=== PATIENT | female | born 1995 | race Caucasian/White ===

== ENCOUNTER 2022-01-13 12:40 | Outpatient (CLI) | payer MEDICAID, SELFPAY ==
--- NOTE | 2022-01-13 13:09 | MM_ITS ---
WS: [id number] LEFT 3D TOMOSYNTHESIS DIGITAL MAMMOGRAPHY WITH CAD CLINICAL INFORMATION: LT NIPPLE DISCHARGE / LUMP COMPARISON: None. TECHNIQUE: 3 views of the left breast were obtained. FINDINGS: Scattered fibroglandular densities of the left breast. No suspicious focal mass, asymmetry, calcifications, or architectural distortion. Ultrasound of the a reola described below ULTRASOUND BREAST LEFT TECHNIQUE: Ultrasound left breast focused area of concern. CLINICAL INFORMATION: LT NIPPLE DISCHARGE / LUMP FINDINGS: Ultrasound LEFT breast at the areola. No suspicious cystic or solid lesions. Normal parenchymal tissu e at the areola. No suspicious findings to target for biopsy MM/[place] [id number] IMPRESSION: BI-RADS: 2-Benign FOLLOW UP: Age 38 Recommend annual screen mammography age 40..
== END 2022-01-13 12:41 | disposition home or self-care (01) ==
LOC: RAD 12:41
PROVIDERS: PCP Registered Nurse; Visit Provider Registered Nurse
DX: N63.20 Unspecified lump in the left breast, unspecified quadrant (principal); N64.52 Nipple discharge
CPT/HCPCS: 76642; 77061

== ENCOUNTER → 2022-04-14 12:11 | Outpatient (BNVA) | payer MEDICAID, SELFPAY | PROVIDERS: PCP Registered Nurse; Visit Provider Nurse Practitioner | DX: S80.10XA Contusion of unspecified lower leg, initial encounter (principal); T14.8XXA Other injury of unspecified body region, initial encounter; X58.XXXA Exposure to other specified factors, initial encounter | CPT/HCPCS: 80053; 84443; 85025 ==

== ENCOUNTER → 2022-09-28 13:48 | Outpatient (BNVA) | payer MEDICAID, SELFPAY | PROVIDERS: PCP Nurse Practitioner; Visit Provider Nurse Practitioner | DX: E66.9 Obesity, unspecified (principal) | CPT/HCPCS: 80053; 84443 ==

== ENCOUNTER → 2022-12-28 08:14 | Outpatient (BNVA) | payer MEDICAID, SELFPAY | PROVIDERS: PCP Nurse Practitioner; Visit Provider Nurse Practitioner Family | DX: R10.9 Unspecified abdominal pain (principal) | CPT/HCPCS: 81000 ==

== ENCOUNTER → 2023-01-04 09:28 | Outpatient (BNVA) | payer MEDICAID, SELFPAY | PROVIDERS: PCP Nurse Practitioner; Visit Provider Nurse Practitioner Family | DX: R30.0 Dysuria (principal) | CPT/HCPCS: 81000 ==

== ENCOUNTER → 2023-04-27 13:20 | Outpatient (BNVA) | payer MEDICAID, SELFPAY | PROVIDERS: PCP Nurse Practitioner; Visit Provider Nurse Practitioner Family | DX: E66.9 Obesity, unspecified (principal); R42 Dizziness and giddiness; Z79.899 Other long term (current) drug therapy; Z13.6 Encounter for screening for cardiovascular disorders; K21.9 Gastro-esophageal reflux disease without esophagitis; H66.90 Otitis media, unspecified, unspecified ear; R09.81 Nasal congestion | CPT/HCPCS: 80053; 80061; 81003; 83036; 84443; 85025 ==

== ENCOUNTER → 2023-05-17 10:47 | Outpatient (BNVA) | payer MEDICAID, SELFPAY | PROVIDERS: PCP Nurse Practitioner; Visit Provider Nurse Practitioner Family | DX: E66.9 Obesity, unspecified (principal); K21.9 Gastro-esophageal reflux disease without esophagitis; Z79.899 Other long term (current) drug therapy; D64.9 Anemia, unspecified; M54.9 Dorsalgia, unspecified | CPT/HCPCS: 80048; 83036; 83550 ==

== ENCOUNTER → 2023-11-13 14:08 | Outpatient (BNVA) | payer MEDICAID, SELFPAY | PROVIDERS: PCP Nurse Practitioner Family; Visit Provider Nurse Practitioner Family | DX: N39.0 Urinary tract infection, site not specified (principal); R51.9 Headache, unspecified | CPT/HCPCS: 81003; 87086 ==

== ENCOUNTER → 2024-01-26 15:43 | Outpatient (BNVA) | payer MEDICAID, SELFPAY | PROVIDERS: PCP Nurse Practitioner Family; Visit Provider Emergency Medicine | DX: J02.9 Acute pharyngitis, unspecified (principal) | CPT/HCPCS: 87880 ==

== ENCOUNTER → 2024-02-29 11:36 | Outpatient (BNVA) | payer MEDICAID, SELFPAY | PROVIDERS: PCP Nurse Practitioner Family; Visit Provider Nurse Practitioner | DX: S49.92XA Unspecified injury of left shoulder and upper arm, initial encounter (principal); X58.XXXA Exposure to other specified factors, initial encounter | CPT/HCPCS: 73030 ==

== ENCOUNTER 2024-03-24 15:07 | Emergency (ER) | payer BC, MEDICAID, SELFPAY ==
[2024-03-24 15:19] VITALS: BP 126/78; PULSE 80; RESP 18; TEMP 36.7; O2SAT 98; BMI 51.0
--- NOTE | 2024-03-24 16:17 | ECG_ITS ---
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
--- NOTE | 2024-03-24 16:19 | ED_ITS ---
HPI - Anxiety General: Chief Complaint: Anxiety Stated Complaint: high bp Time Seen by Provider: 03/24/24 16:00 Source: patient Mode of arrival: ambulatory Limitations: no limitations History of Present Illness: 28-year-old female with a history anxiet y along with anxiety attack states she had had a panic attack today. States she had had palpitations felt dizzy and was hypotensive which is how she normally feels with her panic attack [facility] here due to her hypertension she states she feels much improved and calm here currently her blood pressure here is normal denies any chest pain currently denies any dizziness currently denies headache. Associated symptoms: Reports palpitations; Deny chest pain, chills, fever(s), headache(s), nausea or vomiting Related Data Previous Rx's Medication Instructions Recorded montelukast 10 mg tablet 10 mg PO DAILY #30 tabs 07/04/22 (Singulair) diclofenac sodium 1 % topical gel 2 g topical QID #100 grams 07/06/22 (Voltaren Arthritis Pain) ferrous sulfate 325 mg (65 mg 325 mg PO DAILY #90 tabs 05/18/23 iron) tablet celecoxib 100 mg capsule (Celebrex) 100 mg PO BID #60 caps 09/05/23 metformin 500 mg tablet 500 mg PO BIDWMEAL #60 tabs 10/02/23 magnesium oxide 400 mg (241.3 mg See Rx Instructions PO DAILY #60 11/13/23 magnesium) tablet tabs omeprazole 40 mg capsule,delayed 40 mg PO DAILY #90 caps 11/27/23 release aripiprazole 5 mg tablet See Rx Instructions .Route 11/28/23 .COMPLEX #30 tabs sertraline 100 mg tablet See Rx Instructions .Route 11/28/23 .COMPLEX #60 tabs fluticasone propionate 50 See Rx Instructions .Route 12/04/23 mcg/actuation nasal .COMPLEX #16 grams spray,suspension ibuprofen 600 mg tablet 600 mg PO Q8H PRN pain #30 tabs 01/26/24 diclofenac sodium 3 % topical gel 1 applic topical BID PRN pain #100 02/29/24 grams Allergies Allergy/AdvReac Type Severity Reaction Status Date / Time duloxetine Allergy sedation Verified 02/29/24 11:14 Review of Systems Const: Denies: fever(s), chills, body aches or change in appetite ENMT: Denies: throat pain or dental pain Card: Reports: palpitations; Denies: chest pain Resp: Denies: dyspnea GI: Denies: abdominal pain, nausea, vomiting or diarrhea Musc: Denies: neck pain or back pain Skin/Breast: Denies: rash Neuro: Denies: headache(s) Psych: Reports: anxiety PFSH ED PFSH: Medical History Headache Urinary tract infection Nasal congestion Otitis media Encounter for screening for cardiovascular disorders Medication management Obesity COVID-19 Pulmonary embolism Migraine Depression Family History Other Psychiatric illness Denies family history of Diabetes CAD (coronary artery disease) Chronic kidney disease (CKD) Lung disease Cancer Hypertension Stroke Social History Smoking and tobacco/nicotine status: never used tobacco/nicotine Alcohol intake: never Substance/Drug Use: never Physical Exam Const: COMMON NORMALS: no acute distress, patient oriented x3 and healthy appearing HENMT: COMMON NORMALS: normocephalic and atraumatic HEAD & SCALP: normocephalic and atraumatic Eye: COMMON NORMALS: Equal, round and reactive pupils present and EOMs intact bilaterally PUPIL: Yes Equal, round and reactive pupils present Neck/C-Spine: COMMON NORMALS: full ROM and supple Chest: COMMONS NORMALS: normal inspection of the chest Resp: COMMON NORMALS: normal respiratory effort, No retractions, No use of accessory muscles and clear to auscultation bilaterally AUSCULTATION: clear to auscultation bilaterally Cardio: COMMON NORMALS: regular rate, regular rhythm and No murmurs present (Cardio) RATE: regular rate RHYTHM: regular rhythm Extremity: COMMON NORMALS: normal to inspection and full ROM Neuro: COMMON NORMALS: patient oriented x3, moves all extremities and no focal motor deficits SPEECH: speech normal GAIT: Yes Normal gait present MOTOR EXAM: 5/5 motor strength present throughout Psych: COMMON NORMALS: mental status grossly normal, Normal thought process present and cooperative THOUGHT PROCESS: Normal thought process present Skin: COMMON NORMALS: no rashes or lesions noted and no wounds GENERAL SKIN EXAM: no rashes or lesions noted Course Vital Signs: Vital signs: Vital Signs Temperature 98.1 F 03/24/24 15:19 Pulse Rate 80 03/24/24 15:19 Respiratory Rate 18 03/24/24 15:19 Blood Pressure 126/78 03/24/24 15:19 Pulse Oximetry 98 03/24/24 15:19 Oxygen Delivery Me thod Room Air 03/24/24 15:19 MDM - Anxiety Medical Decision Making Patient presents here with anxiety attack she is well-appearing here asymptomatic here able to ambulate without any difficulty she stable for discharge follow-up with PCP return if worsening. Medical Records I reviewed the patient's medical records. No radiology studies performed this visit EKG Data EKG 1: I personally reviewed and interpreted this EKG as follows: EKG interpretation date: 03/24/24 EKG interpretation time: 16:22 Interpretation: nsr hr [address] elevation qrs 80 qtc 407 Discharge Plan Discharge Patient Disposition: Home Clinical Impression: Acute anxiety Condition: Stable Prescriptions: No Action montelukast [Singulair] 10 mg tablet 10 mg PO DAILY Qty: 30 3RF diclofenac sodium [Voltaren Arthritis Pain] 1 % gel 2 g topical QID Qty: 100 0RF Rx Instructions: apply to area of pain magnesium oxide 400 mg (241.3 mg magnesium) tablet See Rx Instructions PO DAILY Qty: 60 0RF Rx Instructions: take 1 tab daily and can take 1 every 4 hours with headache orally daily; ibuprofen 600 mg tablet 600 mg PO Q8H PRN (Reason: pain) Qty: 30 0RF diclofenac sodium 3 % gel 1 applic topical BID PRN (Reason: pain) Qty: 100 0RF ferrous sulfate 325 mg (65 mg iron) tablet 325 mg PO DAILY Qty: 90 3RF celecoxib [Celebrex] 100 mg capsule 100 mg PO BID Qty: 60 3RF metformin 500 mg tablet 500 mg PO BIDWMEAL Qty: 60 4RF omeprazole 40 mg capsule,delayed release(DR/EC) 40 mg PO DAILY Qty: 90 3RF sertraline 100 mg tablet See Rx Instructions .ROUTE .COMPLEX Qty: 60 0RF Dose Instruction: TAKE 2 TABLETS BY MOUTH EVERY DAY Rx Instructions: TAKE 2 TABLETS BY MOUTH EVERY DAY aripiprazole 5 mg tablet See Rx Instructions .ROUTE .COMPLEX Qty: 30 0RF Dose Instruction: TAKE 1 TABLET BY MOUTH EVERY DAY Rx Instructions: TAKE 1 TABLET BY MOUTH EVERY DAY fluticasone propionate 50 mcg/actuation spray,suspension See Rx Instructions .ROUTE .COMPLEX Qty: 16 1RF Dose Instruction: ADMINISTER 1 SPRAY INTO EACH NOSTRIL TWICE DAILY NEEDED FOR NASAL CONGESTION Rx Instructions: ADMINISTER 1 SPRAY INTO EACH NOSTRIL TWICE DAILY NEEDED FOR NASAL CONGESTION Discharge Orders: Discharge ED (Routine); Ordered 03/24/24 Ordered By: Attila Molina Referrals: Haresh Cummins FNP [Primary Care Provider] - 4-7 days Discharge Diet: Advance as tolerated Discharge Activity: Resume usual activity Patient Instructions: Anxiety (ED) Coding Level of Care Code ED Baby Registry Sales Consultant for Ankit Powers
[2024-03-24 16:43] VITALS: BP 136/72; PULSE 91; O2SAT 98
[2024-03-24] MEDS: meclizine 25 mg tablet 50 MG PO (16:43)
== END 2024-03-24 16:44 | disposition home or self-care (01) ==
PROVIDERS: Emergency Provider Emergency Medicine; PCP Nurse Practitioner Family
DX: F41.8 Other specified anxiety disorders (principal); Z86.711 Personal history of pulmonary embolism
CPT/HCPCS: 93005; 99283; J8597

== ENCOUNTER → 2024-04-28 10:27 | Outpatient (BNVA) | payer BC, MEDICAID, SELFPAY | PROVIDERS: PCP Nurse Practitioner Family; Visit Provider Nurse Practitioner | DX: R50.9 Fever, unspecified (principal) | CPT/HCPCS: 87400 ==

== ENCOUNTER → 2024-05-07 15:26 | Outpatient (BNVA) | payer BC, MEDICAID, SELFPAY | PROVIDERS: PCP Nurse Practitioner Family | DX: R39.9 Unspecified symptoms and signs involving the genitourinary system (principal) | CPT/HCPCS: 81000 ==

== ENCOUNTER → 2024-07-03 16:34 | Outpatient (BNVA) | payer BC, MEDICAID, SELFPAY | PROVIDERS: PCP Nurse Practitioner Family; Visit Provider Emergency Medicine | DX: M25.561 Pain in right knee (principal) | CPT/HCPCS: 73562 ==

== ENCOUNTER → 2024-08-08 10:17 | Outpatient (BNVA) | payer BC, MEDICAID, SELFPAY | PROVIDERS: PCP Nurse Practitioner Family; Visit Provider Emergency Medicine | DX: N39.0 Urinary tract infection, site not specified (principal); M54.9 Dorsalgia, unspecified | CPT/HCPCS: 81000; 87086 ==

== ENCOUNTER → 2024-08-13 12:35 | Outpatient (BNVA) | payer BC, MEDICAID, SELFPAY | PROVIDERS: PCP Nurse Practitioner Family; Visit Provider Emergency Medicine | DX: R81 Glycosuria (principal); N10 Acute pyelonephritis | CPT/HCPCS: 82962; 87086 ==

== ENCOUNTER → 2024-08-15 14:51 | Outpatient (BNVA) | payer BC, MEDICAID, SELFPAY | PROVIDERS: PCP Family Medicine; Visit Provider Emergency Medicine | DX: R52 Pain, unspecified (principal); R53.83 Other fatigue; W57.XXXA Bitten or stung by nonvenomous insect and other nonvenomous arthropods, initial encounter | CPT/HCPCS: 80053; 84443; 85025; 86308; 86618; 86666; 86757 ==

== ENCOUNTER 2024-09-04 21:06 | Emergency (ER) | payer BC, MEDICAID, SELFPAY ==
[2024-09-04 21:10] VITALS: BP 153/91; PULSE 84; RESP 16; TEMP 36.7; O2SAT 98
[2024-09-04 22:56] LABS: Influenza A NEGATIVE (Negative); Influenza B NEGATIVE (Negative); Respiratory Syncytial Virus Ce NEGATIVE (Negative); SARS-CoV-2 PCR NEGATIVE (Negative)
--- NOTE | 2024-09-04 23:56 | W.ED.URI ---
HPI - URI/Sore Throat General: Chief Complaint: Upper Respiratory Infection Stated Complaint: Cant breathe throat swelling Time Seen by Provider: 09/04/24 22:34 Source: patient Mode of arrival: ambulatory Limitations: no limitations History of Present Illness: 28yo female presents with hoarse voice. Patient states that it started this morning. She states her left ear has been hurting her a little as well. Patient denies sore throat, congestion, difficulty breathing, vomiting, diarrhea. Associated symptoms: Deny abdominal pain, chills, chest pain or fever(s) Related Data Previous Rx's ?Medication ?Instructions ?Recorded ferrous sulfate 325 mg (65 mg 325 mg PO DAILY #90 tabs 05/18/23 iron) tablet metformin 500 mg tablet 500 mg PO BIDWMEAL #60 tabs 10/02/23 magnesium oxide 400 mg (241.3 mg See Rx Instructions PO DAILY #60 11/13/23 magnesium) tablet tabs omeprazole 40 mg capsule,delayed 40 mg PO DAILY #90 caps 11/27/23 release aripiprazole 5 mg tablet See Rx Instructions .Route 11/28/23 .COMPLEX #30 tabs sertraline 100 mg tablet See Rx Instructions .Route 11/28/23 .COMPLEX #60 tabs fluticasone propionate 50 See Rx Instructions .Route 12/04/23 mcg/actuation nasal .COMPLEX #16 grams spray,suspension ibuprofen 600 mg tablet 600 mg PO Q8H PRN pain #30 tabs 01/26/24 meclizine 50 mg tablet 50 mg PO BID #20 tabs 04/28/24 albuterol sulfate 90 mcg/actuation 2 puff inhalation Q6H PRN 08/08/24 aerosol inhaler shortness of breath or wheezing #8.5 grams ondansetron 4 mg disintegrating 4 mg PO Q6H PRN nausea and 08/08/24 tablet vomiting #12 tabs fluconazole 150 mg tablet 150 mg PO Q3D 2 doses #2 tabs 08/13/24 promethazine 25 mg tablet 25 mg PO Q4H PRN nausea and 08/13/24 vomiting #20 tabs amoxicillin 875 mg-potassium 1 tab PO BID #7 tabs 09/04/24 clavulanate 125 mg tablet Allergies Allergy/AdvReac Type Severity Reaction Status Date / Time duloxetine Allergy sedation Verified 09/04/24 21:13 Review of Systems Const: Denies: fever(s), chills or body aches ENMT: Reports: other (Hoarse voice) Card: Denies: chest pain Resp: Denies: dyspnea GI: Denies: abdominal pain PFSH ED PFSH: Medical History Headache Urinary tract infection Nasal congestion Otitis media Encounter for screening for cardiovascular disorders Medication management Obesity COVID-19 Pulmonary embolism Migraine Depression Surgical History History of hysterectomy only 1 ovary History of Family History Other Psychiatric illness Denies family history of Diabetes CAD (coronary artery disease) Chronic kidney disease (CKD) Lung disease Cancer Hypertension Stroke Social History Smoking and tobacco/nicotine status: never used tobacco/nicotine Alcohol intake: never Substance/Drug Use: never Household members: spouse and children Marital status: Number of children: 3 Current gender identity: Female Physical Exam Const: COMMON NORMALS: no acute distress, patient oriented x3 and alert GENERAL APPEARANCE: cooperative ORIENTATION/CONSCIOUSNESS: Yes awake OTHER: Patient is sitting upright on the stretcher no acute distress. She is able to give history with no difficulty. She is interactive with exam appropriately. No family is at bedside HENMT: COMMON NORMALS: normocephalic, atraumatic and Normal external nose present HEAD & SCALP: normocephalic and atraumatic NOSE: Normal external nose present and No nasal discharge present TYMPANIC MEMBRANE: TM abnormal TM laterality: left Details: bulging, effusion, fluid behind TM and loss of landmarks MOUTH: other (Hoarse voice) THROAT: postnasal drainage Neck/C-Spine: COMMON NORMALS: full ROM Chest: CHEST: Yes Symmetrical chest wall rise Resp: COMMON NORMALS: normal respiratory effort and clear to auscultation bilaterally AUSCULTATION: clear to auscultation bilaterally Neuro: COMMON NORMALS: patient oriented x3 SENSORIUM/ORIENTATION: Yes alert Psych: COMMON NORMALS: cooperative Course Vital Signs: Vital signs: Vital Signs Temperature 98.1 F 09/04/24 21:10 Pulse Rate 93 09/05/24 00:07 Respiratory Rate 16 09/05/24 00:07 Blood Pressure 108/85 09/05/24 00:07 Pulse Oximetry 96 09/05/24 00:07 Oxygen Delivery Me thod Room Air 09/04/24 21:10 MDM - URI/Sore Throat Medical Decision Making 28yo female presents with hoarse voice. Patient states that it started this morning. She states her left ear has been hurting her a little as well. Patient denies sore throat, congestion, difficulty breathing, vomiting, diarrhea. Patient is nontoxic in appearance. Vital signs are stable. Influenza A/B, COVID-19, and RSV not detected. Discussed findings with patient. Advised this likely a upper respiratory infection. Left otitis media noted on exam. Augmentin prescribed, first dose provided while in the emergency department. Advised patient to increase her fluid intake and continue to monitor symptoms. Recommend she follow-up with primary care, call in about a week with an update of symptoms and to discuss a recheck. Return precautions provided. Patient states understanding and has no further questions or concerns at this time. Differential Diagnosis Likely upper respiratory infection, otitis media, sinusitis and pharyngitis Lab Data I reviewed the patient's lab results. Laboratory Results Influenza A (PCR) Negative (Negative) 09/04/24 22:16 Influenza Type B (PCR) Negative (Negative) 09/04/24 22:16 RSV (PCR) Negative (Negative) 09/04/24 22:16 SARS-CoV-2 (PCR) Negative (Negative) 09/04/24 22:16 No radiology studies performed this visit Discharge Plan Discharge Patient Disposition: Home Clinical Impression: Acute left otitis media URI (upper respiratory infection) Qualifiers: URI type: unspecified viral URI Qualified Code(s): J06.9 - Acute upper respiratory infection, unspecified Condition: Stable Prescriptions: New amoxicillin-pot clavulanate 875-125 mg tablet 1 tab PO BID Qty: 7 0RF Discontinued levofloxacin 750 mg tablet 750 mg PO DAILY 7 Days Qty: 7 0RF No Action albuterol sulfate 90 mcg/actuation HFA aerosol inhaler 2 puff inhalation Q6H PRN (Reason: shortness of breath or wheezing) Qty: 8.5 0RF ondansetron 4 mg tablet,disintegrating 4 mg PO Q6H PRN (Reason: nausea and vomiting) Qty: 12 0RF Rx Instructions: 340b please fluconazole 150 mg tablet 150 mg PO Q3D 0 Days Qty: 2 1RF Rx Instructions: may repeat second dose 72 hrs after first dose if symptoms persist promethazine 25 mg tablet 25 mg PO Q4H PRN (Reason: nausea and vomiting) Qty: 20 1RF magnesium oxide 400 mg (241.3 mg magnesium) tablet See Rx Instructions PO DAILY Qty: 60 0RF Rx Instructions: take 1 tab daily and can take 1 every 4 hours with headache orally daily; ibuprofen 600 mg tablet 600 mg PO Q8H PRN (Reason: pain) Qty: 30 0RF meclizine 50 mg tablet 50 mg PO BID Qty: 20 0RF ferrous sulfate 325 mg (65 mg iron) tablet 325 mg PO DAILY Qty: 90 3RF metformin 500 mg tablet 500 mg PO BIDWMEAL Qty: 60 4RF omeprazole 40 mg capsule,delayed release(DR/EC) 40 mg PO DAILY Qty: 90 3RF sertraline 100 mg tablet See Rx Instructions .ROUTE .COMPLEX Qty: 60 0RF Dose Instruction: TAKE 2 TABLETS BY MOUTH EVERY DAY Rx Instructions: TAKE 2 TABLETS BY MOUTH EVERY DAY aripiprazole 5 mg tablet See Rx Instructions .ROUTE .COMPLEX Qty: 30 0RF Dose Instruction: TAKE 1 TABLET BY MOUTH EVERY DAY Rx Instructions: TAKE 1 TABLET BY MOUTH EVERY DAY fluticasone propionate 50 mcg/actuation spray,suspension See Rx Instructions .ROUTE .COMPLEX Qty: 16 1RF Dose Instruction: ADMINISTER 1 SPRAY INTO EACH NOSTRIL TWICE DAILY NEEDED FOR NASAL CONGESTION Rx Instructions: ADMINISTER 1 SPRAY INTO EACH NOSTRIL TWICE DAILY NEEDED FOR NASAL CONGESTION Discharge Orders: Discharge ED (Routine); Ordered 09/05/24 Ordered By: Romeo Caro Referrals: Kayden Kitchen MD [Primary Care Provider, Family Practice] Discharge Diet: Usual diet Discharge Activity: Resume usual activity Patient Instructions: Otitis Media - Adult, Upper Respiratory Infection (ED) Activity Restrictions/Additional Instructions: Augmentin has been sent to the pharmacy for the ear infection The sore throat and postnasal drip is likely related to a viral infection. If there is any bacterial component, Augmentin would cover it Increase your fluid intake and continue to monitor symptoms Follow-up with primary care, call Monday with an update of symptoms and to discuss a recheck Return to the emergency department if any rapid worsening symptoms and as needed Print Language: Swedish Coding Level of Care Code ED Appliquer Zigzag for Ankit Powers
[2024-09-05] MEDS: amoxicillin-clav 875-125 mg Tablet 1 TAB PO (00:05)
[2024-09-05 00:07] VITALS: BP 108/85; PULSE 93; RESP 16; O2SAT 96
== END 2024-09-05 00:08 | disposition home or self-care (01) ==
PROVIDERS: General Practice; Emergency Provider Nurse Practitioner; PCP Family Medicine
DX: J06.9 Acute upper respiratory infection, unspecified (principal); H66.92 Otitis media, unspecified, left ear; Z79.84 Long term (current) use of oral hypoglycemic drugs; Z79.899 Other long term (current) drug therapy; Z88.8 Allergy status to other drugs, medicaments and biological substances; Z11.52 Encounter for screening for COVID-19
CPT/HCPCS: 87637; 99283; J9999

== ENCOUNTER → 2024-11-22 10:54 | Outpatient (BNVA) | payer BC, MEDICAID, SELFPAY | PROVIDERS: PCP Family Medicine; Visit Provider Emergency Medicine | DX: R10.9 Unspecified abdominal pain (principal) | CPT/HCPCS: 81000 ==

== ENCOUNTER 2024-11-25 17:51 | Emergency (ER) | payer BC, MEDICAID, SELFPAY ==
[2024-11-25 18:07] VITALS: BP 134/84; PULSE 87; RESP 16; TEMP 37; O2SAT 97; BMI 52.1
[2024-11-25 18:17] VITALS: BP 134/85; O2SAT 96
--- NOTE | 2024-11-25 19:32 | W.ED.FEMALGU ---
HPI - Female Genitourinary General: Chief complaint: Vaginal Bleeding Stated complaint: vaginal bleeding, abd and vaginal pain Time Seen by Provider: 11/25/24 18:16 History of Present Illness: Patient is a 29-year-old female with history of coagulopathy, no longer on AC, previous DVT, hysterectomy, reports to ED after utilizing sexual toy yesterday with , and had some bleeding. She has also had low back pain that she has seen her primary care physician for. This is on the lower left side. The bleeding per vagina was directly after penetration by mechanical toy. This has been on and off and has streaks noted per vagina. No correlation to urination. No urinary symptoms. Same sexual partners for the last 12 years. Recent STI testing per patient. Associated symptoms: Deny abdominal pain or nausea Related Data Previous Rx's ?Medication ?Instructions ?Recorded omeprazole 40 mg capsule,delayed 40 mg PO DAILY #90 caps 11/27/23 release fluticasone propionate 50 See Rx Instructions .Route 12/04/23 mcg/actuation nasal .COMPLEX #16 grams spray,suspension albuterol sulfate 90 mcg/actuation 2 puff inhalation Q6H PRN 10/28/24 aerosol inhaler shortness of breath or wheezing #8.5 grams aripiprazole 5 mg tablet 5 mg PO DAILY #30 tabs 10/30/24 bupropion HCl 300 mg 24 hr tablet, 300 mg PO QAM #30 tabs 10/30/24 extended release (Wellbutrin XL) sertraline 100 mg tablet 200 mg (2 x 100 mg) PO DAILY #60 10/30/24 tabs trazodone 50 mg tablet 100 mg (2 x 50 mg) PO .HS PRN 10/30/24 insomnia #60 tabs ibuprofen 800 mg tablet 800 mg PO Q8H PRN pain #30 tabs 11/22/24 methocarbamol 750 mg tablet 750 mg PO TID #30 tabs 11/22/24 prednisone 20 mg tablet 60 mg (3 x 20 mg) PO DAILY 5 days 11/22/24 #15 tabs methocarbamol 500 mg tablet 500 mg PO Q8H PRN muscle spasm #30 11/25/24 tabs methylprednisolone 4 mg tablets in See Rx Instructions PO .COMPLEX 11/25/24 a dose pack (Medrol (Lavon)) #21 ea Allergies Allergy/AdvReac Type Severity Reaction Status Date / Time duloxetine Allergy sedation Verified 11/25/24 18:10 Review of Systems General: Reports: 10 or more systems reviewed and unremarkable except in HPI and below Const: Denies: fever(s) or chills Eyes: Denies: change in vision or blurry vision ENMT: Denies: throat pain or mouth pain Card: Denies: chest pain or palpitations Resp: Denies: dyspnea or non-productive cough GI: Denies: abdominal pain, nausea or vomiting : Denies: flank pain or difficulty voiding Musc: Reports: back pain; Denies: neck pain, extremity pain or joint pain PFS ED PFSH: Medical History (Updated 11/25/24 @ 19:35 by JUAN PABLO Lewis) Psychiatric care Adult BMI 50.0-59.9 kg/sq m Headache Urinary tract infection Nasal congestion Otitis media Encounter for screening for cardiovascular disorders Medication management Obesity COVID-19 Pulmonary embolism Migraine Depression Surgical History History of hysterectomy only 1 ovary History of Family History Other Psychiatric illness Denies family history of Diabetes CAD (coronary artery disease) Chronic kidney disease (CKD) Lung disease Cancer Hypertension Stroke Social History Smoking and tobacco/nicotine status: never used tobacco/nicotine Alcohol intake: never Substance/Drug Use: never Household members: spouse and children Marital status: Number of children: 3 Current gender identity: Female Physical Exam Const: COMMON NORMALS: no acute distress, average body habitus and patient oriented x3 GENERAL APPEARANCE: cooperative HENMT: COMMON NORMALS: normocephalic and atraumatic HEAD & SCALP: normocephalic and atraumatic Neck/C-Spine: COMMON NORMALS: full ROM, no lymphadenopathy, supple and no meningeal signs Lymph: LYMPHATIC: no lymphadenopathy noted Cardio: COMMON NORMALS: regular rate and regular rhythm RATE: regular rate RHYTHM: regular rhythm : COMMON NORMALS: Yes no CVA tenderness BLADDER/KIDNEY EXAM: Yes no CVA tenderness EXTERNAL FEMALE EXAM: Yes normal appearance of the urethra and No erythema SPECULUM EXAM - VAGINA: No erythematous, No laceration and No tissue present in vagina SPECULUM EXAM - CERVIX: Yes Cervix absent and Yes Other cervical findings present (Cuff of hysterectomy is intact without erythema or bleeding. No need silve) OB/EXTERNAL & SPECULUM: no tissue noted in vagina Back/Pelvis: COMMON NORMALS: no CVA tenderness Extremity: COMMON NORMALS: normal to inspection, full ROM and capillary refill normal Neuro: COMMON NORMALS: patient oriented x3 MENINGEAL SIGNS: Yes no meningeal signs Psych: COMMON NORMALS: mental status grossly normal, Normal thought process present, cooperative, normal affect and speech normal SPEECH: Yes normal speech THOUGHT PROCESS: Normal thought process present Skin: COMMON NORMALS: no rashes or lesions noted and no wounds GENERAL SKIN EXAM: no rashes or lesions noted Course Vital Signs: Vital signs: Vital Signs Temperature 98.6 F 11/25/24 18:07 Pulse Rate 87 11/25/24 18:07 Respiratory Rate 16 11/25/24 18:07 Blood Pressure 134/85 11/25/24 18:17 Pulse Oximetry 96 11/25/24 18:17 Oxygen Delivery Me thod Room Air 11/25/24 18:07 MDM - Female Medical Decision Making Patient is a 29-year-old female, presents to the emergency room with transient vaginal bleeding post hysterectomy after sexual encounter with mechanical toys and last p.m. Patient also had left low back pain consistent with sciatica, and therefore she was concerned this was associated with her back. They appear to be 2 separate issues. I have checked her entire vaginal vault, and cuff, and there is no area amicable to silver nitrate cauterization. I cannot find an area that was bleeding. I suspect this was transient due to rough intercourse. There is no need for antibiotics or additional intervention at this time. Patient has been reassured, and sciatica has been treated. She will follow-up with her primary care physician. Medical Records I reviewed the patient's medical records. No radiology studies performed this visit Discharge Plan Discharge Patient Disposition: Home Clinical Impression: Abnormal vaginal bleeding Sciatica Qualifiers: Laterality: left Qualified Code(s): M54.32 - Sciatica, left side Condition: Stable Prescriptions: New methocarbamol 500 mg tablet 500 mg PO Q8H PRN (Reason: muscle spasm) Qty: 30 0RF methylprednisolone [Medrol (Lavon)] 4 mg tablets,dose pack See Rx Instructions .ROUTE .COMPLEX Qty: 21 0RF Rx Instructions: for 6 days No Action bupropion HCl [Wellbutrin XL] 300 mg tablet extended release 24 hr 300 mg PO QAM Qty: 30 2RF trazodone 50 mg tablet 100 mg PO .HS PRN (Reason: insomnia) Qty: 60 2RF sertraline 100 mg tablet 200 mg PO DAILY Qty: 60 2RF aripiprazole 5 mg tablet 5 mg PO DAILY Qty: 30 2RF ibuprofen 800 mg tablet 800 mg PO Q8H PRN (Reason: pain) Qty: 30 0RF prednisone 20 mg tablet 60 mg PO DAILY 5 Days Qty: 15 0RF methocarbamol 750 mg tablet 750 mg PO TID Qty: 30 0RF omeprazole 40 mg capsule,delayed release(DR/EC) 40 mg PO DAILY Qty: 90 3RF fluticasone propionate 50 mcg/actuation spray,suspension See Rx Instructions .ROUTE .COMPLEX Qty: 16 1RF Dose Instruction: ADMINISTER 1 SPRAY INTO EACH NOSTRIL TWICE DAILY NEEDED FOR NASAL CONGESTION Rx Instructions: ADMINISTER 1 SPRAY INTO EACH NOSTRIL TWICE DAILY NEEDED FOR NASAL CONGESTION albuterol sulfate 90 mcg/actuation HFA aerosol inhaler 2 puff inhalation Q6H PRN (Reason: shortness of breath or wheezing) Qty: 8.5 0RF Discharge Orders: Discharge ED (Routine); Ordered 11/25/24 Ordered By: Roseann Pabon Referrals: Kayden Kitchen MD [Primary Care Provider, [facility]] Discharge Diet: Usual diet Discharge Activity: Resume usual activity Patient Instructions: Abnormal (Dysfunctional) Uterine Bleeding (ED), Sciatica (ED), Lower Back Exercises (ED), Patient Portal & Mary Instructions Activity Restrictions/Additional Instructions: Return to ED for reoccurrence of vaginal bleeding, temperature greater than 100.4 ?F Return to your primary care physician for follow-up. Call tomorrow for an appointment follow-up next week Print Language: Polish Coding Level of Care Code ED Student Development Specialist for Ankit Powers
[2024-11-25] MEDS: orphenadrine 30 mg/mL Inj 2 mL 60 MG IM (19:51)
--- OUTSIDE RECORDS SUMMARY | 2024-11-27 12:17 | XMS_ITS | Clinical Summary ---
Author Organization [facility] Address [address] Attn: Epic Prelude ADT DONG JAIME [phone] Care Team Providers Care Special Officer Name Role Phone Belem Harper Primary Care Provider Allergies Active Allergy Reactions Criticality Noted Date Comments Duloxetine Rash Low 04/08/2024 Medications metFORMIN (GLUCOPHAGE XR) 500 mg Extended Release 24 hour tablet Take 500 mg by mouth daily. Active sertraline (ZOLOFT) 25 mg tablet Take 25 mg by mouth daily. Active ferrous gluconate 240 mg (27 mg iron) Tablet Take 240 mg by mouth. Active Active Problems Problem Noted Date Diagnosed Date Elevated d-dimer 04/08/2024 Pain and swelling of right lower leg 04/08/2024 Hyposomnia, insomnia, or sle eplessness associated with anxiety 07/21/2010 GERD (gastroesophageal reflux disease) 1 Anxiety as acute reaction to exceptional stress 07/21/2010 Encounters Date Type Department Care Team Description 11/05/2024 External Device Data [facility] ABSTRACTION Provider, Abstract 11/05/2024 External Device Data [facility] ABSTRACTION Provider, Abstract 11/05/2024 External Device Data [facility]STRACTION Provider, Abstract 10/30/2024 External Device Data [facility]STRACTION Provider, Abstract 10/29/2024 External Device Data [facility]STRACTION Provider, Abstract 10/08/2024 External Device Data [facility] ABSTRACTION Provider, Abstract 10/03/2024 Telephone [facility] [address] [place] [id number] Ramakrishna Orta MD Bariatrics 10/01/2024 External Device Data [facility] ABSTRACTION Provider, Abstract 09/24/2024 External Device Data [facility]STRACTION Provider, Abstract 09/17/2024 External Device Data [facility]STRACTION Provider, Abstract 09/05/2024 External Device Data [facility]STRACTION Provider, Abstract 09/05/2024 External Device Data [facility]STRACTION Provider, Abstract 09/04/2024 External Device Data [facility]STRACTION Provider, Abstract 09/03/2024 External Device Data [facility] ABSTRACTION Provider, Abstract from Last 3 Months Immunizations Immunization Administration Dates Next Due HPV Vaccine 3 Dose IM VFC 06/25/2010 Family History Medical History Relation Name Comments Healthy Father Healthy Mother Relation Name Status Comments Father Alive Mother Alive Social History Tobacco Use Types Packs/Day Years Used Date Smoking Tobacco: Never Smokeless Tobacco: Never Alcohol Use Standard Drinks/Week Comments Never 0 (1 standard drink = 0.6 oz pur e alcohol) Comments No Sex and Gender Information Value Date Recorded Sex Assigned at Not on file Legal Sex Female 11:43 AM CARRIAGE DOGGER Gender Identity Not on file Sexual Orientation Not on file Last Filed Vital Signs Vital Sign Reading Time Taken Comments Blood Pressure 117/72 04/08/2024 12:00 PM CARRIAGE DOGGER Pulse 70 04/08/2024 12:00 PM CARRIAGE DOGGER Temperature 36.7 C (98 F) 04/08/2024 10:22 AM CARRIAGE DOGGER Respiratory Rate 16 04/08/2024 12:00 PM CARRIAGE DOGGER Oxygen Saturation 97% 04/08/2024 12:00 PM CARRIAGE DOGGER Inhaled Oxygen Concentration - - Weight 122 kg (269 lb) 04/08/2024 10:22 AM CARRIAGE DOGGER Height 154.9 cm (5' 1 ) 04/08/2024 10:22 AM CARRIAGE DOGGER Body Mass Index 50.83 04/08/2024 10:22 AM CARRIAGE DOGGER Plan of Treatment Health Maintenance Due Date Last Done Comments HPV VACCINES (2 - 3-dose series) 07/23/2010 06/26/19 11 DTAP/TDAP/TD VACCINES (1 - Tdap) 2012 HEPATITIS B VACCINES (1 of 3 - 19+ 3-dose series) 04/2012 INFLUENZA VACCINE (#1) 2024 Insurance [employer] Care Teams Special Officer Relationship Specialty Start Date End Date Belem Harper DO [address] [place] [address] PCP - General Family Practice 06/07/10
== END 2024-11-25 19:55 | disposition home or self-care (01) ==
PROVIDERS: Emergency Provider Physician Assistant; PCP Family Medicine
DX: N93.9 Abnormal uterine and vaginal bleeding, unspecified (principal); M54.32 Sciatica, left side
CPT/HCPCS: 96372; 99284; J1885; J2360

== ENCOUNTER 2024-11-29 20:54 | Emergency (ER) | payer BC, MEDICAID, SELFPAY ==
[2024-11-29 20:58] VITALS: BP 148/98; PULSE 98; RESP 17; TEMP 36.6; O2SAT 98; BMI 52.3
--- OUTSIDE RECORDS SUMMARY | 2024-11-29 21:02 | XMS_ITS | Clinical Summary ---
Author Organization [facility] Address [address] Attn: Epic Prelude ADT DONG JAIME [phone] Care Team Providers Care Center Mgr Name Role Phone Belem Harper Primary Care [...] [facility] ABSTRACTION Provider, Abstract 10/03/2024 Telephone [facility] [address] [place] [phone] Ramakrishna Orta MD Bariatrics 10/01/2024 External Device [...] on file Legal Sex Female 11:43 AM DIRECTOR OF LEADERSHIP DEVELOPMENT Gender Identity Not on file Sexual Orientation Not on file Last Filed Vital Signs Vital Sign Reading Time Taken Comments Blood Pressure 117/72 04/08/2024 12:00 PM DIRECTOR OF LEADERSHIP DEVELOPMENT Pulse 70 04/08/2024 12:00 PM DIRECTOR OF LEADERSHIP DEVELOPMENT Temperature 36.7 C (98 F) 04/08/2024 10:22 AM DIRECTOR OF LEADERSHIP DEVELOPMENT Respiratory Rate 16 04/08/2024 12:00 PM DIRECTOR OF LEADERSHIP DEVELOPMENT Oxygen Saturation 97% 04/08/2024 12:00 PM DIRECTOR OF LEADERSHIP DEVELOPMENT Inhaled Oxygen Concentration - - Weight 122 kg (269 lb) 04/08/2024 10:22 AM DIRECTOR OF LEADERSHIP DEVELOPMENT Height 154.9 cm (5' 1 ) 04/08/2024 10:22 AM DIRECTOR OF LEADERSHIP DEVELOPMENT Body Mass Index 50.83 04/08/2024 10:22 AM DIRECTOR OF LEADERSHIP DEVELOPMENT Plan of Treatment Health Maintenance Due Date Last Done Comments HPV VACCINES (2 - 3-dose series) 07/23/2010 06/26/19 11 DTAP/TDAP/TD VACCINES (1 - Tdap) 2012 HEPATITIS B VACCINES (1 of 3 - 19+ 3-dose series) 04/2012 INFLUENZA VACCINE (#1) 2024 Insurance [employer] Care Teams Center Mgr Relationship Specialty Start Date End Date Belem Harper DO [address] [place] [address] PCP - General Family Practice 06/07/10
--- NOTE | 2024-11-29 21:41 | W.ED.BACK ---
HPI - Back Pain/Injury General: Chief Complaint: Back Pain/Injury Stated Complaint: SOB worse, shot spot has a large lump Time Seen by Provider: 11/29/24 21:16 History of Present Illness: 29yp female patient reports pain localized to the left lower flank area that has been present for days but has significantly worsened recently. She describes the pain as throbbing and persistent, stating it 'won't go away.' The patient visited another provider on Monday who diagnosed her with sciatic nerve pain and administered an injection described as a muscle relaxer. However, the patient reports that the injection may have made her symptoms worse rather than providing relief. The pain is primarily located in the lower rib area, distinct from where the injection was given. She denies fever and reports no urinary symptoms. The patient experiences some difficulty breathing, which she attributes to the pain rather than respiratory pathology. She has been taking [id number] pain medications at home without significant relief. The patient describes the pain intensity as comparable to labor pain, indicating severe discomfort. She denies having experienced similar pain episodes in the past. Related Data Previous Rx's ?Medication ?Instructions ?Recorded omeprazole 40 mg capsule,delayed 40 mg PO DAILY #90 caps 11/27/23 release fluticasone propionate 50 See Rx Instructions .Route 12/04/23 mcg/actuation nasal .COMPLEX #16 grams spray,suspension albuterol sulfate 90 mcg/actuation 2 puff inhalation Q6H PRN 10/28/24 aerosol inhaler shortness of breath or wheezing #8.5 grams ibuprofen 800 mg tablet 800 mg PO Q8H PRN pain #30 tabs 11/22/24 methocarbamol 750 mg tablet 750 mg PO TID #30 tabs 11/22/24 prednisone 20 mg tablet 60 mg (3 x 20 mg) PO DAILY 5 days 11/22/24 #15 tabs methocarbamol 500 mg tablet 500 mg PO Q8H PRN muscle spasm #30 11/25/24 tabs methylprednisolone 4 mg tablets in See Rx Instructions PO .COMPLEX 11/25/24 a dose pack (Medrol (Lavon)) #21 ea aripiprazole 5 mg tablet 5 mg PO DAILY #30 tabs 11/29/24 bupropion HCl 300 mg 24 hr tablet, 300 mg PO QAM #30 tabs 11/29/24 extended release (Wellbutrin XL) sertraline 100 mg tablet 200 mg (2 x 100 mg) PO DAILY #60 11/29/24 tabs trazodone 50 mg tablet 100 mg (2 x 50 mg) PO .HS PRN 11/29/24 insomnia #60 tabs Allergies Allergy/AdvReac Type Severity Reaction Status Date / Time duloxetine Allergy sedation Verified 11/29/24 15:02 [facility] ED PFSH: Medical History Psychiatric care Adult BMI 50.0-59.9 kg/sq m Headache Urinary tract infection Nasal congestion Otitis media Encounter for screening for cardiovascular disorders Medication management Obesity COVID-19 Pulmonary embolism Migraine Depression Surgical History History of hysterectomy only 1 ovary History of Family History Other Psychiatric illness Denies family history of Diabetes CAD (coronary artery disease) Chronic kidney disease (CKD) Lung disease Cancer Hypertension Stroke Social History Smoking and tobacco/nicotine status: never used tobacco/nicotine Alcohol intake: never Substance/Drug Use: never Household members: spouse and children Marital status: Number of children: 3 Current gender identity: Female Physical Exam Const: GENERAL APPEARANCE: cooperative and anxious; not ill appearing HENMT: COMMON NORMALS: normocephalic, atraumatic and Normal external nose present HEAD & SCALP: normocephalic and atraumatic FACE & SINUS: normal facial exam and face symmetric NOSE: Normal external nose present Eye: COMMON NORMALS: Equal, round and reactive pupils present and EOMs intact bilaterally PUPIL: Yes Equal, round and reactive pupils present Neck/C-Spine: GENERAL: Yes trachea midline Chest: CHEST: Yes Symmetrical chest wall rise Resp: COMMON NORMALS: normal respiratory effort, No retractions, No use of accessory muscles and clear to auscultation bilaterally AUSCULTATION: clear to auscultation bilaterally Cardio: COMMON NORMALS: regular rate and regular rhythm RATE: regular rate RHYTHM: regular rhythm GI: COMMON NORMALS: Normal to inspection, nondistended, normoactive bowel sounds present Extremity: COMMON NORMALS: no pedal edema Neuro: [place] COMA SCALE: document GCS findings [place] coma scale eye opening: Spontaneous [place] coma scale verbal response: Orientated [place] coma scale motor response: Obey commands [place] coma scale total score: 15 SENSORY EXAM: Yes extremities (intact) Psych: COMMON NORMALS: speech normal SPEECH: Yes normal speech Skin: COMMON NORMALS: no rashes or lesions noted GENERAL SKIN EXAM: no rashes or lesions noted Course Vital Signs: Vital signs: Vital Signs Temperature 101.8 F H 11/30/24 02:35 Pulse Rate 112 H 11/30/24 02:30 Respiratory Rate 18 11/30/24 02:30 Blood Pressure 133/78 11/30/24 02:30 Pulse Oximetry 95 11/30/24 02:30 Oxygen Delivery Me thod Room Air 11/30/24 02:30 MDM - Back Pain/Injury Medical Decision Making Patient is hypertensive. She is afebrile. She is vomiting. She has had 8 of morphine, 4 Zofran. White blood cell count is 16.4. BMP normal. Urinalysis shows a nitrate +2+ leukocyte esterase greater than [address] scan she has a 5 mm stone in the left distal ureter with hydroureter and hydronephrosis. This is an infected stone in a patient who is vomiting and still in pain despite 8 mg of morphine. She will need urological consultation. Spoke with our counterparts at [facility] in [place]. They are willing to take in transfer. Labs 11/29/24 22:00 11/29/24 22:00 Radiology Impressions Chest/Abdomen/Pelvis CT 11/29/24 22:20 IMPRESSION: 1. No pulmonary emboli. 2. Prominent bilateral hilar lymph nodes. These may be reactive in nature. 3. Multiple pulmonary nodules in the inferior anterior aspect of the right upper lobe and superior anterior aspect of the right middle lobe measuring up to 7 mm. Juxtapleural 7 mm pulmonary nodule in the lingula (series 8, image 262). For patients at low risk (minimal or absent history of smoking and of other known risk factors), recommend CT Chest at 3-6 months, then consider CT Chest at 18-24 months. For patients at high risk (history of smoking or of other known risk factors), recommend CT Chest at 3-6 months, IMPRESSION: There is a 5 mm pulmonary nodule in the distal left ureter with upstream hydroureter and mild hydronephrosis. COMMENTS: Consistent with the [employer]'s Incidental Findings Committee white paper (J Am Anne Radiol 2018): Any incidental renal lesion less than 1 cm or classified as too small to characterize, or any incidental cystic renal lesion characterized as simple-appearing, is likely benign. No follow-up imaging is recommended for these lesions per consensus recommendations based on imaging criteria. Laboratory Results WBC 16.37 10^3/uL (3.29-11.43) H 11/29/24 22:00 RBC 4.99 10^6/uL (3.85-5.65) 11/29/24 22:00 Hgb 13.20 g/dL (11.27-16.99) 11/29/24 22:00 Hct 41.2 % (36-47) 11/29/24 22:00 MCV 82.6 fl (85-98) L 11/29/24 22:00 MCH 26.5 pg (27-33) L 11/29/24 22:00 MCHC 32.0 g/dL (30-55) 11/29/24 22:00 RDW 15.5 % (12.1-15.1) H 11/29/24 22:00 Plt Count 423 10^3/cmm (157-399) H 11/29/24 22:00 MPV 9.1 fL (7.4-10.4) 11/29/24 22:00 Neut % (Auto) 78.9 % 11/29/24 22:00 Lymph % (Auto) 13.7 % 11/29/24 22:00 [place] % (Auto) 4.3 % 11/29/24 22:00 Eos % (Auto) 2.1 % 11/29/24 22:00 Baso % (Auto) 0.5 % 11/29/24 22:00 Neut # (Auto) 12.88 10^3/uL (1.8-7.7) H 11/29/24 22:00 Lymph # (Auto) 2.3 10^3/uL (0.8-4.8) 11/29/24 22:00 [place] # (Auto) 0.7 10^3/uL (0.2-0.9) 11/29/24 22:00 Eos # (Auto) 0.4 10^3/uL (0.0-0.8) 11/29/24 22:00 Baso # (Auto) 0.1 10^3/uL (0.0-0.1) 11/29/24 22:00 Nucleated RBC % (auto) 0 % 11/29/24 22:00 Nucleated RBCs # 0.0 /100WBC 11/29/24 22:00 D-Dimer 0.33 ug/mLFEU (0-0.59) 11/29/24 22:00 Sodium 140 mmol/L (136-145) 11/29/24 22:00 Potassium 3.6 mmol/L (3.5-5.1) 11/29/24 22:00 Chloride 101 mmol/L (98-107) 11/29/24 22:00 Carbon Dioxide 25 mmol/L (22-29) 11/29/24 22:00 Anion Gap 17.6 (5-19) 11/29/24 22:00 BUN 16 mg/dL (6-20) 11/29/24 22:00 Creatinine 0.9 mg/dL (0.5-0.9) 11/29/24 22:00 GFR Calculation 73.0 mL/min (90-130) L 11/29/24 22:00 Glucose 115 mg/dL (65-115) 11/29/24 22:00 Calculated Osmolality 292 mOsm/kg (285-295) 11/29/24 22:00 Calcium 9.0 mg/dL (8.5-10.5) 11/29/24 22:00 Total Bilirubin 0.2 mg/dL (0.15-1.2) 11/29/24 22:00 AST 9 U/L (0-32) 11/29/24 22:00 ALT 18 U/L (0-33) 11/29/24 22:00 Alkaline Phosphatase 87 U/L (35-105) 11/29/24 22:00 C-Reactive Protein 40.1 mg/L (0.0-4.9) H 11/29/24 22:00 Total Protein 7.4 g/dL (6.6-8.7) 11/29/24 22:00 Albumin 3.8 g/dL (3.5-5.2) 11/29/24 22:00 Globulin 3.6 g/dL (1.3-4.6) 11/29/24 22:00 Lipase 34 U/L (13-60) 11/29/24 22:00 HCG, Qual Negative (Negative) 11/29/24 22:00 Urine Color Yellow (Yellow) 11/30/24 01:18 Urine Appearance Cloudy (CLEAR) A 11/30/24 01:18 Urine pH 5.0 (5-7) 11/30/24 01:18 Ur Specific Orange 1.064 (1.005-1.030) H 11/30/24 01:18 Urine Protein 1+ (Negative) A 11/30/24 01:18 Urine Glucose (UA) Negative (Normal) 11/30/24 01:18 Urine Ketones Negative (Negative) 11/30/24 01:18 Urine Blood 2+ (Negative) A 11/30/24 01:18 Urine Nitrate Positive (Negative) A 11/30/24 01:18 Urine Bilirubin Negative (Negative) 11/30/24 01:18 Urine Urobilinogen 1.0 mg/dL (Negative) 11/30/24 01:18 Ur Leukocyte Esterase 2+ (Negative) A 11/30/24 01:18 Urine RBC 5-10 /hpf (0-2) H 11/30/24 01:18 Urine WBC >100 /hpf (0-5) H 11/30/24 01:18 Ur Squamous Epith Cells 11-20 /hpf (0-5) H 11/30/24 01:18 Calcium Oxalate Crystal 5-10 /hpf H 11/30/24 01:18 Amorphous Sediment Not Reportable 11/30/24 01:18 Urine Bacteria Many /hpf (NONE) 11/30/24 01:18 All radiology interpretation(s) finalized by discharge Discharge Plan Discharge Patient Disposition: Xfer Short-Term Hosp Clinical Impression: Pyelonephritis, Ureterolithiasis Condition: Stable Referrals: Kayden Kitchen MD [Primary Care Provider, [facility]] Print Language: Czech Coding Level of Care Code ED Funeral Arranger for Ankit Powers
--- NOTE | 2024-11-29 22:20 | CTR_ITS ---
PROCEDURE INFORMATION: Exam: CTA Chest With Contrast Exam date and time: 11/29/2024 10:52 PM Age: 29 years old Clinical indication: Other: N/a; Abdominal pain; Shortness of breath; Prior surgery; Surgery date: 6+ months; Surgery type: Hysterctomy. Csection; SOB with left flank pain and leukocytosis. ; Additional info: Left flank pain shortness of breath TECHNIQUE: Imaging protocol: Computed tomographic angiography of the chest with contrast. Exam focused on the arteries. 3D rendering (Not supervised by radiologist): MIP and/or 3D reconstructed images were created by the technologist. Radiation optimization: All CT scans at this facility use at least one of these dose optimization techniques: automated exposure control; mA and/or kV adjustment per patient size (includes targeted exams where dose is matched to clinical indication); or iterative reconstruction. Contrast material: OMNI 350; Contrast volume: 100 ml; Contrast route: INTRAVENOUS (IV); COMPARISON: CR XR shoulder LT min 2V* [id number] 02/29/2024 11:47 AM RADIATION DOSE METRICS: Total DLP (mGy-cm): 1670.38 FINDINGS: Pulmonary arteries: No pulmonary emboli. Aorta: Unremarkable. No aortic aneurysm. No aortic dissection. Lungs: Multiple pulmonary nodules in the inferior anterior aspect of the right upper lobe and superior anterior aspect of the right middle lobe measuring up to 7 mm. Juxtapleural 7 mm pulmonary nodule in the lingula (series 8, image 262). Pleural spaces: Unremarkable. No pneumothorax. No pleural effusion. Heart: Unremarkable. No cardiomegaly. No pericardial effusion. Lymph nodes: Prominent bilateral hilar lymph nodes. These may be reactive in nature. Bones/joints: Unremarkable. No acute fracture. Soft tissues: Unremarkable. then CT Chest at 18-24 months. (Reference: Elliot) References: Sisihoaaron H, et al. Guidelines for Management of Incidental Pulmonary Nodules Detected on CT Images: From the Fleischner Society 2017. Radiology. 2017;284(1):228-243. PROCEDURE INFORMATION: Exam: CT Abdomen And Pelvis With Contrast Exam date and time: 11/29/2024 10:52 PM Age: 29 years old Clinical indication: Other: N/a; Abdominal pain; Shortness of breath; Prior surgery; Surgery date: 6+ months; Surgery type: Hysterctomy. Csection; SOB with left flank pain and leukocytosis. ; Additional info: Left flank pain shortness of breath TECHNIQUE: Imaging protocol: Computed tomography of the abdomen and pelvis with contrast. Radiation optimization: All CT scans at this facility use at least one of these dose optimization techniques: automated exposure control; mA and/or kV adjustment per patient size (includes targeted exams where dose is matched to clinical indication); or iterative reconstruction. Contrast material: OMNI 350; Contrast volume: 100 ml; Contrast route: INTRAVENOUS (IV); COMPARISON: No relevant prior studies available. RADIATION DOSE METRICS: Total DLP (mGy-cm): 1670.38 FINDINGS: Lungs: There is a 5 mm pulmonary nodule in the distal left ureter with upstream hydroureter and mild hydronephrosis. Liver: Normal. No mass. Gallbladder and biliary ducts: Normal. No calcified stones. No ductal dilation. Pancreas: Normal. No ductal dilation. Spleen: Normal. No splenomegaly. Adrenal glands: Normal. No mass. Kidneys and ureters: Normal. No hydronephrosis. Stomach and bowel: Unremarkable. No obstruction. No mucosal thickening. Appendix: No evidence of appendicitis. Intraperitoneal space: Unremarkable. No free air. No significant fluid collection. Vasculature: Unremarkable. No abdominal aortic aneurysm. Lymph nodes: Unremarkable. No enlarged lymph nodes. Urinary bladder: Unremarkable as visualized. Reproductive: Unremarkable as visualized. Bones/joints: Unremarkable. No acute fracture. Soft tissues: Unremarkable. CT/CT angio chest w abd pel w con IMPRESSION: 1. No pulmonary emboli. 2. Prominent bilateral hilar lymph nodes. These may be reactive in nature. 3. Multiple pulmonary nodules in the inferior anterior aspect of the right upper lobe and superior anterior aspect of the right middle lobe measuring up to 7 mm. Juxtapleural 7 mm pulmonary nodule in the lingula (series 8, image 262). For patients at low risk (minimal or absent history of smoking and of other known risk factors), recommend CT Chest at 3-6 months, then consider CT Chest at 18-24 months. For patients at high risk (history of smoking or of other known risk factors), recommend CT Chest at 3-6 months, IMPRESSION: There is a 5 mm pulmonary nodule in the distal left ureter with upstream hydroureter and mild hydronephrosis. COMMENTS: Consistent with the [place] [employer]'s Incidental Findings Committee white paper (J Am Anne Radiol 2018): Any incidental renal lesion less than 1 cm or classified as too small to characterize, or any incidental cystic renal lesion characterized as simple-appearing, is likely benign. No follow-up imaging is recommended for these lesions per consensus recommendations based on imaging criteria.
[2024-11-29 22:21] LABS: Hematocrit 41.2 % (36-47); Hemoglobin 13.20 g/dL (11.27-16.99); Mean Corpuscular HGB Conc 32.0 g/dL (30-55); Mean Corpuscular Hemoglobin 26.5 pg (27-33); Mean Corpuscular Volume 82.6 fl (85-98); Nucleated Red Blood Cells % 0 %; Platelet Count 423 10^3/cmm (157-399); Red Blood Count 4.99 10^6/uL (3.85-5.65); White Blood Count 16.37 10^3/uL (3.29-11.43)
[2024-11-29] MEDS: ondansetron 2 mg/ML SDV 2 mL 4 MG IVP (22:25)
[2024-11-29] MEDS: morphine 4 mg/mL SDV 1 mL IVP (22:25)
[2024-11-29 22:33] VITALS: BP 154/81; PULSE 96; RESP 20; O2SAT 98
[2024-11-29] MEDS: iohexol 350 mg/mL 500 mL Btl (per mL) IV (22:54)
[2024-11-29 22:58] LABS: Alanine Aminotransferase 18 U/L (0-33); Albumin Level 3.8 g/dL (3.5-5.2); Alkaline Phosphatase 87 U/L (35-105); Anion Gap 17.6 (5-19); Aspartate Amino Transferase 9 U/L (0-32); Blood Urea Nitrogen 16 mg/dL (6-20); Calcium 9.0 mg/dL (8.5-10.5); Carbon Dioxide 25 mmol/L (22-29); Chloride 101 mmol/L (98-107); Creatinine Clr Calc Pharmacy 112.9163; Globulin 3.6 g/dL (1.3-4.6); Glucose 115 mg/dL (65-115); Lipase 34 U/L (13-60); Osmolality Calculated 292 mOsm/kg (285-295); Potassium 3.6 mmol/L (3.5-5.1); Sodium 140 mmol/L (136-145); Total Protein 7.4 g/dL (6.6-8.7)
[2024-11-29 22:59] LABS: HCG, Serum Qual Negative (Negative)
[2024-11-29 23:53] VITALS: BP 117/84; PULSE 89; RESP 16; O2SAT 94
[2024-11-30] VITALS: BP 130/100; PULSE 86; RESP 16; O2SAT 100
[2024-11-30 00:48] VITALS: PULSE 89; RESP 14; O2SAT 97
[2024-11-30 01:24] LABS: Glucose Urine UA Negative (Normal); Nitrate Urine Positive (Negative)
[2024-11-30 01:35] LABS: Specific Gravity, Urine 1.064 (1.005-1.030)
[2024-11-30 01:37] LABS: UA Manual Slide Review YES; UA Slide Review UA Slide Review Perf
[2024-11-30 01:38] LABS: Add Urine Microscopic? YES; Universal Test for UA Present (0)
[2024-11-30 02:29] VITALS: RESP 18; O2SAT 94
[2024-11-30] MEDS: morphine 4 mg/mL SDV 1 mL IVP (02:29)
[2024-11-30 02:30] VITALS: BP 133/78; PULSE 112; RESP 18; O2SAT 95
[2024-11-30] MEDS: ondansetron 2 mg/ML SDV 2 mL 4 MG IVP (02:30)
[2024-11-30 02:35] VITALS: TEMP 38.8
[2024-11-30] MEDS: cefTRIAXone 1,000 mg SDV 1000 MG IVP (02:36)
--- NOTE | 2024-11-30 03:03 | PC.NURSE ---
report called to Ariadna Benedict Rn @ [facility] [place] . pt awaiting transfer.
[2024-11-30 04:00] VITALS: BP 112/78; PULSE 105; RESP 18; TEMP 37.8; O2SAT 95
--- NOTE | 2024-11-30 15:17 | PC.NURSE ---
LAB NOTIFIED ED STAFF OF CRITICAL BLOOD CULTURE RESULT. THIS NURSE NOTIFIED [facility] [place] OF LAB VALUE SINCE PT HAD BEEN TRANSFERRED.
== END 2024-11-30 04:15 | disposition short-term general hospital (02) ==
PROVIDERS: Emergency Provider Emergency Medicine; PCP Family Medicine
DX: R10.32 Left lower quadrant pain (principal); N20.1 Calculus of ureter
CPT/HCPCS: 36415; 71275; 74177; 80053; 81001; 83690; 84703; 85025; 85378; 86140; 87040; 87077; 87086; 87150; 87186; 87205; 96374; 96375; 96376; 99285; J0696; J1885; J2270; J2405; J7030; J9999

== ENCOUNTER → 2024-12-25 11:08 | Outpatient (BNVA) | payer MEDICAID, SELFPAY | PROVIDERS: PCP Family Medicine | DX: R39.9 Unspecified symptoms and signs involving the genitourinary system (principal) | CPT/HCPCS: 81000 ==

== ENCOUNTER 2024-12-30 08:24 | Emergency (ER) | payer SELFPAY ==
--- OUTSIDE RECORDS SUMMARY | 2024-12-30 08:38 | XMS_ITS | Patient Health Record ---
Author Organization [facility] Address [address] [place] [address] Care Team Providers Care Fish Inspector Name Role Phone Fidelina NICOLE, Kayden Primary Care Provider Unavailab Vee Ortega Unavailable Nj Pereyra Unavailable [phone] Allergies Allergen (clinical drug ingredient) Drug/Non Drug Allergy documented on EMR Reaction Allergy Type Onset Date Status duloxetine DULoxetine Unknown Drug Allergy Activ e Results Component Value Reference Range Notes UA Without [place], [place] - [id number] Reviewed date:12/10/2024 01:17:41 PM Interpretation: Performing Lab: Notes/Report: Glucose 0 Bili 1+ Ketones 0 Sp [place] 1.025 Blood 3+ pH 6.0 Protein 1+ Urobili 0 Nitrites 0 Leukocytes 1+ Culture Urine [id number] Reviewed date:12/12/2024 07:51:41 AM Interpretation: Performing Lab: Notes/Report: Culture Urine SHERYL Waite Culture Urine t: Culture Urine Culture Urine [facility] [id number] Culture Urine n: Culture Urine Microbiology Culture Urine PROCEDURE: Culture U rine [O1] Culture Urine SOURCE: Urine BODY SITE: Culture Urine COLLECTED DATE/TIME: 12/10/2024 13:38 CDT RECEIVED DATE/TIME: 12/10/2024 18:05 CDT Culture Urine START DATE/TIME: 11/16 18:06 CDT FREE TEXT SOURCE: Culture Urine FINAL REPORT Culture Urine Final Report [] Culture Urine Verified Date/Time: 12/12/2024 06:51 CDT Culture Urine <10,000 cfu/ml Mixed Superficial Maribel Culture Urine Order Comments Culture Urine O1: Culture Urine (Mary delgado Urine [id number]) Culture Urine Diagnosis Descriptio n: Unspecified abnormal findings in urine Reason For Referral No Information Medications Medication SIG (Take, Route, Frequency, Duration) Notes Start Date End Date Status Ondansetron 4 MG Tablet Disintegrating 1 tablet on the tongue and allow to dissolve Orally EVERY 6 HOURS; Duration: 30 days As needed 12/10/2024 Active ARIPiprazole 5 MG Tablet TAKE 1 TABLET B Y MOUTH ONCE DAILY Oral; Duration: 30 Days Active Sertraline HCl 100 MG Tablet TAKE 2 TABL ETS BY MOUTH ONCE DAILY Oral; Duration: 30 Days Active buPROPion HCl ER (XL) 300 MG Tablet Extended Release 24 Hour TAKE 1 TABLET BY MOUTH IN THE MORNING Oral; Duration: 30 Days Active Omeprazole 10 MG Capsule Delayed Release 1 capsule 1/2 to 1 hour before morning meal Orally Once a day; Duration: 30 day(s) 12/10/2024 Active Social History Tobacco Use: Social History Observation Description Date Details (start date - stop date) Never Smoker NA - NA Social History Tobacco Use: Social Info Question Answer Notes Tobacco Control (Standard) Tobacco use: Nonsmoker Section Notes: caffeine- pos alcohol- on occassion Problems Problem Type SNOMED Code ICD Code Onset Dates Problem Status W/U Status Risk Notes Problem Ureteral stent present (Z96.0) Active confirmed Vital Signs Heart Rate 84 /min 12/10/2024 Temperature 97.8 degrees Fahrenheit 12/10/2024 Blood pressure diastolic 73 mm Hg 12/10/2024 Weight-kg 124.47 kg 12/10/2024 Blood pressure systolic 117 mm Hg 12/10/2024 Weight 274.4 lbs 12/10/2024 Encounters Encounter Location Date Provider Diagnosis [facility] [address] [place] [address] Dr Tyler [address] [place] [address], [place] [address] 12/10/2024 Vee Shankar Calculus of ureter N20.1 ; Ureteral stent present Z96.0 ; Pyonephrosis N13.6 ; Nausea R11.0 and Unspecified abnormal findings in urine R82.90 [facility] [address] [place] [address] Dr Tyler [address] [place] [address], [place] [address] 12/09/2024 Nj Pereyra [facility] [address] [place] [address] Dr Tyler [address] [place] [address], [place] [address] 12/10/2024 Vee BernalXie [facility] [address] [place] [address] 12/10/2024 Nj Pereyra [facility] [address] [place] [address] 12/10/2024 Vee BernalXie [facility] [address] [place] [address] 12/18/2024 Nj Pereyra [facility] [address] [place] [address] 12/23/2024 Nj Pereyra Assessments Encounter Date Diagnosis (ICD Code) Assessment Notes Treatment Notes Treatment Clinical Notes Section Notes 12/10/2024 Calculus of ureter (ICD-10 - N20.1) 12/10/2024 Ureteral stent present (ICD-10 - Z96.0) 12/10/2024 Pyonephrosis (ICD-10 - N13.6) 12/10/2024 Nausea (ICD-10 - R11.0) 12/10/2024 Unspecified abnormal findings in urine (ICD-10 - R82.90) 12/10/2024 Other CULTURE URINE NAUSEA MEDICATION SENT TO PHARMACY - ONDANSETRON 4 MG TO TAKE EVERY 6 HOURS PATIENT TO FINISH HER BACTRIM PRESCRIPTION PATIENT TO BE SCHEDULED FOR LEFT STONE MANIPULATION AND LEFT STENT REMOVAL VS. EXCHANGE FOLLOW UP AFTER PROCEDURE Plan Of Treatment Next Appt Details Provider Name:Nj sims, 01/22/2025 10:40:00 AM, [address] , [place] [address], [place], [address], Insurance Providers Payer Name Payer Address Payer Phone Subscriber Number Group Number Insured Name Patient Relationship to Insured Coverage Start Date Coverage End Date [facility] Medicaid Replacement [address] [address] [place] [phone] [id number] Sheryl Arevalo Self - patient is the insured Medical (General) History Surgical History Surgery Date(Month/Year) c section pulmonary embolism partial hysterectomy
--- OUTSIDE RECORDS SUMMARY | 2024-12-30 08:38 | XMS_ITS | Clinical Summary ---
Author Organization [facility] Address [address] [facility] Attn: Epic Prelude ADT DONG JAIME [address] Care Team Providers Care Fisher Seal Name Role Phone Belem Harper Primary Care [...] Encounters Date Type Department Care Team Description 12/17/2024 External Device Data [facility] ABSTRACTION Provider, Abstract 11/05/2024 External Device Data [facility] ABSTRACTION Provider, Abstract 11/05/2024 External Device Data [facility] ABSTRACTION Provider, Abstract 11/05/2024 External Device Data [facility] ABSTRACTION Provider, Abstract 10/30/2024 External Device Data [facility] ABSTRACTION Provider, Abstract 10/29/2024 External Device Data [facility] ABSTRACTION Provider, Abstract 10/08/2024 External Device Data [facility] ABSTRACTION Provider, Abstract 10/03/2024 Telephone [place] [address] [place] [id number] Ramakrishna Orta MD Bariatrics 10/01/2024 External Device [...] drink = 0.6 oz pur e alcohol) Feeling Safe Answer Date Recorded Are you in a relationship wi th someone who hurts you emotionally and/or physically? No 04/08/2024 Comments No Sex and Gender Information Value Date Recorded Sex Assigned at Not on file Legal Sex Female 11:43 AM DELINEATOR Gender Identity Not on file Sexual Orientation Not on file Last Filed Vital Signs Vital Sign Reading Time Taken Comments Blood Pressure 117/72 04/08/2024 12:00 PM DELINEATOR Pulse 70 04/08/2024 12:00 PM DELINEATOR Temperature 36.7 C (98 F) 04/08/2024 10:22 AM DELINEATOR Respiratory Rate 16 04/08/2024 12:00 PM DELINEATOR Oxygen Saturation 97% 04/08/2024 12:00 PM DELINEATOR Inhaled Oxygen Concentration - - Weight 122 kg (269 lb) 04/08/2024 10:22 AM DELINEATOR Height 154.9 cm (5' 1 ) 04/08/2024 10:22 AM DELINEATOR Body Mass Index 50.83 04/08/2024 10:22 AM DELINEATOR Plan of Treatment Health Maintenance Due Date Last Done Comments HPV VACCINES (2 - 3-dose series) 07/23/2010 06/26/19 11 DTAP/TDAP/TD VACCINES (1 - Tdap) 2012 HEPATITIS B VACCINES (1 of 3 - 19+ 3-dose series) 04/2012 INFLUENZA VACCINE (#1) 2024 Insurance [employer] Care Teams Fisher Seal Relationship Specialty Start Date End Date Belem Harper DO [address] [place] [address] PCP - General Family Practice 06/07/10
[2024-12-30 08:39] VITALS: BP 124/84; PULSE 88; RESP 16; TEMP 36.8; O2SAT 98; BMI 52.0
[2024-12-30 09:12] LABS: Hematocrit 40.3 % (36-47); Hemoglobin 12.70 g/dL (11.27-16.99); Mean Corpuscular HGB Conc 31.5 g/dL (30-55); Mean Corpuscular Hemoglobin 25.8 pg (27-33); Mean Corpuscular Volume 81.9 fl (85-98); Nucleated Red Blood Cells % 0 %; Platelet Count 338 10^3/cmm (157-399); Red Blood Count 4.92 10^6/uL (3.85-5.65); White Blood Count 10.64 10^3/uL (3.29-11.43)
--- NOTE | 2024-12-30 09:16 | CT_ITS ---
WS: [id number] CT ABDOMEN AND PELVIS NONCONTRAST HISTORY: left back/flank pain TECHNIQUE: Imaging performed through the abdomen and pelvis. Coronal and sagittal reformats are submitted. All CT scans at [facility] use at least one of these dose optimization techniques: automated exposure control; mA and/or kV adjustment per patient size (includes targeted exams where dose is matched to clinical indication); or iterative reconstruction. DLP: 1201.20 mGy.cm COMPARISON: 11/29/2024 Lower thorax: 3 mm nodule at the RIGHT lung base. 4 mm nodule in the lingula. These nodules are better visualized on today's examination than on the prior examination. Heart size normal. No hiatal hernia. Liver: Mildly enlarged liver with hepatic steatosis. Gallbladder: Normal gallbladder. No pericholecystic fluid or cholelithiasis. No gallbladder wall thickening. Pancreas: Normal size and attenuation. Normal pancreatic duct. No pancreatitis or mass. Spleen: Normal. Adrenal glands: Normal. No mass. Right kidney: Normal size kidney with no mass or hydronephrosis. Left kidney: Since the prior examination double-pigtail LEFT ureteral stent has been placed. Previously described hydronephrosis and hydroureter have improved. There is very slight persistent dilatation of the renal pelvis. There is mild thickening of the LEFT ureter uroepithelium. Distal ureteral stone is not definitely identified. The proximal pigtail is coiled in the upper pole. Distal pigtail is coiled appropriately in the urinary bladder. Aorta: Mild atherosclerosis abdominal aorta with no aneurysm. No free fluid, intraperitoneal air or significant lymphadenopathy. GI tract: No GI tract obstruction. No colitis. No pericolonic wall thickening. Normal appendix. Abdominal wall: Small umbilical hernia contains fat only. Pelvis: Minimally distended urinary bladder. Osseous structures: Unremarkable. CT/CT kidney stone [id number] IMPRESSION: 1. Double-pigtail LEFT ureteral stent has been placed since 11/29/2024. Proxima l pigtail is coiled in the superior renal pelvis. 2. Nearly completely resolved LEFT hydroureteronephrosis. Very slight dilatati on persisting of the renal pelvis. 3. Previously described distal LEFT ureteral calcification is not identified. 4. No free fluid or free air. 5. No colitis. 6. No significant perinephric stranding surrounding either kidney. There is st ill very slight wall thickening of the LEFT ureter.
--- NOTE | 2024-12-30 09:22 | ED_ITS ---
Documented by User: JUAN PABLO Ballard 12/30/24 10:26 HPI - Abdominal Pain 2 General: Chief Complaint: Abdominal Pain Stated Complaint: Vaisler sent, blood in urine, abd pain Time Seen by Provider: 12/30/24 09:11 Source: patient Mode of arrival: ambulatory Limitations: no limitations History of Present Illness: Patient is a 29-year-old female with past medical history of morbid obesity, frequent urinary tract infection, and recent ureterolithiasis who presents to the emergency department referred by primary care's office due to her recent history. Patient states a few weeks ago, in [facility] with Dr. Pereyra, says that she had a kidney stone that was obstructing the ureter, and had a stent placed above this ureter and says that they did not remove the stone due to her coinciding urinary tract infection. Overall she is poor historian and providing this history, we will attempt to retrieve records from [facility]. She is sent over for blood in her urine, lower abdominal pain, left flank and left lower back pain, and abdominal distention. States that she has been on multiple rounds of antibiotics and is currently on Levaquin. She reports chills at home, no documented fever. She does feel nauseous but no vomiting. She is not on any blood thinner. The pain is noted to be spasmic and while currently controlled states it will intermittently become much more severe. Her vitals are stable at this time. Overall nontoxic-appearing. MD elicited complaint: abdominal pain and flank pain Pertinent past history: kidney stones Onset (ago): week(s) Pain Consistency: constant Location: L flank Severity: similar to previous episodes Quality: other (Spasm) Radiation: LLQ Exacerbating factors: nothing Relieving factors: nothing Context: recent antibiotic use, recent surgery/procedure (Ureteral stent) and history of similar episodes Associated Symptoms: Reports bloating, chills and nausea; Denies change in stool character, constipation, diarrhea, dysuria, fever(s), hematochezia and vomiting Related Data Previous Rx's ?Medication ?Instructions ?Recorded omeprazole 40 mg capsule,delayed 40 mg PO DAILY #90 ca ps 11/27/23 release fluticasone propionate 50 See Rx Instructions .Route 0 12/04/23 mcg/actuation nasal .COMPLEX #16 grams spray,suspension albuterol sulfate 90 mcg/actuation 2 puff inhalation Q 6H PRN 07/14/25 aerosol inhaler shortness of breath or wheez ing #8.5 grams ibuprofen 800 mg tablet 800 mg PO Q8H PRN pain #30 t abs 11/22/24 methocarbamol 750 mg tablet 750 mg PO TID #30 tabs 12/09 prednisone 20 mg tablet 60 mg (3 x 20 mg) PO DAILY 5 days 11/22/24 #15 tabs methocarbamol 500 mg tablet 500 mg PO Q8H PRN muscle s pasm #30 11/25/24 tabs methylprednisolone 4 mg tablets in See Rx Instructions PO .COMPLEX 11/25/24 a dose pack (Medrol (Lavon)) #21 ea aripiprazole 5 mg tablet 5 mg PO DAILY #30 tabs 11/29 bupropion HCl 300 mg 24 hr tablet, 300 mg PO QAM #30 t abs 11/29/24 extended release (Wellbutrin XL) sertraline 100 mg tablet 200 mg (2 x 100 mg) PO DAILY #60 11/29/24 tabs trazodone 50 mg tablet 100 mg (2 x 50 mg) PO .HS TN N 11/29/24 insomnia #60 tabs levofloxacin 750 mg tablet 750 mg PO DAILY 5 days #5 t abs 12/25/24 hydrocodone 7.5 mg-acetaminophen 1 tab PO Q8H PRN pain #14 tabs 12/30/24 325 mg tablet ondansetron 4 mg disintegrating 4 mg PO TID PRN nausea and 12/30/24 tablet vomiting #30 tabs Allergies Allergy/AdvReac Type Severity Reaction Status Date / Time duloxetine Allergy sedation Verified 12/25/24 11:00 Review of Systems 2 General: Reports: 10 or more systems reviewed and unremarkable except in HPI and below Const: Reports: chills; Denies: fever(s), change in appetite, change in weight or diaphoresis ENMT: Denies: throat pain or hoarseness Card: Denies: chest pain, palpitations or lightheadedness Resp: Denies: dyspnea, productive cough or wheezing GI: Reports: abdominal pain, nausea and bloating; Denies: vomiting, diarrhea, constipation, change in stool character or hematochezia : Reports: flank pain; Denies: difficulty voiding, dysuria, urinary frequency or urinary urgency Musc: Reports: back pain; Denies: neck pain Skin/Breast: Denies: rash or new lesions Neuro: Denies: headache(s) or dizziness PFSH ED 2 PFSH: Medical History Psychiatric care Adult BMI 50.0-59.9 kg/sq m Headache Urinary tract infection Nasal congestion Otitis media Encounter for screening for cardiovascular disorders Medication management Obesity COVID-19 Pulmonary embolism Migraine Depression Surgical History History of hysterectomy only 1 ovary History of Family History Other Psychiatric illness Denies family history of Diabetes CAD (coronary artery disease) Chronic kidney disease (CKD) Lung disease Cancer Hypertension Stroke Social History Smoking and tobacco/nicotine status: never used tobacco/nicotine Alcohol intake: never Substance/Drug Use: never Household members: spouse and children Marital status: Number of children: 3 Current gender identity: Female Physical Exam 2 Const: COMMON NORMALS: no acute distress, patient oriented x3, alert and well nourished GENERAL APPEARANCE: cooperative NUTRITIONAL APPEARANCE: obese morbidly obese ORIENTATION/CONSCIOUSNESS: Yes awake OTHER: nontoxic Neck/C-Spine: COMMON NORMALS: full ROM, supple, no meningeal signs and no JVD Resp: COMMON NORMALS: normal respiratory effort, No retractions, No use of accessory muscles and clear to auscultation bilaterally AUSCULTATION: clear to auscultation bilaterally, no crackles, no rales, no rhonchi and no wheezes Cardio: COMMON NORMALS: no JVD, regular rate, regular rhythm, No gallops present (Cardio), No clicks present (Cardio), No murmurs present (Cardio) and No rub (Cardio) RATE: regular rate RHYTHM: regular rhythm GI: COMMON NORMALS: Soft to palpation, No hepatosplenomegaly present and no masses INSPECTION: Yes central obesity AUSCULTATION: Yes normoactive bowel sounds PALPATION: Yes Soft to palpation, Yes Tenderness to palpation present (GI) Details: LLQ and LUQ, No Guarding due to palpation present (GI), No Rigid due to palpation and Yes No hepatosplenomegaly present RECTAL EXAM: deferred : BLADDER/KIDNEY EXAM: Yes CVA tenderness on the left Back/Pelvis: GENERAL BACK: Yes CVA tenderness Extremity: COMMON NORMALS: normal to inspection and full ROM Neuro: COMMON NORMALS: patient oriented x3, moves all extremities, no focal motor deficits and no sensory deficits noted SENSORIUM/ORIENTATION: Yes alert MENINGEAL SIGNS: Yes no meningeal signs Psych: COMMON NORMALS: mental status grossly normal, cooperative and speech normal SPEECH: Yes normal speech Skin: COMMON NORMALS: no rashes or lesions noted GENERAL SKIN EXAM: no rashes or lesions noted Course 2 Vital Signs: Vital signs: Vital Signs Temperature 98.2 F 12/30/24 08:39 Pulse Rate 88 12/30/24 08:39 Respiratory Rate 17 12/30/24 10:10 Blood Pressure 124/84 12/30/24 08:39 Pulse Oximetry 98 12/30/24 10:10 Oxygen Delivery Me thod Room Air 12/30/24 08:39 MDM - Abdominal Pain Medical Decision Making Patient presented with left flank pain with urinary symptoms, history concerning for recent stent placement in the left ureter for obstructed and infected stone. She sees Dr. Pereyra in [place] for urology. Nontoxic-appearing on exam, but tender to palpation to the left lower abdomen as well as to the left flank/CVA. Vitals have been stable. No leukocytosis on CBC, and kidney function is normal with her metabolic panel. Urinalysis is not grossly infected, and CT renal shows quite a bit of improvement or resolution of her hydroureteralnephrosis and apparent resolution of ureteral stone. For this there is no acute/emergent reason to transfer her or admit her to higher level of care, pain thought likely to be benign such as ureteral stent associated pain such as ureteral colic, or general musculoskeletal pain. Her symptoms have been controlled here in the emergency department, and while she is stable for discharge home she is given strict return precautions to the ED and informed to call urology and schedule an appointment with them later this week for reevaluation. Lab Data 12/30/24 09:06 12/30/24 09:06 Labs/Radiology: Radiology Impressions Abdomen/Pelvis CT 12/30/24 09:16 IMPRESSION: 1. Double-pigtail LEFT ureteral stent has been placed since 11/29/2024. Proximal pigtail is coiled in the superior renal pelvis. 2. Nearly completely resolved LEFT hydroureteronephrosis. Very slight dilatation persisting of the renal pelvis. 3. Previously described distal LEFT ureteral calcification is not identified. 4. No free fluid or free air. 5. No colitis. 6. No significant perinephric stranding surrounding either kidney. There is still very slight wall thickening of the LEFT ureter. Laboratory Results WBC 10.64 10^3/uL (3.29-11.43) 12/30/24 09:06 RBC 4.92 10^6/uL (3.85-5.65) 12/30/24 09:06 Hgb 12.70 g/dL (11.27-16.99) 12/30/24 09:06 Hct 40.3 % (36-47) 12/30/24 09:06 MCV 81.9 fl (85-98) L 12/30/24 09:06 MCH 25.8 pg (27-33) L 12/30/24 09:06 MCHC 31.5 g/dL (30-55) 12/30/24 09:06 RDW 16.2 % (12.1-15.1) H 12/30/24 09:06 Plt Count 338 10^3/cmm (157-399) 12/30/24 09:06 MPV 8.7 fL (7.4-10.4) 12/30/24 09:06 Neut % (Auto) 72.3 % 12/30/24 09:06 Lymph % (Auto) 18.0 % 12/30/24 09:06 White % (Auto) 5.2 % 12/30/24 09:06 Eos % (Auto) 3.4 % 12/30/24 09:06 Baso % (Auto) 0.7 % 12/30/24 09:06 Neut # (Auto) 7.71 10^3/uL (1.8-7.7) H 12/30/24 09:06 Lymph # (Auto) 1.9 10^3/uL (0.8-4.8) 12/30/24 09:06 White # (Auto) 0.6 10^3/uL (0.2-0.9) 12/30/24 09:06 Eos # (Auto) 0.4 10^3/uL (0.0-0.8) 12/30/24 09:06 Baso # (Auto) 0.1 10^3/uL (0.0-0.1) 12/30/24 09:06 Nucleated RBC % (auto) 0 % 12/30/24 09:06 Nucleated RBCs # 0.0 /100WBC 12/30/24 09:06 Sodium 141 mmol/L (136-145) 12/30/24 09:06 Potassium 4.0 mmol/L (3.5-5.1) 12/30/24 09:06 Chloride 103 mmol/L (98-107) 12/30/24 09:06 Carbon Dioxide 25 mmol/L (22-29) 12/30/24 09:06 Anion Gap 17.0 (5-19) 12/30/24 09:06 BUN 15 mg/dL (6-20) 12/30/24 09:06 Creatinine 0.7 mg/dL (0.5-0.9) 12/30/24 09:06 GFR Calculation 97.6 mL/min (90-130) 12/30/24 09:06 Glucose 92 mg/dL (65-115) 12/30/24 09:06 Calculated Osmolality 292 mOsm/kg (285-295) 12/30/24 09:06 Calcium 9.0 mg/dL (8.5-10.5) 12/30/24 09:06 Total Bilirubin 0.2 mg/dL (0.15-1.2) 12/30/24 09:06 AST 11 U/L (0-32) 12/30/24 09:06 ALT 16 U/L (0-33) 12/30/24 09:06 Alkaline Phosphatase 79 U/L (35-105) 12/30/24 09:06 Total Protein 7.5 g/dL (6.6-8.7) 12/30/24 09:06 Albumin 3.7 g/dL (3.5-5.2) 12/30/24 09:06 Globulin 3.8 g/dL (1.3-4.6) 12/30/24 09:06 HCG, Qual Negative (Negative) 12/30/24 09:06 Urine Color Yellow (Yellow) 12/30/24 09:16 Urine Appearance Clear (CLEAR) 12/30/24 09:16 Urine pH 7.0 (5-7) 12/30/24 09:16 Ur Specific [place] 1.011 (1.005-1.030) 12/30/24 09:16 Urine Protein Trace (Negative) A 12/30/24 09:16 Urine Glucose (UA) Negative (Normal) 12/30/24 09:16 Urine Ketones Negative (Negative) 12/30/24 09:16 Urine Blood 1+ (Negative) A 12/30/24 09:16 Urine Nitrate Negative (Negative) 12/30/24 09:16 Urine Bilirubin Negative (Negative) 12/30/24 09:16 Urine Urobilinogen 0.2 mg/dL (Negative) 12/30/24 09:16 Ur Leukocyte Esterase 1+ (Negative) A 12/30/24 09:16 Urine RBC 6-10 /hpf (0-2) 12/30/24 09:16 Urine WBC 6-10 /hpf (0-5) 12/30/24 09:16 Ur Squamous Epith Cells 0-5 /hpf (0-5) 12/30/24 09:16 Amorphous Sediment Not Reportable 12/30/24 09:16 Urine Bacteria None seen /hpf (NONE) 12/30/24 09:16 Hyaline Casts 0.40 /lpf 12/30/24 09:16 All radiology interpretation(s) finalized by discharge Discharge Plan Discharge Patient Disposition: Home Clinical Impression: Colic, ureteral Condition: Stable Prescriptions: New hydrocodone-acetaminophen 7.5-325 mg tablet 1 tab PO Q8H PRN (Reason: pain) Qty: 14 0RF ondansetron 4 mg tablet,disintegrating 4 mg PO TID PRN (Reason: nausea and vomiting) Qty: 30 0RF No Action aripiprazole 5 mg tablet 5 mg PO DAILY Qty: 30 2RF sertraline 100 mg tablet 200 mg PO DAILY Qty: 60 2RF trazodone 50 mg tablet 100 mg PO .HS PRN (Reason: insomnia) Qty: 60 2RF bupropion HCl [Wellbutrin XL] 300 mg tablet extended release 24 hr 300 mg PO QAM Qty: 30 2RF levofloxacin 750 mg tablet 750 mg PO DAILY 5 Days Qty: 5 0RF ibuprofen 800 mg tablet 800 mg PO Q8H PRN (Reason: pain) Qty: 30 0RF prednisone 20 mg tablet 60 mg PO DAILY 5 Days Qty: 15 0RF methocarbamol 750 mg tablet 750 mg PO TID Qty: 30 0RF omeprazole 40 mg capsule,delayed release(DR/EC) 40 mg PO DAILY Qty: 90 3RF fluticasone propionate 50 mcg/actuation spray,suspension See Rx Instructions .ROUTE .COMPLEX Qty: 16 1RF Dose Instruction: ADMINISTER 1 SPRAY INTO EACH NOSTRIL TWICE DAILY NEEDED FOR NASAL CONGESTION Rx Instructions: ADMINISTER 1 SPRAY INTO EACH NOSTRIL TWICE DAILY NEEDED FOR NASAL CONGESTION albuterol sulfate 90 mcg/actuation HFA aerosol inhaler 2 puff inhalation Q6H PRN (Reason: shortness of breath or wheezing) Qty: 8.5 0RF methocarbamol 500 mg tablet 500 mg PO Q8H PRN (Reason: muscle spasm) Qty: 30 0RF methylprednisolone [Medrol (Lavon)] 4 mg tablets,dose pack See Rx Instructions .ROUTE .COMPLEX Qty: 21 0RF Rx Instructions: for 6 days Discharge Orders: Discharge ED (Routine); Ordered 12/30/24 Ordered By: Tre Barney Referrals: Kayden Kitchen MD [Primary Care Provider, Family Practice] Patient Instructions: Patient Portal & Mary Instructions Activity Restrictions/Additional Instructions: Ureteral Stent Discharge Instructions Discharge Instructions: 29-year-old Female with Ureteral Stent Diagnosis/Context: - Left flank pain and urinary symptoms following recent ureteral stent placement for obstructing stone and infected stone. - Imaging shows improvement of prior urinary tract infection; urinalysis is negative for acute infection. - Stent remains in place. Benign Causes of Pain: - Ureteral stent-associated pain is common and typically benign, resulting from mucosal irritation, bladder wall contact, and mechanical friction of the stent within the urinary tract.[1] https://pubmed.ncbi.nlm.nih.gov/48575153 [2] https://pubmed.ncbi.nlm.nih.gov/31225288 - Flank pain, suprapubic discomfort, urinary urgency, and frequency are frequently reported and are not necessarily indicative of infection or obstruction.[1] https://pubmed.ncbi.nlm.nih.gov/43778361 [2] https://pubmed.ncbi.nlm.nih.gov/27632707 [3] https:/ /pubmed.ncbi.nlm.nih.gov/30990893 - Pain intensity is often highest in the first few days post-procedure and may persist, but typically improves after stent removal.[2] https://pubmed.ncbi.nlm.nih.gov/78148397 [3] https://pubmed.ncbi.nlm.nih.gov/46158483 [4] https:/ /pubmed.ncbi.nlm.nih.gov/28988576 - Patient factors such as younger age and female sex are associated with increased pain and urinary symptoms.[2] https://pubmed.ncbi.nlm.nih.gov/04578955 [5] https://pubmed.ncbi.nlm.nih.gov/38222481 Pain Management: - Non-opioid analgesics (e.g., NSAIDs) are first-line for stent-related pain when not contraindicated. [6] https://pubmed.ncbi.nlm.nih.gov/85651407 - Hydrocodone is prescribed for breakthrough pain, recognizing that opioid use for stent pain is less common than for stone pain, but may be necessary in younger patients or those with significant discomfort.[7] https://pubmed.ncbi.nlm.nih.gov/33141530 [6] https://pubmed.ncbi.nlm.nih.gov/90461677 - Consideration of adjunctive therapies (e.g., alpha-blockers, anticholinergics) may be appropriate for persistent stent-related symptoms, but are not routinely initiated at discharge unless symptoms are severe.[1] https://pubmed.ncbi.nlm.nih.gov/01406441 [8] https://pubmed.ncbi.nlm.nih.gov/38159749 [9] https:/ /pubmed.ncbi.nlm.nih.gov/74055163 [10] https://pubmed.ncbi.nlm.nih.gov/50938040 [11] https://pubmed.ncbi.nlm.nih.gov/62970109 Nausea Management: - Ondansetron (Zofran) is prescribed for nausea. Standard adult dosing is 8 mg orally every 8 hours as needed, with dose adjustment in severe hepatic impairment.[12] https://dailymed.nlm.nih.gov/dailymed/drugInfo.cfm?tkwkv=[email or web address]-s99c -[email or web address] Signs/Symptoms Requiring Immediate Attention: - Fever, chills, worsening flank pain, gross hematuria, inability to urinate, or signs of urinary tract infection (dysuria, urgency, frequency with fever) should prompt immediate evaluation.[13] https://pubmed.ncbi.nlm.nih.gov/73717899 [14] https://pubmed.ncbi.nlm.nih.gov/43321814 [15] http s://pubmed.ncbi.nlm.nih.gov/19841029 Follow-Up: - Close follow-up with urology is essential to monitor for stent-related complications, assess for stone clearance, and determine timing of stent removal.[16] https://pubmed.ncbi.nlm.nih.gov/74952511 [15] https://pubmed.ncbi.nlm.nih.gov/75962788 [4] https ://pubmed.ncbi.nlm.nih.gov/36519881 - Stent removal is typically planned after infection resolution and definitive stone management, as prolonged indwelling time does not confer additional benefit in infection control.[16] https://pubmed.ncbi.nlm.nih.gov/47489229 [4] https://pubmed.ncbi.nlm.nih.gov/35387564 Patient Education: - Stent-related symptoms are common and usually benign. - Pain and urinary symptoms often improve after stent removal. - Adherence to prescribed medications and follow-up is important for optimal recovery.[9] https://pubmed.ncbi.nlm.nih.gov/32893616 Medications Prescribed: - Hydrocodone: For breakthrough pain, use as directed. - Ondansetron (Zofran): 8 mg orally every 8 hours as needed for nausea.[12] https://dailymed.nlm.nih.gov/dailymed/drugInfo.cfm?bqgqj=[email or web address]-q95t -[email or web address] Contact Information: - For urgent symptoms, contact the urology clinic or present to the emergency department. Summary: This patient is being discharged with a ureteral stent in place, improved infection, and no evidence of acute urinary tract infection. Pain and urinary symptoms are most likely benign and stent-related. Hydrocodone and ondansetron are prescribed for symptom control. Urology follow-up is required for ongoing management and stent removal planning.[1] https://pubmed.ncbi.nlm.nih.gov/13815738 [2] https://pubmed.ncbi.nlm.nih.gov/60775754 [7] https:/ /pubmed.ncbi.nlm.nih.gov/46087480 [6] https://pubmed.ncbi.nlm.nih.gov/11219932 [16] https://pubmed.ncbi.nlm.nih.gov/30777497 [12] https://dailymed.nlm.nih.gov/dailymed/drugInfo.cfm?wdzos=44amk502-nzd7 -41y7-y23d-750n16j4140u [15] https://pubmed.ncbi.nlm.nih.gov/92913448 [4] https://pubmed.ncbi.nlm.nih.gov/33856005 References * Ureteral Stent-Associated Pain: A Review https://pubmed.ncbi.nlm.nih.gov/21803826 . Gene C, Shana C, Chetna PK, Allison SE. Journal of Endourology. 2016;30(7):744-53. doi:10.1089/end.2016.0129. * Risk Factors for Increased Stent-Associated Symptoms Following Ureteroscopy for Urinary Stones: Results From STENTS https://pubmed.ncbi.nlm.nih.gov/18408530 . Luzma Al JD, Terrence BURKS, et al. The Journal of Urology. 2022;209(5):971-980. doi:10.1097/JU.7828160649224393. * Postoperative Symptom Severity and Time Course After Bilateral Ureteroscopy With Stents: Results From the Study to Enhance Understanding of Stent- Associated Symptoms (STENTS) https://pubmed.ncbi.nlm.nih.gov/15800321 . Mikaela Alonso JD, Maalouf NM, et al. Urology. 2024;:E5224-6188(25)29772-5. doi:10.1016/j.urology.202.08.057. * Timing of Ureteral Stent Removal After Ureteroscopy on Stent-Related Symptoms: A Validated Questionnaire Comparison of 3 and 7 Days Stent Duration https://pubmed.ncbi.nlm.nih.gov/60422220 . Olga DJ, Karol J, Gianfranco C, et al. Journal of Endourology. 2022;. doi:10.1089/end.2022.0189. * Development of Prediction Models for Severe Pain and Urinary Symptoms After Ureteroscopy With Ureteral Stent Placement: Results From the STENTS Study and Initial Validation of Pain Interference https://pubmed.ncbi.nlm.nih.gov/93886761 . Emerson GE, Mikaela EspinalD, Al-Rachell HR, et al. The Journal of Urology. 2024;213(4):475-484. doi:10.1097/JU.2781499028551486. * Nonopioid Pain Management Pathways for Stone Disease https://pubmed.ncbi.nlm.nih.gov/01564124 . Hema HARDEN, Gurwinder NL. Journal of Endourology. 2023;38(2):108-120. doi:10.1089/end.0266. * The Use of Outpatient Opioid Medication for Acute Renal Colic and Ureteral Stents: Insights From a Multi-Institutional Patient Survey? https://pubmed.ncbi.nlm.nih.gov/04004860 . Becky A, Tylor ME, Tavon M, et al. Clinical Nephrology. 2020;93(6):269-274. doi:10.5414/GJ441453. * Pharmacological Management of Ureteral Stent-Related Symptoms: A Systematic Review, Bayesian Network [place]-Analysis, and [place]-Regression https://pubmed.ncbi.nlm.nih.gov/53703174 . Nelly DE, Luigi MR, Miley BH. The Journal of Urology. 2022;210(5):739-749. doi:10.1097/JU.9468346758335496. * Prevention and Treatment of Symptoms Associated With Indwelling Ureteral Stents: A Systematic Review https://pubmed.ncbi.nlm.nih.gov/84663654 . Kody P, Zramya V, Hansaer A, Peri HP, Serenity D. International Journal of Urology : Official Journal of the [place] [employer]. 2017;24(4):250-259. doi:10.1111/iju.14721. * Ureteral Stent-Related Symptoms and Pharmacotherapy: A Brief Narrative Review https://pubmed.ncbi.nlm.nih.gov/44193598 . Andrew TC, Denice SN, Benji SG, et al. Journal of Clinical Pharmacology. 202;63(10):1091- 1100. doi:10.1002/jcph.2314. * Relief of Stent Related Symptoms: Review of Engineering and Pharmacological Solutions https://pubmed.ncbi.nlm.nih.gov/24568646 . Florin A, Ariel HB, Zayra AG, Marina FX. The Journal of Urology. 2010;184(4):1267-72. doi:10.1016/j.juro.2010.06.043. * Ondansetron Hydrochloride https://dailymed.nlm.nih.gov/dailymed/drugInfo.cfm?rkyyu=09pfw028-bcl0-91x7-q4 [email or web address] . Food and Drug Administration. Updated date: 2017-06-01. * Urinary Tract Infection and Antibiotic Use Around Ureteral Stent Insertion for Urolithiasis https://pubmed.ncbi.nlm.nih.gov/19839534 . Brendan B, Yaw P, Violeta G, et al. Journal of Clinical Microbiology & Infectious Diseases : Official Publication of the Society of Clinical Microbiology. 2020;39(11):5375-4702. doi:10.1007/j59959-884-29969-8. * Bridging the Knowledge Gap: Past, Present and Future of Antibiotic Use for Ureteral Stents https://pubmed.ncbi.nlm.nih.gov/17224401 . Colton J, Diana D, Keegan BH, Lorena T. BJU International. 2023;134(6):858-868. doi:10.1111/bju.53940. * Late Complications of Ureteral Stents https://pubmed.ncbi.nlm.nih.gov/28582957 . Tiffanie A, Gladis S, Ne M, Tiara I. Urology. 2000;38(1):41-4. doi:10.1159/839378907. * The Impact of Ureteral Stent Indwelling Time on the Treatment of Acute Infection Caused by Ureteral Calculi https://pubmed.ncbi.nlm.nih.gov/98580129 . Andria YF, Kandi WL, Wright YP, Chika SJ, Sun XW. Urolithiasis. 2017;45(6):579-583. doi:10.1007/j44245-288-7420-0. Print Language: Lao Coding Level of Care Code ED [employer] Fwd Documented by User: Carlo Harrell DO 12/30/24 14:01 HPI - Abdominal Pain 2 General: Chief Complaint: Abdominal Pain Stated Complaint: Vaisler sent, blood in urine, abd pain Time Seen by Provider: 12/30/24 09:11 Related Data Previous Rx's ?Medication ?Instructions ?Recorded omeprazole 40 mg capsule,delayed 40 mg PO DAILY #90 ca ps 11/27/23 release fluticasone propionate 50 See Rx Instructions .Route 0 12/04/23 mcg/actuation nasal .COMPLEX #16 grams spray,suspension albuterol sulfate 90 mcg/actuation 2 puff inhalation Q 6H PRN 10/28/24 aerosol inhaler shortness of breath or wheez ing #8.5 grams ibuprofen 800 mg tablet 800 mg PO Q8H PRN pain #30 t abs 11/22/24 methocarbamol 750 mg tablet 750 mg PO TID #30 tabs 12/09 prednisone 20 mg tablet 60 mg (3 x 20 mg) PO DAILY 5 days 11/22/24 #15 tabs methocarbamol 500 mg tablet 500 mg PO Q8H PRN muscle s pasm #30 11/25/24 tabs methylprednisolone 4 mg tablets in See Rx Instructions PO .COMPLEX 11/25/24 a dose pack (Medrol (Lavon)) #21 ea aripiprazole 5 mg tablet 5 mg PO DAILY #30 tabs 11/29 bupropion HCl 300 mg 24 hr tablet, 300 mg PO QAM #30 t abs 11/29/24 extended release (Wellbutrin XL) sertraline 100 mg tablet 200 mg (2 x 100 mg) PO DAILY #60 11/29/24 tabs trazodone 50 mg tablet 100 mg (2 x 50 mg) PO .HS TN N 11/29/24 insomnia #60 tabs levofloxacin 750 mg tablet 750 mg PO DAILY 5 days #5 t abs 12/25/24 hydrocodone 7.5 mg-acetaminophen 1 tab PO Q8H PRN pain #14 tabs 12/30/24 325 mg tablet ondansetron 4 mg disintegrating 4 mg PO TID PRN nausea and 12/30/24 tablet vomiting #30 tabs Allergies Allergy/AdvReac Type Severity Reaction Status Date / Time duloxetine Allergy sedation Verified 12/25/24 11:00 PFS ED 2 PFSH: Medical History Psychiatric care Adult BMI 50.0-59.9 kg/sq m Headache Urinary tract infection Nasal congestion Otitis media Encounter for screening for cardiovascular disorders Medication management Obesity COVID-19 Pulmonary embolism Migraine Depression Surgical History History of hysterectomy only 1 ovary History of Family History Other Psychiatric illness Denies family history of Diabetes CAD (coronary artery disease) Chronic kidney disease (CKD) Lung disease Cancer Hypertension Stroke Social History Smoking and tobacco/nicotine status: never used tobacco/nicotine Alcohol intake: never Substance/Drug Use: never Household members: spouse and children Marital status: Number of children: 3 Current gender identity: Female Course 2 Vital Signs: Vital signs: Vital Signs Temperature 98.2 F 12/30/24 08:39 Pulse Rate 88 12/30/24 08:39 Respiratory Rate 17 12/30/24 10:10 Blood Pressure 124/84 12/30/24 08:39 Pulse Oximetry 98 12/30/24 10:10 Oxygen Delivery Me thod Room Air 12/30/24 08:39 MDM - Abdominal Pain Medical Decision Making Patient presented with left flank pain with urinary symptoms, history concerning for recent stent placement in the left ureter for obstructed and infected stone. She sees Dr. Pereyra in [place] for urology. Nontoxic-appearing on exam, but tender to palpation to the left lower abdomen as well as to the left flank/CVA. Vitals have been stable. No leukocytosis on CBC, and kidney function is normal with her metabolic panel. Urinalysis is not grossly infected, and CT renal shows quite a bit of improvement or resolution of her hydroureteralnephrosis and apparent resolution of ureteral stone. For this there is no acute/emergent reason to transfer her or admit her to higher level of care, pain thought likely to be benign such as ureteral stent associated pain such as ureteral colic, or general musculoskeletal pain. Her symptoms have been controlled here in the emergency department, and while she is stable for discharge home she is given strict return precautions to the ED and informed to call urology and schedule an appointment with them later this week for reevaluation. Chart reviewed and patient discussed with midlevel. Agree with assessment and plan. Lab Data 12/30/24 09:06 12/30/24 09:06 Labs/Radiology: Radiology Impressions Abdomen/Pelvis CT 12/30/24 09:16 IMPRESSION: 1. Double-pigtail LEFT ureteral stent has been placed since 11/29/2024. Proximal pigtail is coiled in the superior renal pelvis. 2. Nearly completely resolved LEFT hydroureteronephrosis. Very slight dilatation persisting of the renal pelvis. 3. Previously described distal LEFT ureteral calcification is not identified. 4. No free fluid or free air. 5. No colitis. 6. No significant perinephric stranding surrounding either kidney. There is still very slight wall thickening of the LEFT ureter. Laboratory Results WBC 10.64 10^3/uL (3.29-11.43) 12/30/24 09:06 RBC 4.92 10^6/uL (3.85-5.65) 12/30/24 09:06 Hgb 12.70 g/dL (11.27-16.99) 12/30/24 09:06 Hct 40.3 % (36-47) 12/30/24 09:06 MCV 81.9 fl (85-98) L 12/30/24 09:06 MCH 25.8 pg (27-33) L 12/30/24 09:06 MCHC 31.5 g/dL (30-55) 12/30/24 09:06 RDW 16.2 % (12.1-15.1) H 12/30/24 09:06 Plt Count 338 10^3/cmm (157-399) 12/30/24 09:06 MPV 8.7 fL (7.4-10.4) 12/30/24 09:06 Neut % (Auto) 72.3 % 12/30/24 09:06 Lymph % (Auto) 18.0 % 12/30/24 09:06 White % (Auto) 5.2 % 12/30/24 09:06 Eos % (Auto) 3.4 % 12/30/24 09:06 Baso % (Auto) 0.7 % 12/30/24 09:06 Neut # (Auto) 7.71 10^3/uL (1.8-7.7) H 12/30/24 09:06 Lymph # (Auto) 1.9 10^3/uL (0.8-4.8) 12/30/24 09:06 White # (Auto) 0.6 10^3/uL (0.2-0.9) 12/30/24 09:06 Eos # (Auto) 0.4 10^3/uL (0.0-0.8) 12/30/24 09:06 Baso # (Auto) 0.1 10^3/uL (0.0-0.1) 12/30/24 09:06 Nucleated RBC % (auto) 0 % 12/30/24 09:06 Nucleated RBCs # 0.0 /100WBC 12/30/24 09:06 Sodium 141 mmol/L (136-145) 12/30/24 09:06 Potassium 4.0 mmol/L (3.5-5.1) 12/30/24 09:06 Chloride 103 mmol/L (98-107) 12/30/24 09:06 Carbon Dioxide 25 mmol/L (22-29) 12/30/24 09:06 Anion Gap 17.0 (5-19) 12/30/24 09:06 BUN 15 mg/dL (6-20) 12/30/24 09:06 Creatinine 0.7 mg/dL (0.5-0.9) 12/30/24 09:06 GFR Calculation 97.6 mL/min (90-130) 12/30/24 09:06 Glucose 92 mg/dL (65-115) 12/30/24 09:06 Calculated Osmolality 292 mOsm/kg (285-295) 12/30/24 09:06 Calcium 9.0 mg/dL (8.5-10.5) 12/30/24 09:06 Total Bilirubin 0.2 mg/dL (0.15-1.2) 12/30/24 09:06 AST 11 U/L (0-32) 12/30/24 09:06 ALT 16 U/L (0-33) 12/30/24 09:06 Alkaline Phosphatase 79 U/L (35-105) 12/30/24 09:06 Total Protein 7.5 g/dL (6.6-8.7) 12/30/24 09:06 Albumin 3.7 g/dL (3.5-5.2) 12/30/24 09:06 Globulin 3.8 g/dL (1.3-4.6) 12/30/24 09:06 HCG, Qual Negative (Negative) 12/30/24 09:06 Urine Color Yellow (Yellow) 12/30/24 09:16 Urine Appearance Clear (CLEAR) 12/30/24 09:16 Urine pH 7.0 (5-7) 12/30/24 09:16 Ur Specific [place] 1.011 (1.005-1.030) 12/30/24 09:16 Urine Protein Trace (Negative) A 12/30/24 09:16 Urine Glucose (UA) Negative (Normal) 12/30/24 09:16 Urine Ketones Negative (Negative) 12/30/24 09:16 Urine Blood 1+ (Negative) A 12/30/24 09:16 Urine Nitrate Negative (Negative) 12/30/24 09:16 Urine Bilirubin Negative (Negative) 12/30/24 09:16 Urine Urobilinogen 0.2 mg/dL (Negative) 12/30/24 09:16 Ur Leukocyte Esterase 1+ (Negative) A 12/30/24 09:16 Urine RBC 6-10 /hpf (0-2) 12/30/24 09:16 Urine WBC 6-10 /hpf (0-5) 12/30/24 09:16 Ur Squamous Epith Cells 0-5 /hpf (0-5) 12/30/24 09:16 Amorphous Sediment Not Reportable 12/30/24 09:16 Urine Bacteria None seen /hpf (NONE) 12/30/24 09:16 Hyaline Casts 0.40 /lpf 12/30/24 09:16 Discharge Plan Discharge Patient Disposition: Home Clinical Impression: Colic, ureteral Condition: Stable Prescriptions: New hydrocodone-acetaminophen 7.5-325 mg tablet 1 tab PO Q8H PRN (Reason: pain) Qty: 14 0RF ondansetron 4 mg tablet,disintegrating 4 mg PO TID PRN (Reason: nausea and vomiting) Qty: 30 0RF No Action aripiprazole 5 mg tablet 5 mg PO DAILY Qty: 30 2RF sertraline 100 mg tablet 200 mg PO DAILY Qty: 60 2RF trazodone 50 mg tablet 100 mg PO .HS PRN (Reason: insomnia) Qty: 60 2RF bupropion HCl [Wellbutrin XL] 300 mg tablet extended release 24 hr 300 mg PO QAM Qty: 30 2RF levofloxacin 750 mg tablet 750 mg PO DAILY 5 Days Qty: 5 0RF ibuprofen 800 mg tablet 800 mg PO Q8H PRN (Reason: pain) Qty: 30 0RF prednisone 20 mg tablet 60 mg PO DAILY 5 Days Qty: 15 0RF methocarbamol 750 mg tablet 750 mg PO TID Qty: 30 0RF omeprazole 40 mg capsule,delayed release(DR/EC) 40 mg PO DAILY Qty: 90 3RF fluticasone propionate 50 mcg/actuation spray,suspension See Rx Instructions .ROUTE .COMPLEX Qty: 16 1RF Dose Instruction: ADMINISTER 1 SPRAY INTO EACH NOSTRIL TWICE DAILY NEEDED FOR NASAL CONGESTION Rx Instructions: ADMINISTER 1 SPRAY INTO EACH NOSTRIL TWICE DAILY NEEDED FOR NASAL CONGESTION albuterol sulfate 90 mcg/actuation HFA aerosol inhaler 2 puff inhalation Q6H PRN (Reason: shortness of breath or wheezing) Qty: 8.5 0RF methocarbamol 500 mg tablet 500 mg PO Q8H PRN (Reason: muscle spasm) Qty: 30 0RF methylprednisolone [Medrol (Lavon)] 4 mg tablets,dose pack See Rx Instructions .ROUTE .COMPLEX Qty: 21 0RF Rx Instructions: for 6 days Discharge Orders: Discharge ED (Routine); Ordered 12/30/24 Ordered By: Tre Barney Referrals: Kayden Kitchen MD [Primary Care Provider, Family Practice] Patient Instructions: Patient Portal & Mary Instructions Activity Restrictions/Additional Instructions: Ureteral Stent Discharge Instructions Discharge Instructions: 29-year-old Female with Ureteral Stent Diagnosis/Context: - Left flank pain and urinary symptoms following recent ureteral stent placement for obstructing stone and infected stone. - Imaging shows improvement of prior urinary tract infection; urinalysis is negative for acute infection. - Stent remains in place. Benign Causes of Pain: - Ureteral stent-associated pain is common and typically benign, resulting from mucosal irritation, bladder wall contact, and mechanical friction of the stent within the urinary tract.[1] https://pubmed.ncbi.nlm.nih.gov/39213694 [2] https://pubmed.ncbi.nlm.nih.gov/67696363 - Flank pain, suprapubic discomfort, urinary urgency, and frequency are frequently reported and are not necessarily indicative of infection or obstruction.[1] https://pubmed.ncbi.nlm.nih.gov/89678529 [2] https://pubmed.ncbi.nlm.nih.gov/66299203 [3] https:/ /pubmed.ncbi.nlm.nih.gov/30404498 - Pain intensity is often highest in the first few days post-procedure and may persist, but typically improves after stent removal.[2] https://pubmed.ncbi.nlm.nih.gov/20908941 [3] https://pubmed.ncbi.nlm.nih.gov/38264336 [4] https:/ /pubmed.ncbi.nlm.nih.gov/79703716 - Patient factors such as younger age and female sex are associated with increased pain and urinary symptoms.[2] https://pubmed.ncbi.nlm.nih.gov/78106355 [5] https://pubmed.ncbi.nlm.nih.gov/69088571 Pain Management: - Non-opioid analgesics (e.g., NSAIDs) are first-line for stent-related pain when not contraindicated. [6] https://pubmed.ncbi.nlm.nih.gov/20951025 - Hydrocodone is prescribed for breakthrough pain, recognizing that opioid use for stent pain is less common than for stone pain, but may be necessary in younger patients or those with significant discomfort.[7] https://pubmed.ncbi.nlm.nih.gov/20125127 [6] https://pubmed.ncbi.nlm.nih.gov/94147043 - Consideration of adjunctive therapies (e.g., alpha-blockers, anticholinergics) may be appropriate for persistent stent-related symptoms, but are not routinely initiated at discharge unless symptoms are severe.[1] https://pubmed.ncbi.nlm.nih.gov/21486255 [8] https://pubmed.ncbi.nlm.nih.gov/81286864 [9] https:/ /pubmed.ncbi.nlm.nih.gov/13526128 [10] https://pubmed.ncbi.nlm.nih.gov/36037026 [11] https://pubmed.ncbi.nlm.nih.gov/64051663 Nausea Management: - Ondansetron (Zofran) is prescribed for nausea. Standard adult dosing is 8 mg orally every 8 hours as needed, with dose adjustment in severe hepatic impairment.[12] https://dailymed.nlm.nih.gov/dailymed/drugInfo.cfm?jdoul=[email or web address]-z53p -[id number] Signs/Symptoms Requiring Immediate Attention: - Fever, chills, worsening flank pain, gross hematuria, inability to urinate, or signs of urinary tract infection (dysuria, urgency, frequency with fever) should prompt immediate evaluation.[13] https://pubmed.ncbi.nlm.nih.gov/25737201 [14] https://pubmed.ncbi.nlm.nih.gov/65407352 [15] http s://pubmed.ncbi.nlm.nih.gov/83582688 Follow-Up: - Close follow-up with urology is essential to monitor for stent-related complications, assess for stone clearance, and determine timing of stent removal.[16] https://pubmed.ncbi.nlm.nih.gov/96006064 [15] https://pubmed.ncbi.nlm.nih.gov/83131932 [4] https ://pubmed.ncbi.nlm.nih.gov/97799120 - Stent removal is typically planned after infection resolution and definitive stone management, as prolonged indwelling time does not confer additional benefit in infection control.[16] https://pubmed.ncbi.nlm.nih.gov/60104802 [4] https://pubmed.ncbi.nlm.nih.gov/22749212 Patient Education: - Stent-related symptoms are common and usually benign. - Pain and urinary symptoms often improve after stent removal. - Adherence to prescribed medications and follow-up is important for optimal recovery.[9] https://pubmed.ncbi.nlm.nih.gov/30529653 Medications Prescribed: - Hydrocodone: For breakthrough pain, use as directed. - Ondansetron (Zofran): 8 mg orally every 8 hours as needed for nausea.[12] https://dailymed.nlm.nih.gov/dailymed/drugInfo.cfm?anmug=[email or web address]-f48g -[id number] Contact Information: - For urgent symptoms, contact the urology clinic or present to the emergency department. Summary: This patient is being discharged with a ureteral stent in place, improved infection, and no evidence of acute urinary tract infection. Pain and urinary symptoms are most likely benign and stent-related. Hydrocodone and ondansetron are prescribed for symptom control. Urology follow-up is required for ongoing management and stent removal planning.[1] https://pubmed.ncbi.nlm.nih.gov/28599394 [2] https://pubmed.ncbi.nlm.nih.gov/41838190 [7] https:/ /pubmed.ncbi.nlm.nih.gov/77703863 [6] https://pubmed.ncbi.nlm.nih.gov/54755954 [16] https://pubmed.ncbi.nlm.nih.gov/54514805 [12] https://dailymed.nlm.nih.gov/dailymed/drugInfo.cfm?wbtuw=49uom947-cad7 -10v3-[email or web address] [15] https://pubmed.ncbi.nlm.nih.gov/32421093 [4] https://pubmed.ncbi.nlm.nih.gov/56376525 References * Ureteral Stent-Associated Pain: A Review https://pubmed.ncbi.nlm.nih.gov/65685782 . Gene C, Shana C, Chetna PK, Allison SE. Journal of Endourology. 2016;30(7):744-53. doi:10.1089/end.2016.0129. * Risk Factors for Increased Stent-Associated Symptoms Following Ureteroscopy for Urinary Stones: Results From STENTS https://pubmed.ncbi.nlm.nih.gov/78754496 . Mikaela DIAZ, Luzma BULLARD, Terrence BURKS, et al. The Journal of Urology. 2022;209(5):971-980. doi:10.1097/JU.9024513260289767. * Postoperative Symptom Severity and Time Course After Bilateral Ureteroscopy With Stents: Results From the Study to Enhance Understanding of Stent- Associated Symptoms (STENTS) https://pubmed.ncbi.nlm.nih.gov/27218796 . Luzma BULLARD, Mikaela DIAZ, Terrence BURKS, et al. Urology. 2024;:W[address](25)34276-4. doi:10.1016/j.urology.202.08.057. * Timing of Ureteral Stent Removal After Ureteroscopy on Stent-Related Symptoms: A Validated Questionnaire Comparison of 3 and 7 Days Stent Duration https://pubmed.ncbi.nlm.nih.gov/39432710 . Olga GIRALDO, Karol J, Gianfranco C, et al. Journal of Endourology. 2022;. doi:10.1089/end.0189. * Development of Prediction Models for Severe Pain and Urinary Symptoms After Ureteroscopy With Ureteral Stent Placement: Results From the STENTS Study and Initial Validation of Pain Interference https://pubmed.ncbi.nlm.nih.gov/32106471 . Emerson GE, Mikaela DIAZ, Al-Rachell HR, et al. The Journal of Urology. 2024;213(4):475-484. doi:10.1097/JU.2234007234305664. * Nonopioid Pain Management Pathways for Stone Disease https://pubmed.ncbi.nlm.nih.gov/26288002 . Hema HARDEN, Purdy NL. Journal of Endourology. 2023;38(2):108-120. doi:10.1089/end.2022.0266. * The Use of Outpatient Opioid Medication for Acute Renal Colic and Ureteral Stents: Insights From a Multi-Institutional Patient Survey? https://pubmed.ncbi.nlm.nih.gov/17155992 . Becky A, Tylor ME, Tavon M, et al. Clinical Nephrology. 2020;93(6):269-274. doi:10.5414/YS070149. * Pharmacological Management of Ureteral Stent-Related Symptoms: A Systematic Review, Bayesian Network [place]-Analysis, and [place]-Regression https://pubmed.ncbi.nlm.nih.gov/40668518 . Nelly DE, Luigi MR, Miley BH. The Journal of Urology. 2022;210(5):739-749. doi:10.1097/JU.8884100301715658. * Prevention and Treatment of Symptoms Associated With Indwelling Ureteral Stents: A Systematic Review https://pubmed.ncbi.nlm.nih.gov/85484641 . Betyady P, Zsagetein V, Piller A, Peri HP, Abt D. International Journal of Urology : Official Journal of the [place] [employer]. 2017;24(4):250-259. doi:10.1111/iju.90470. * Ureteral Stent-Related Symptoms and Pharmacotherapy: A Brief Narrative Review https://pubmed.ncbi.nlm.nih.gov/37350726 . Genevieveos TC, Denice SN, Michaelos-Miller SG, et al. Journal of Clinical Pharmacology. 2022;63(10):1091- 1100. doi:10.1002/jcph.2314. * Relief of Stent Related Symptoms: Review of Engineering and Pharmacological Solutions https://pubmed.ncbi.nlm.nih.gov/63679148 . Florin A, Ariel HB, Zayra AG, Marina FX. The Journal of Urology. 2010;184(4):1267-72. doi:10.1016/j.juro.2010.06.043. * Ondansetron Hydrochloride https://dailymed.nlm.nih.gov/dailymed/drugInfo.cfm?zlmlw=94gqk283-crb3-42b4-t2 [email or web address] . Food and Drug Administration. Updated date: 2017-06-01. * Urinary Tract Infection and Antibiotic Use Around Ureteral Stent Insertion for Urolithiasis https://pubmed.ncbi.nlm.nih.gov/49811601 . Brendan B, Yaw P, Violeta G, et al. Journal of Clinical Microbiology & Infectious Diseases : Official Publication of the Society of Clinical Microbiology. 2020;39(11):6189-7772. doi:10.1007/j74243-028-30286-7. * Bridging the Knowledge Gap: Past, Present and Future of Antibiotic Use for Ureteral Stents https://pubmed.ncbi.nlm.nih.gov/59054180 . Colton J, Diana D, Keegan BH, Lorena T. [employer] International. 2023;134(6):858-868. doi:10.1111/bju.60280. * Late Complications of Ureteral Stents https://pubmed.ncbi.nlm.nih.gov/21544580 . Tiffanie A, Griffith S, Shakerryv M, Nissenkorn I. Urology. 2000;38(1):41-4. doi:10.1159/095876227. * The Impact of Ureteral Stent Indwelling Time on the Treatment of Acute Infection Caused by Ureteral Calculi https://pubmed.ncbi.nlm.nih.gov/31323774 . Andria YF, Ju WL, Wright YP, Chika SJ, Sun XW. Urolithiasis. 2017;45(6):579-583. doi:10.1007/g84237-978-5211-0. Print Language: Lao Coding Level of Care Code ED [employer] for [employer]
[2024-12-30 09:31] LABS: HCG, Serum Qual Negative (Negative)
[2024-12-30 09:32] LABS: Glucose Urine UA Negative (Normal); Nitrate Urine Negative (Negative); Specific Gravity, Urine 1.011 (1.005-1.030)
[2024-12-30 09:34] LABS: Alanine Aminotransferase 16 U/L (0-33); Albumin Level 3.7 g/dL (3.5-5.2); Alkaline Phosphatase 79 U/L (35-105); Anion Gap 17.0 (5-19); Aspartate Amino Transferase 11 U/L (0-32); Blood Urea Nitrogen 15 mg/dL (6-20); Calcium 9.0 mg/dL (8.5-10.5); Carbon Dioxide 25 mmol/L (22-29); Chloride 103 mmol/L (98-107); Creatinine Clr Calc Pharmacy 144.4443; Globulin 3.8 g/dL (1.3-4.6); Glucose 92 mg/dL (65-115); Osmolality Calculated 292 mOsm/kg (285-295); Potassium 4.0 mmol/L (3.5-5.1); Sodium 141 mmol/L (136-145); Total Protein 7.5 g/dL (6.6-8.7)
[2024-12-30 09:37] LABS: Add Urine Microscopic? YES
[2024-12-30 10:10] VITALS: RESP 17; O2SAT 98
[2024-12-30] MEDS: morphine 4 mg/mL SDV 1 mL IVP (10:10)
[2024-12-30] MEDS: ondansetron 2 mg/ML SDV 2 mL 4 MG IVP (10:11)
== END 2024-12-30 10:27 | disposition home or self-care (01) ==
PROVIDERS: Family Medicine; Emergency Provider Physician Assistant; PCP Family Medicine
DX: N36.8 Other specified disorders of urethra (principal)
CPT/HCPCS: 36415; 74176; 80053; 81001; 84703; 85025; 96374; 96375; 99285; J2270; J2405

== ENCOUNTER 2025-02-13 11:51 | Emergency (ER) | payer MEDICAID, SELFPAY ==
[2025-02-13 11:55] VITALS: BP 135/83; PULSE 81; TEMP 36.4; O2SAT 97; BMI 52.0
--- OUTSIDE RECORDS SUMMARY | 2025-02-13 12:09 | XMS_ITS | Patient Health Record ---
Author Organization [facility] Address [address] [place] [address] Care Team Providers Care Check Pilot Name Role Phone Fidelina NICOLE, Kayden Primary Care Provider Unavailab Nj Jasso Unavailable [phone] Vee Shankar Unavailable Allergies Allergen (clinical drug ingredient) Drug/Non Drug Allergy documented on EMR Reaction Allergy Type Onset Date Status duloxetine DULoxetine Unknown Drug Allergy Activ e Results Component Value Reference Range Flag Notes Retrograde Urography Reviewed date:01/13/2025 03:13:09 PM Interpretation: Performing Lab: Notes/Report: See Below For Report Retrograde Urography Read See Below For Report Culture Urine [id number] Reviewed date:01/28/2025 01:46:27 PM Interpretation: Performing Lab: Notes/Report: Culture Urine SHERYL Waite Culture Urine t: Culture Urine Culture Urine Access [id number] Culture Urine n: Culture Urine Microbiology Culture Urine PROCEDURE: Culture Urine [O1] Culture Urine SOURCE: Urine BODY SITE: Culture Urine COLLECTED DATE/TIME: 01/22/2025 09:27 CDT RECEIVED DATE/TIME: 01/22/2025 15:41 CDT Culture Urine START DATE/TIME: 01/22/2025 15:41 CDT FREE TEXT SOURCE: Culture Urine FINAL REPORT Culture Urine Final Report [] Culture Urine Verified Date/Time: 01/24/2025 08:48 CDT Culture Urine >10,000 cfu/ml Mixed enteric александр Culture Urine 3 or more isolates o f Gram Negative Rods with no predominant pathogen observed. Culture Urine No further work-up i s indicated Culture Urine Order Comments Culture Urine O1: Culture Urine (Culture Urine [id number]) Culture Urine Diagnosis Descriptio n: Presence of urogenital implants Chest PA/Lat-[id number] Reviewed date:02/07/2025 02:00:51 PM Interpretation: Performing Lab: Notes/Report: [id number] Culture Urine [id number] Reviewed date:02/05/2025 04:48:57 PM Interpretation: Performing Lab: Notes/Report: Culture Urine SHERYL Waite Culture Urine t: Culture Urine Culture Urine Accessio [id number] Culture Urine n: Culture Urine Microbiology Culture Urine PROCEDURE: Culture U rine [] Culture Urine SOURCE: U CC BODY SITE: Culture Urine COLLECTED DATE/TIME: 02/03/2025 11:15 CDT RECEIVED DATE/TIME: 02/03/2025 13:14 CDT Culture Urine START DATE/TIME: 02/03/2025 13:14 CDT FREE TEXT SOURCE: Culture Urine FINAL REPORT Culture Urine Final Report [] Culture Urine Verified Date/Time: 02/05/2025 05:55 CDT Culture Urine >100,000 cfu/ml. Escherichia coli Culture Urine SUSCEPTIBILITY RESULTS Culture Urine Esccol Culture Urine Antibiotic MDIL MINT Culture Urine Ampicillin >=32 Resistant Culture Urine Ampicillin/Sulbactam >=32 Resistant Culture Urine Cefepime <=0.12 Susceptible Culture Urine Ceftazidime >=32 Resistant Culture Urine Ceftriaxone 8 Resistant Culture Urine Ciprofloxacin >=4 Resistant Culture Urine ESBL Negative Negative Culture Urine Gentamicin <=1 Susceptible Culture Urine Levofloxacin >=8 Resistant Culture Urine Meropenem <=0.25 Susceptible Culture Urine Nitrofurantoin <=16 Susceptible Culture Urine Piperacillin/Tazobac condno <=4 Susceptible Culture Urine Trimethoprim/Sulfa > =320 Resistant Retrograde Urography (Not ye t reviewed by provider) Interpretation: Performing Lab: Notes/Report: [id number] Retrograde Urography (Not ye t reviewed by provider) Interpretation: Performing Lab: Notes/Report: See Below For Report Retrograde Urography Read See Below For Report Chest PA/Lat-79981 Reviewed date:02/07/2025 02:01:07 PM Interpretation: Performing Lab: Notes/Report: See Below For Report Chest PA/Lat Read See Below For Report Culture Urine [id number] Reviewed date:01/06/2025 09:00:37 AM Interpretation: Performing Lab: Notes/Report: Culture Urine SHERYL Waite Culture Urine t: Culture Urine Culture Urine Accessio [id number] Culture Urine n: Culture Urine Microbiology Culture Urine PROCEDURE: Culture U rine [O1] Culture Urine SOURCE: Urine BODY SITE: Culture Urine COLLECTED DATE/TIME: 01/03/2025 09:04 CDT RECEIVED DATE/TIME: 01/03/2025 15:56 CDT Culture Urine START DATE/TIME: 01/03/2025 15:56 CDT FREE TEXT SOURCE: Culture Urine FINAL REPORT Culture Urine Final Report [] Culture Urine Verified Date/Time: 01/05/2025 08:36 CDT Culture Urine >100,000 cfu/ml. Staphylococcus epidermidis Culture Urine SUSCEPTIBILITY RESULTS Culture Urine Staepi Culture Urine Antibiotic MDIL MINT Culture Urine Benzylpenicillin >=0 .5 Resistant Culture Urine Ciprofloxacin 4 Resistant Culture Urine Clindamycin >=8 Resistant Culture Urine Erythromycin >=8 Resistant Culture Urine Gentamicin <=0.5 Susceptible Culture Urine Levofloxacin 4 Resistant Culture Urine LINEZOLID 1 Susceptible Culture Urine Nitrofurantoin <=16 Susceptible Culture Urine Oxacillin >=4 Resistant Culture Urine Rifampin <=0.5 Susceptible Culture Urine Tetracycline >=16 Resistant Culture Urine Vancomycin 1 Susceptible Culture Urine Order Comments Culture Urine O1: Culture Urine (Culture Urine [id number]) Culture Urine Diagnosis Descriptio n: Unspecified symptoms and signs involving the genitourinary system Basic Metabolic Panel (BMP) [id number] Reviewed date:02/05/2025 09:04:31 AM Interpretation: Performing Lab: Notes/Report: Sodium 138 136-145 MMOL/L Potassium 4.0 3.5-5.1 MMOL/L Chloride 98 98-107 MMOL/L CO2 25.8 20.0-31.0 MMOL/L Glucose Serum 84 71-110 MG/DL Testing p erformed at [facility], [address] [place] [address] [place] [address]. CLIA ID#: [id number] BUN 13 7-21 MG/DL Creat .82 .51-1.17 MG/DL X-frnuya-u-benzoquin one imine (NAPQI) is a metabolite of acetaminophen, NAPQI concentrations of apparoximately 10 mg/L correlation to toxic levels of acetaminophen demonstrates a greater than or equil to 10% change in results. NAPQI concentrations greater than this may lead to falsely depressed results for patient samples. Use of this assay is not recommended for patients undergoing treatment with phenindione, due to the potential for falsely depressed results. GFR 97.3 NA Calculation pe rformed from GFR calculator provided by the [employer]. Glomerular Filtration rate(GRF) is the best overall index of kidney function. Normal GFR varies according to age,sex, body size, and declines with age. The [employer] recommends using the CKD-EPI Creatinine Equation(2020) to estimate GFR. Anion Gap 18 5-15 HI BUN/Creat Ratio 15.9 12.0-20.0 % Calcium 9.1 8.7-10.4 MG/DL Osmo Serum,Calculated 285 280-300 MOSM/KG CBC w\ Auto Diff [id number] Reviewed date:02/05/2025 09:04:22 AM Interpretation: Performing Lab: Notes/Report: WBC 9.3 4.5-11.0 X10'3 RBC 4.58 4.00-5.20 X10'6 Hgb 11.7 12.0-16.0 G/DL LOW Hct 36.8 36.0-46.0 % MCV 80.3 80.0-100.0 FL MCH 25.5 27.0-31.0 PG LOW MCHC 31.8 31.0-37.0 G/DL Platelet 482 150-400 X10'3 HI RDW-SD 47.5 35.0-49.0 FL RDW-CV 15.9 12.2-15.6 % HI MPV 9.4 9.2-12.0 FL Neutro Auto% 73.5 40.0-70.0 % HI Lymph Auto% 15.0 22.0-44.0 % LOW Oxford Auto% 8.3 3.0-7.0 % HI Eos Auto% 2.6 2.0-4.0 % Baso Auto% 0.4 0.0-1.0 % Imm Gran% .2 .0-.4 % Neutro Abs 6.85 .80-7.70 Absolute Neutrophil Count 6850 NA Lymph Abs 1.40 .10-4.10 Oxford Abs .77 .20-1.00 Eos Abs .24 .00-.40 Baso Abs .04 .00-.20 Imm Gran Abs .02 .00-.10 NRBC# .00 .00-.20 X10'3 NRBC% .00 .00-.20 /100 intact WBC's UA Without Micro-Auto, [facility] [place] - [id number] Reviewed date:01/22/2025 09:23:59 AM Interpretation: Performing Lab: Notes/Report: Glucose 0 Bili 0 Ketones 0 Sp Edison 1.020 Blood 3+ pH 6.0 Protein 2+ Urobili 0 Nitrites + Leukocytes 2+ Retrograde Urography Reviewed date:01/13/2025 03:13:09 PM Interpretation: Performing Lab: Notes/Report: [id number] Culture Urine [id number] Reviewed date:01/02/2025 11:04:01 AM Interpretation: Performing Lab: Notes/Report: Culture Urine Zoesanju MARTIN SHERYLSANJU ANAYA Culture Urine t: Culture Urine Culture Urine Accessio [id number] Culture Urine n: Culture Urine Microbiology Culture Urine PROCEDURE: Culture U rine [O1] Culture Urine SOURCE: Urine BODY SITE: Culture Urine COLLECTED DATE/TIME: 12/10/2024 13:38 CDT RECEIVED DATE/TIME: 12/10/2024 18:05 CDT Culture Urine START DATE/TIME: 12/10/2024 18:06 CDT FREE TEXT SOURCE: Culture Urine FINAL REPORT Culture Urine Final Report [] Culture Urine Verified Date/Time: 12/12/2024 06:51 CDT Culture Urine <10,000 cfu/ml Mixed Superficial Александр Culture Urine Order Comments Culture Urine O1: Culture Urine (Culture Urine [id number]) Culture Urine Diagnosis Descriptio n: Unspecified abnormal findings in urine UA Without Micro-Auto, [facility] [place] - [id number] Reviewed date:12/10/2024 01:17:41 PM Interpretation: Performing Lab: Notes/Report: Glucose 0 Bili 1+ Ketones 0 Sp Edison 1.025 Blood 3+ pH 6.0 Protein 1+ Urobili 0 Nitrites 0 Leukocytes 1+ Reason For Referral No Information Medications Medication SIG (Take, Route, Frequency, Duration) Notes Start Date End Date Status Macrobid 100 MG Capsule 1 capsule with f ood Orally twice a day; Duration: 7 days 02/06/2025 02/13/2025 Active Sertraline HCl 100 MG Tablet TAKE 2 TABLETS BY MOUTH ONCE DAILY Oral; Duration: 30 Days Not-Taking ARIPiprazole 5 MG Tablet TAKE 1 TABLET B Y MOUTH ONCE DAILY Oral; Duration: 30 Days Active Omeprazole 10 MG Capsule Delayed Release 1 capsule 1/2 to 1 hour before morning meal Orally Once a day; Duration: 30 day(s) 12/10/2024 Active buPROPion HCl ER (XL) 300 MG Tablet Extended Release 24 Hour TAKE 1 TABLET BY MOUTH IN THE MORNING Oral; Duration: 30 Days Not-Taking Tamsulosin HCl 0.4 MG Capsule 1 capsule Orally Once a day at bedtime; Duration: 14 days 01/01/2025 Active Ondansetron 4 MG Tablet Disintegrating 1 tablet on the tongue and allow to dissolve Orally EVERY 6 HOURS; Duration: 30 days As needed 12/10/2024 Active Trimethoprim 100 MG Tablet 1 tablet Orally Once a day; Duration: 30 days Start after completing Bactrim 01/22/2025 02/21/2025 Active Ondansetron 8 MG Tablet Disintegrating 1-2 tablets Orally every 6 hours; Duration: 20 days as needed allow to dissolve on the tongue 01/09/2025 Active Solifenacin Succinate 10 MG Tablet 1 tablet Orally Once a day; Duration: 14 days 01/01/2025 Active Social History Tobacco Use: Social History Observation Description Date Details (start date - stop date) Never Smoker NA - NA Social History Tobacco Use: Social Info Question Answer Notes Tobacco Control (Standard) Tobacco use: Nonsmoker Section Notes: caffeine- pos alcohol- on occassion caffeine- pos alcohol- on occassion Problems Problem Type SNOMED Code ICD Code Onset Dates Problem Status W/U Status Risk Notes Problem Chronic cystitis (62848820) Chronic cystitis (N30.20) Active confirmed Problem Ureteral stent present (Z96.0) Active confirmed Vital Signs Heart Rate 94 /min 01/22/2025 Temperature 98.6 degrees Fahrenheit 01/22/2025 Height-cm 154.94 cm 01/22/2025 Blood pressure diastolic 94 mm Hg 01/22/2025 Weight-kg 126.28 kg 01/22/2025 Height 61 in 01/22/2025 Blood pressure systolic 133 mm Hg 01/22/2025 Weight 278.4 lbs 01/22/2025 BMI 52.6 kg/m2 01/22/2025 Encounters Encounter Location Date Provider Diagnosis [facility] [address] [place] [address] 12/10/2024 Vee Shankar Calculus of ureter N20.1 ; Ureteral stent present Z96.0 ; Pyonephrosis N13.6 ; Nausea R11.0 and Unspecified abnormal findings in urine R82.90 [facility] [address] [place] [address] 01/22/2025 Nj Pereyra Ureteral stent prese nt Z96.0 ; Acute cystitis N30.00 and Chronic cystitis N30.20 [facility] [address] [place] [address] [address] [place] [address] 01/03/2025 Nj Pereyra Unspecified symptoms and signs involving the genitourinary system R39.9 [facility] [address] [place] [address] 01/01/2025 Nj Mendessay [facility] [address] [place] [address] 01/01/2025 Nj [facility] [address] [place] [address] 12/30/2024 Nj Mendessay [facility] [address] [place] [address] 12/23/2024 Nj [facility] [address] [place] [address] 12/18/2024 Nj Mendessay [facility] [address] [place] [address] 12/10/2024 Vee Shankar [facility] [address] [place] [address] 12/10/2024 Nj Mendessay [facility] [address] [place] [address] 12/10/2024 Vee BernalXie [facility] [address] [place] [address] 12/09/2024 [facility] [address] [place] [address] 02/06/2025 [facility] [address] [place] [address] 01/29/2025 [facility] [address] [place] [address] 01/22/2025 [facility] [address] [place] [address] 01/21/2025 [facility] [address] [place] [address] 01/20/2025 [facility] [address] [place] [address] 01/09/2025 [facility] [address] [place] [address] 01/09/2025 [facility] [address] [place] [address] 01/09/2025 [facility] [address] [place] [address] 01/06/2025 [facility] [address] [place] [address] 01/03/2025 [facility] Assessments Encounter Date Diagnosis (ICD Code) Assessment Notes Treatment Notes Treatment Clinical Notes Section Notes 01/03/2025 Unspecified symptoms and signs involving the genitourinary system (ICD-10 - R39.9) 01/22/2025 Acute cystitis (ICD-10 - N30.00) 01/22/2025 Ureteral stent present (ICD-10 - Z96.0) 12/10/2024 Calculus of ureter (ICD-10 - N20.1) 12/10/2024 Ureteral stent present (ICD-10 - Z96.0) 12/10/2024 Pyonephrosis (ICD-10 - N13.6) 01/22/2025 Chronic cystitis (ICD-10 - N30.20) 12/10/2024 Nausea (ICD-10 - R11.0) 12/10/2024 Unspecified abnormal findings in urine (ICD-10 - R82.90) 12/10/2024 Other CULTURE URINE NAUSEA MEDICATION SENT TO PHARMACY - ONDANSETRON 4 MG TO TAKE EVERY 6 HOURS PATIENT TO FINISH HER BACTRIM PRESCRIPTION PATIENT TO BE SCHEDULED FOR LEFT STONE MANIPULATION AND LEFT STENT REMOVAL VS. EXCHANGE FOLLOW UP AFTER PROCEDURE 01/22/2025 Other IM Rocephin today Culture urine Begin trimethoprim prophylaxis after completing current antibiotics Begin bactrim for one week. Left Stone manipulation as scheduled. Plan Of Treatment Pending Test Test Name Order Date Retrograde Urography 02/10/2025 Retrograde Urography 02/10/2025 Next Appt Details Provider Name:Nj sims, 02/19/2025 10:20:00 AM, [address] [facility] [address], [place], [address], Insurance Providers Payer Name Payer Address Payer Phone Subscriber Number Group Number Insured Name Patient Relationship to Insured Coverage Start Date Coverage End Date [facility] Medicaid Replacement [address] [address] [place] [address] [id number] Sheryl Arevalo Self - patient is the insured 4 5 [place] Medicaid [address] [place] [address] [id number] Sheryl Arevalo Self - patient is the insured Medications Administered Medication Instructions Date of Administration Dosage Notes cefTRIAXone Sodium 01/22/2025 1 g Lidocaine HCl 01/22/2025 20 mg Used to rec onstitute Rocephin Medical (General) History Surgical History Surgery Date(Month/Year) c section pulmonary embolism partial hysterectomy Ureteral stent exchange
--- OUTSIDE RECORDS SUMMARY | 2025-02-13 12:09 | XMS_ITS | Clinical Summary ---
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 Gender Identity Not on file Sexual Orientation Not on file Last Filed Vital Signs Vital Sign Reading Time Taken Comments Blood Pressure 117/72 04/08/2024 12:00 PM BUSINESS ANALYTICS FACULTY MEMBER Pulse 70 04/08/2024 12:00 PM BUSINESS ANALYTICS FACULTY MEMBER Temperature 36.7 C (98 F) 04/08/2024 10:22 AM BUSINESS ANALYTICS FACULTY MEMBER Respiratory Rate 16 04/08/2024 12:00 PM BUSINESS ANALYTICS FACULTY MEMBER Oxygen Saturation 97% 04/08/2024 12:00 PM BUSINESS ANALYTICS FACULTY MEMBER Inhaled Oxygen Concentration - - Weight 122 kg (269 lb) 04/08/2024 10:22 AM BUSINESS ANALYTICS FACULTY MEMBER Height 154.9 cm (5' 1 ) 04/08/2024 10:22 AM BUSINESS ANALYTICS FACULTY MEMBER Body Mass Index 50.83 04/08/2024 10:22 AM BUSINESS ANALYTICS FACULTY MEMBER Plan of Treatment Health Maintenance Due Date Last Done Comments HPV VACCINES (2 - 3-dose series) 07/23/2010 06/26/19 11 DTAP/TDAP/TD VACCINES (1 - Tdap) 2012 HEPATITIS B VACCINES (1 of 3 - 19+ 3-dose series) 04/2012 INFLUENZA VACCINE (#1) 2024 [facility] Care Teams Supervisor Film Processing Relationship Specialty Start Date End Date Belem Harper DO [address] [place] [address] PCP - General Family Practice 06/07/10
--- OUTSIDE RECORDS SUMMARY | 2025-02-13 12:09 | XMS_ITS | Encounter Summary ---
Author Organization [employer] Address 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
--- OUTSIDE RECORDS SUMMARY | 2025-02-13 12:09 | XMS_ITS | Encounter Summary ---
Author Organization [employer] Address 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
[2025-02-13 12:48] LABS: Hematocrit 36.6 % (36-47); Hemoglobin 11.40 g/dL (11.27-16.99); Mean Corpuscular HGB Conc 31.1 g/dL (30-55); Mean Corpuscular Hemoglobin 25.3 pg (27-33); Mean Corpuscular Volume 81.2 fl (85-98); Nucleated Red Blood Cells % 0 %; Platelet Count 425 10^3/cmm (157-399); Red Blood Count 4.51 10^6/uL (3.85-5.65); White Blood Count 14.90 10^3/uL (3.29-11.43)
[2025-02-13 13:06] LABS: Anion Gap 18.9 (5-19); Blood Urea Nitrogen 15 mg/dL (6-20); Calcium 8.8 mg/dL (8.5-10.5); Carbon Dioxide 25 mmol/L (22-29); Chloride 100 mmol/L (98-107); Creatinine Clr Calc Pharmacy 112.3456; Glucose 104 mg/dL (65-115); Osmolality Calculated 291 mOsm/kg (285-295); Potassium 3.9 mmol/L (3.5-5.1); Sodium 140 mmol/L (136-145)
[2025-02-13] MEDS: ondansetron 2 mg/ML SDV 2 mL 4 MG IVP (13:28)
[2025-02-13] MEDS: morphine 4 mg/mL SDV 1 mL IVP ×2 (13:28→14:38)
[2025-02-13 13:37] LABS: Glucose Urine UA Negative (Normal)
--- NOTE | 2025-02-13 13:37 | ED_ITS ---
HPI - Female Genitourinary 2 General: Chief complaint: Urogenital-Female Stated complaint: Post-Surgery 02/10 L side pain Time Seen by Provider: 02/13/25 13:09 History of Present Illness: 29-year-old female presents emergency ro om with left flank pain. She has seen Artie yesterday had a renal stent placed she has had continued flank pain since then. Evidently the plan was to do a lithotripsy and then place a stent but they were unable to find the stone per report and did not do the lithotripsy portion she is not having severe pain on the left flank. She not had any fever sweats or chills she is occasionally getting scant hematuria but is actually less than she has had before. Associated symptoms: Deny abdominal pain Related Data Previous Rx's ?Medication ?Instructions ?Recorded omeprazole 40 mg capsule,delayed 40 mg PO DAILY #90 ca ps 11/27/23 release fluticasone propionate 50 See Rx Instructions .Route 0 12/04/23 mcg/actuation nasal .COMPLEX #16 grams spray,suspension albuterol sulfate 90 mcg/actuation 2 puff inhalation Q 6H PRN 10/28/24 aerosol inhaler shortness of breath or wheez ing #8.5 grams ibuprofen 800 mg tablet 800 mg PO Q8H PRN pain #30 t abs 11/22/24 methocarbamol 750 mg tablet 750 mg PO TID #30 tabs 12/09 prednisone 20 mg tablet 60 mg (3 x 20 mg) PO DAILY 5 days 11/22/24 #15 tabs methocarbamol 500 mg tablet 500 mg PO Q8H PRN muscle s pasm #30 11/25/24 tabs methylprednisolone 4 mg tablets in See Rx Instructions PO .COMPLEX 11/25/24 a dose pack (Medrol (Lavon)) #21 ea aripiprazole 5 mg tablet 5 mg PO DAILY #30 tabs 11/29 bupropion HCl 300 mg 24 hr tablet, 300 mg PO QAM #30 t abs 11/29/24 extended release (Wellbutrin XL) sertraline 100 mg tablet 200 mg (2 x 100 mg) PO DAILY #60 11/29/24 tabs trazodone 50 mg tablet 100 mg (2 x 50 mg) PO .HS HI N 11/29/24 insomnia #60 tabs levofloxacin 750 mg tablet 750 mg PO DAILY 5 days #5 t abs 09/10/25 hydrocodone 7.5 mg-acetaminophen 1 tab PO Q8H PRN pain #14 tabs 12/30/24 325 mg tablet ondansetron 4 mg disintegrating 4 mg PO TID PRN nausea and 12/30/24 tablet vomiting #30 tabs hydrocodone 5 mg-acetaminophen 325 1 tab PO Q6H PRN pa in #15 tabs 02/13/25 mg tablet promethazine 25 mg tablet 25 mg PO Q6H PRN nausea and 02/13/25 vomiting #20 tabs Allergies Allergy/AdvReac Type Severity Reaction Status Date / Time duloxetine Allergy sedation Verified 02/13/25 12:00 Review of Systems 2 Const: Denies: fever(s) or chills Card: Denies: chest pain Resp: Denies: dyspnea GI: Denies: abdominal pain : Denies: dysuria, urinary frequency or urinary urgency Musc: Denies: neck pain or back pain Skin/Breast: Denies: rash PFSH ED 2 PFSH: Medical History Psychiatric care Adult BMI 50.0-59.9 kg/sq m Headache Urinary tract infection Nasal congestion Otitis media Encounter for screening for cardiovascular disorders Medication management Obesity COVID-19 Pulmonary embolism Migraine Depression Surgical History History of hysterectomy only 1 ovary History of Family History Other Psychiatric illness Denies family history of Diabetes CAD (coronary artery disease) Chronic kidney disease (CKD) Lung disease Cancer Hypertension Stroke Social History Smoking and tobacco/nicotine status: never used tobacco/nicotine Alcohol intake: never Substance/Drug Use: never Household members: spouse and children Marital status: Number of children: 3 Current gender identity: Female Physical Exam 2 Const: GENERAL APPEARANCE: cooperative ORIENTATION/CONSCIOUSNESS: Yes awake, Yes oriented to person, Yes oriented to place and Yes oriented to time HENMT: COMMON NORMALS: normocephalic, atraumatic and hearing grossly normal bilaterally HEAD & SCALP: normocephalic and atraumatic Resp: COMMON NORMALS: normal respiratory effort, No retractions, No use of accessory muscles and clear to auscultation bilaterally AUSCULTATION: clear to auscultation bilaterally Cardio: COMMON NORMALS: regular rate, regular rhythm and No murmurs present (Cardio) RATE: regular rate RHYTHM: regular rhythm GI: COMMON NORMALS: Soft to palpation and No hepatosplenomegaly present A USCULTATION: Yes normoactive bowel sounds PALPATION: Yes Soft to palpation, No Tenderness to palpation present (GI), No Guarding due to palpation present (GI) and Yes No hepatosplenomegaly present Extremity: COMMON NORMALS: normal to inspection, capillary refill normal, no clubbing, cyanosis or edema, no calf tenderness and no pedal edema Neuro: SENSORIUM/ORIENTATION: Yes oriented to person, Yes oriented to place and Yes oriented to time Skin: COMMON NORMALS: no rashes or lesions noted GENERAL SKIN EXAM: no rashes or lesions noted Course 2 Vital Signs: Vital signs: Vital Signs Temperature 97.6 F 02/13/25 11:55 Pulse Rate 77 02/13/25 15:39 Blood Pressure 157/97 02/13/25 15:39 Pulse Oximetry 99 02/13/25 15:39 Oxygen Delivery Me thod Room Air 02/13/25 11:55 MDM - Female Medical Decision Making Patient seen initially concern for pyelonephritis versus ureteral spasm from her stent. White count slightly elevated she is currently on antibiotics taking Bactrim she has not had a fever. Is normal urine shows few red blood cells mostly squamous cells. I believe her flank pain is from ureteral spasm. Will discharge home continue the Bactrim pain medications given follow-up with urology Medical Records I reviewed the patient's medical records. Lab Data I reviewed the patient's lab results. 02/13/25 12:02/13/25 12:29 Laboratory Results WBC 14.90 10^3/uL (3.29-11.43) H 02/13/25 12: RBC 4.51 10^6/uL (3.85-5.65) 02/13/25 12: Hgb 11.40 g/dL (11.27-16.99) 02/13/25 12: Hct 36.6 % (36-47) 02/13/25 12: MCV 81.2 fl (85-98) L 02/13/25 12: MCH 25.3 pg (27-33) L 02/13/25 12: MCHC 31.1 g/dL (30-55) 02/13/25 12: RDW 16.4 % (12.1-15.1) H 02/13/25 12: Plt Count 425 10^3/cmm (157-399) H 02/13/25 12: MPV 8.6 fL (7.4-10.4) 02/13/25 12: Neut % (Auto) 78.3 % 02/13/25 12: Lymph % (Auto) 14.1 % 02/13/25 12: Mccone % (Auto) 4.8 % 02/13/25 12: Eos % (Auto) 1.7 % 02/13/25 12: Baso % (Auto) 0.7 % 02/13/25 12: Neut # (Auto) 11.66 10^3/uL (1.8-7.7) H 02/13/25 12: Lymph # (Auto) 2.1 10^3/uL (0.8-4.8) 02/13/25 12: Mccone # (Auto) 0.7 10^3/uL (0.2-0.9) 02/13/25 12: Eos # (Auto) 0.3 10^3/uL (0.0-0.8) 02/13/25 12: Baso # (Auto) 0.1 10^3/uL (0.0-0.1) 02/13/25 12: Nucleated RBC % (auto) 0 % 02/13/25 12: Nucleated RBCs # 0.0 /100WBC 02/13/25 12: Sodium 140 mmol/L (136-145) 02/13/25 12: Potassium 3.9 mmol/L (3.5-5.1) 02/13/25 12: Chloride 100 mmol/L (98-107) 02/13/25 12: Carbon Dioxide 25 mmol/L (22-29) 02/13/25 12: Anion Gap 18.9 (5-19) 02/13/25 12: BUN 15 mg/dL (6-20) 02/13/25: Creatinine 0.9 mg/dL (0.5-0.9) 02/13/25 12: GFR Calculation 73.0 mL/min (90-130) L 02/13/25 12: Glucose 104 mg/dL (65-115) 02/13/25 12: Calculated Osmolality 291 mOsm/kg (285-295) 02/13/25 12: Calcium 8.8 mg/dL (8.5-10.5) 02/13/25 12:29 Urine Color [employer] (Yellow) A 02/13/25 13:10 Urine Appearance Cloudy (CLEAR) A 02/13/25 13:10 Urine pH 7.0 (5-7) 02/13/25 13:10 Ur Specific [place] 1.031 (1.005-1.030) H 02/13/25 13:10 Urine Protein Trace (Negative) A 02/13/25 13:10 Urine Glucose (UA) Negative (Normal) 02/13/25 13:10 Urine Ketones Negative (Negative) 02/13/25 13:10 Urine Blood 1+ (Negative) A 02/13/25 13:10 Urine Nitrate (Negative) 02/13/25 13:10 Urine Bilirubin 1+ (Negative) H 02/13/25 13:10 Urine Urobilinogen 1.0 mg/dL (Negative) 02/13/25 13:10 Ur Leukocyte Esterase 1+ (Negative) A 02/13/25 13:10 Urine RBC 6-10 /hpf (0-2) 02/13/25 13:10 Urine WBC 0-5 /hpf (0-5) 02/13/25 13:10 Ur Squamous Epith Cells 11-20 /hpf (0-5) H 02/13/25 13:10 Amorphous Sediment Not Reportable 02/13/25 13:10 Urine Bacteria None seen /hpf (NONE) 02/13/25 13:10 Hyaline Casts 1.21 /lpf 02/13/25 13:10 No radiology studies performed this visit Discharge Plan Discharge Patient Disposition: Home Clinical Impression: Acute flank pain Condition: Stable Prescriptions: New hydrocodone-acetaminophen 5-325 mg tablet 1 tab PO Q6H PRN (Reason: pain) Qty: 15 0RF promethazine 25 mg tablet 25 mg PO Q6H PRN (Reason: nausea and vomiting) Qty: 20 0RF No Action aripiprazole 5 mg tablet 5 mg PO DAILY Qty: 30 2RF sertraline 100 mg tablet 200 mg PO DAILY Qty: 60 2RF trazodone 50 mg tablet 100 mg PO .HS PRN (Reason: insomnia) Qty: 60 2RF bupropion HCl [Wellbutrin XL] 300 mg tablet extended release 24 hr 300 mg PO QAM Qty: 30 2RF levofloxacin 750 mg tablet 750 mg PO DAILY 5 Days Qty: 5 0RF ibuprofen 800 mg tablet 800 mg PO Q8H PRN (Reason: pain) Qty: 30 0RF prednisone 20 mg tablet 60 mg PO DAILY 5 Days Qty: 15 0RF methocarbamol 750 mg tablet 750 mg PO TID Qty: 30 0RF omeprazole 40 mg capsule,delayed release(DR/EC) 40 mg PO DAILY Qty: 90 3RF fluticasone propionate 50 mcg/actuation spray,suspension See Rx Instructions .ROUTE .COMPLEX Qty: 16 1RF Dose Instruction: ADMINISTER 1 SPRAY INTO EACH NOSTRIL TWICE DAILY NEEDED FOR NASAL CONGESTION Rx Instructions: ADMINISTER 1 SPRAY INTO EACH NOSTRIL TWICE DAILY NEEDED FOR NASAL CONGESTION albuterol sulfate 90 mcg/actuation HFA aerosol inhaler 2 puff inhalation Q6H PRN (Reason: shortness of breath or wheezing) Qty: 8.5 0RF methocarbamol 500 mg tablet 500 mg PO Q8H PRN (Reason: muscle spasm) Qty: 30 0RF methylprednisolone [Medrol (Lavon)] 4 mg tablets,dose pack See Rx Instructions .ROUTE .COMPLEX Qty: 21 0RF Rx Instructions: for 6 days hydrocodone-acetaminophen 7.5-325 mg tablet 1 tab PO Q8H PRN (Reason: pain) Qty: 14 0RF ondansetron 4 mg tablet,disintegrating 4 mg PO TID PRN (Reason: nausea and vomiting) Qty: 30 0RF Discharge Orders: Discharge ED (Routine); Ordered 02/13/25 Ordered By: Carlo Harrell Referrals: Kayden Kitchen MD [Primary Care Provider, Family Practice] Discharge Diet: Usual diet Discharge Activity: Increase activity as tolerated Patient Instructions: Opioid Safety, Pain Management, Patient Portal & Mary Instructions Activity Restrictions/Additional Instructions: Thank you for choosing [facility] for your healthcare needs today. It is very important that you follow up as instructed or that you return to the Emergency Department should you have concerns or if your condition changes or worsens in any way. Emergency department visits are focused on emergent conditions, in some cases you may require further evaluation on an outpatient basis. You are seen the emergency room with left-sided flank pain after stent placement. Pain improved with medications given suspect your pain is due to ureteral spasm around the stent. Will be discharged home with hydrocodone to use for pain and promethazine to use as needed. (Please note that included in your discharge packet is information concerning opioid safety and pain management. This information is given to all patients were discharged from the ER regardless of their discharge diagnosis or the medicines they usually take or are prescribed.) Print Language: Mosotho Coding Level of Care Code ED Regulatory Compliance Director for Ankit Powers
[2025-02-13 13:42] LABS: Add Urine Microscopic? YES
[2025-02-13 14:19] LABS: Specific Gravity, Urine 1.031 (1.005-1.030)
[2025-02-13 14:20] LABS: UA Slide Review UA Slide Review Perf
[2025-02-13 14:41] VITALS: BP 157/97; PULSE 74; O2SAT 96
[2025-02-13 15:39] VITALS: BP 157/97; PULSE 77; O2SAT 99
== END 2025-02-13 15:41 | disposition home or self-care (01) ==
PROVIDERS: Emergency Provider Family Medicine; PCP Family Medicine
DX: R10.A2 Flank pain, left side (principal)
CPT/HCPCS: 36415; 80048; 81001; 85025; 96361; 96374; 96375; 96376; 99284; J2270; J2405; J7030

== ENCOUNTER 2025-03-20 08:55 | Observation (INO) | payer MEDICAID, SELFPAY ==
--- OUTSIDE RECORDS SUMMARY | 2025-03-17 08:30 | XMS_ITS ---
Author Organization [facility] Address [address] [place] [address], [place] [address] Care Team Providers Care Technology Auditor Name Role Phone Kayden Kitchen MD Primary Care Provider Unavailab Nj Jasso Unavailable [phone] REASON FOR VISIT DONNA for kidney stones Encounters Encounter Location Date Provider Diagnosis [facility] [address] [place] [address] 03/17/2025 Nj Pereyra Plan Of Treatment Next Appt Details Provider Name:Nj sims, 03/31/2025 10:15:00 AM, [address], [address], [place], [address], Provider Name:Vee House, 04/09/2025 10:00:00 AM, [address], [address], [place], [address], Provider Name:Tyrone Amezcua y, 04/14/2025 01:45:00 PM, [address] [facility], [address], [place], [address], Progress Notes * Cherelle AREVALO RDOB: 4 (29 yo F)Acc No.[id number]:03/17/2025 Patient: Patrick Weekspilo Hdez Provider: Teddy Pereyra MD :1995 A ge:29 Y S ex:Female Date:03/17/2025 Address:[address] [place] [address] [place], [id number] Pcp:Kayden Kitchen MD Subjective: * Chief Complaints: * R US for kidney stones Billing Information: * Procedure Codes: * Electronic signature of Reba Pereyra MD on 03/21/2025 at 11:54 AM WARP TRUCKER Sign off status: Pending * Provider: Teddy Pereyra MD Date: 05/18/2024 Generated for Marylou soares/Dax/Melissasmitting on: 05/22/2024 11:54 AM WARP TRUCKER
[2025-03-20] VITALS (20 sets, daily range): BP systolic 102–171; BP diastolic 67–101; PULSE 78–100; RESP 15–18; TEMP 36.3–37.4; O2SAT 90–99; BMI 52.9; BMI 46.3
--- NOTE | 2025-03-20 09:09 | W.ED.ABDPA2 ---
Documented by User: JUAN PABLO Kaur 03/20/25 13:47 HPI - Abdominal Pain General: Chief Complaint: Abdominal Pain Stated Complaint: Low RT abd pain Time Seen by Provider: 03/20/25 09:09 Source: patient Mode of arrival: ambulatory Limitations: no limitations History of Present Illness: Patient is a 29-year-old female presents to ED today after she was advised to come here from an urgent care facility for further evaluation of right lower quadrant pain. Patient states she began having discomfort yesterday. She feels like pain is centered to her right lower quadrant and radiates into her lower back. She is having quite a bit of nausea and vomiting. No documented fevers but she has felt chillish . She feels like her pain is significantly worse with movement. She does have a history of urolithiasis but feels this is different. She was evaluated at urgent care and sent here due to a concern for possible appendicitis. Patient reports previous hysterectomy with unilateral oophorectomy (she is not sure which ovary she still has). MD elicited complaint: abdominal pain Pertinent past history: kidney stones Onset (ago): day(s) (yesterday) Pain Consistency: constant Location: RLQ Severity: severe Quality: sharp Radiation: back Migration to: no migration Exacerbating factors: movement Relieving factors: nothing Associated Symptoms: Reports chills, nausea and vomiting; Denies change in bowel habits, constipation, diarrhea, dysuria, fever(s) and hematuria Related Data Home Medications ?Medication ?Instructions ?Recorded ?Confirmed methocarbamol 750 mg tablet 750 mg PO TID PRN Muscle Spasm 03/20/25 03/20/25 Previous Rx's ?Medication ?Instructions ?Recorded omeprazole 40 mg capsule,delayed 40 mg PO DAILY #90 caps 11/27/23 release fluticasone propionate 50 See Rx Instructions .Route 12/04/23 mcg/actuation nasal .COMPLEX #16 grams spray,suspension albuterol sulfate 90 mcg/actuation 2 puff inhalation Q6H PRN 10/28/24 aerosol inhaler shortness of breath or wheezing #8.5 grams aripiprazole 5 mg tablet 5 mg PO DAILY #30 tabs 11/29/24 bupropion HCl 300 mg 24 hr tablet, 300 mg PO QAM #30 tabs 11/29/24 extended release (Wellbutrin XL) sertraline 100 mg tablet 200 mg (2 x 100 mg) PO DAILY #60 11/29/24 tabs trazodone 50 mg tablet 100 mg (2 x 50 mg) PO .HS PRN 11/29/24 insomnia #60 tabs ondansetron 4 mg disintegrating 4 mg PO TID PRN nausea and 12/30/24 tablet vomiting #30 tabs hydrocodone 5 mg-acetaminophen 325 1 tab PO Q6H PRN pain #15 tabs 25 mg tablet promethazine 25 mg tablet 25 mg PO Q6H PRN nausea and 02/13/25 vomiting #20 tabs ibuprofen 800 mg tablet 800 mg PO Q8H PRN pain #30 tabs 02/21/25 Allergies Allergy/AdvReac Type Severity Reaction Status Date / Time duloxetine Allergy sedation Verified 03/20/25 08:31 Review of Systems Const: Reports: chills; Denies: fever(s), body aches, fatigue or malaise Card: Denies: chest pain Resp: Denies: dyspnea GI: Reports: abdominal pain, nausea and vomiting; Denies: diarrhea, constipation or change in bowel habits : Denies: flank pain, difficulty voiding, dysuria, urinary frequency, urinary urgency, urinary hesitancy or hematuria Musc: Reports: back pain; Denies: neck pain, extremity pain, extremity swelling, joint pain, joint swelling or joint redness Skin/Breast: Denies: rash Neuro: Denies: headache(s), numbness in extremities, weakness in extremities or sensory changes PFSH ED PFSH: Medical History Strain of muscle, fascia and tendon at neck level, initial encounter Psychiatric care Adult BMI 50.0-59.9 kg/sq m Headache Urinary tract infection Nasal congestion Otitis media Encounter for screening for cardiovascular disorders Medication management Obesity COVID-19 Pulmonary embolism Migraine Depression Surgical History History of hysterectomy only 1 ovary History of Family History Other Psychiatric illness Denies family history of Diabetes CAD (coronary artery disease) Chronic kidney disease (CKD) Lung disease Cancer Hypertension Stroke Social History Smoking and tobacco/nicotine status: never used tobacco/nicotine Alcohol intake: never Substance/Drug Use: never Household members: spouse and children Marital status: Number of children: 3 Current gender identity: Female Physical Exam Const: COMMON NORMALS: no acute distress, patient oriented x3, no limitations and alert GENERAL APPEARANCE: cooperative NUTRITIONAL APPEARANCE: obese morbidly obese (BMI 52.8) ORIENTATION/CONSCIOUSNESS: Yes awake, Yes oriented to person, Yes oriented to place and Yes oriented to time Eye: COMMON NORMALS: no scleral icterus Resp: COMMON NORMALS: normal respiratory effort and clear to auscultation bilaterally AUSCULTATION: clear to auscultation bilaterally Cardio: COMMON NORMALS: regular rate and regular rhythm RATE: regular rate RHYTHM: regular rhythm GI: COMMON NORMALS: Normal to inspection, nondistended, normoactive bowel sounds present, Soft to palpation and no masses INSPECTION: Yes normal to inspection AUSCULTATION: Yes normoactive bowel sounds PALPATION: Yes Soft to palpation, Yes Tenderness to palpation present (GI) Details: RLQ, No Guarding due to palpation present (GI), No Rigid due to palpation and Yes Other GI palpation findings present (+ specialized testing for appendicitis ) : COMMON NORMALS: Yes no CVA tenderness BLADDER/KIDNEY EXAM: Yes no CVA tenderness Back/Pelvis: COMMON NORMALS: no CVA tenderness, thoracic and lumbar spine normal to inspection, no thoracic nor lumbar tenderness, thoraco-lumbar ROM normal and straight leg raise negative bilaterally LUMBAR SPINE/LOWER BACK: Yes paraspinal muscle tenderness (R lower back pain) Lumbar paraspinal muscle tenderness: right PELVIS: Yes buttocks normal and No sciatic notch tenderness SACROILIAC JOINTS: Yes SI joints normal SACRUM: no tenderness COCCYX: no tenderness Extremity: GENERAL: Yes normal exam except as noted Neuro: [place] COMA SCALE: document GCS findings [place] coma scale eye opening: Spontaneous [place] coma scale verbal response: Orientated [place] coma scale motor response: Obey commands [place] coma scale total score: 15 COMMON NORMALS: patient oriented x3 and gait normal SENSORIUM/ORIENTATION: Yes alert, Yes oriented to person, Yes oriented to place and Yes oriented to time Skin: COMMON NORMALS: no rashes or lesions noted GENERAL SKIN EXAM: no rashes or lesions noted Course Consultations: Consultation #1: Dr. Zepeda-patient's urologist in [place], [place]-reviewed CT imaging via [employer] and feels this is a resolving hematoma which can occur with the procedure he performed on patient-nothing to do from our end-will follow up on 03/31 as scheduled Consultation #2: Dr. Boogie-came and evaluated patient here in ED and will plan on OR around 4pm after clinic Vital Signs: Vital signs: Vital Signs Temperature 97.4 F L 03/20/25 17:02 Pulse Rate 89 03/20/25 17:02 Respiratory Rate 17 03/20/25 17:02 Blood Pressure 166/98 03/20/25 17:02 Pulse Oximetry 95 03/20/25 17:02 Oxygen Delivery Me thod Room Air 03/20/25 17:02 MDM - Abdominal Pain Medical Decision Making Patient is a 29-year-old female here for right lower quadrant/pelvic pain beginning yesterday. She was found to have a large 5 x 5 right ovarian cyst causing torsion. She was evaluated here by Dr. Boogie and will be taken to the OR later this afternoon. Dr. Harrell aware of patient and will place admit orders. Of note, on her CT scan she was found to have a subcapsular collection on her left kidney. She has no symptoms. I did discuss with her urologist Dr. Zepeda who reviewed CT imaging and said this was a resolving hematoma and nothing to do at this time. He will follow-up with patient on 03/31 as scheduled. Medical Records I reviewed the patient's medical records. Lab Data I reviewed the patient's lab results. 03/20/25 09:20 03/20/25 09:20 Labs/Radiology: Radiology Impressions Abdomen/Pelvis CT 03/20/25 09:17 IMPRESSION: 1. Large midline RIGHT ovarian cyst measuring 4.8 x 5.4 cm with a small amount of surrounding fluid and thick wall. This could be further evaluated with ultrasound to exclude torsion considering acute pain presentation. 2. Prior hysterectomy with LEFT oophorectomy. 3. Subcapsular LEFT renal low-attenuation collection with surrounding thick wall suspicious for liquefied hematoma deforming the LEFT kidney. Abscess less likely, although hematoma is prone to infection. Heterogeneous renal parenchymal enhancement suspicious for pyelonephritis or renal infarcts. Subcapsular mass effect on the LEFT kidney can result in ischemia. 4. Removal of the LEFT double-J ureteral stent. No hydronephrosis. Recommend urology evaluation 5. Fatty liver. 6. Normal appendix in the RIGHT lower quadrant. 7. Recommend chest CT in 6 months to evaluate pulmonary nodules Notified JUAN PABLO Kaur at 03/20/2025 11:09 AM. Pelvic/Transvag US 03/20/25 11:00 IMPRESSION: 1. Abnormal RIGHT adnexa. Findings are highly suspicious for RIGHT adnexal/ovarian torsion. There is a large thick walled cyst and a large solid component which are new since the CT of 12/30/2024 and the ovary is more centrally positioned. 2. Small amount of hemoperitoneum. 3. Notified JUAN PABLO Kaur at 03/20/2025 12:24 PM. Laboratory Results WBC 15.18 10^3/uL (3.29-11.43) H 03/20/25 09:20 RBC 4.80 10^6/uL (3.85-5.65) 03/20/25 09:20 Hgb 12.40 g/dL (11.27-16.99) 03/20/25 09:20 Hct 38.7 % (36-47) 03/20/25 09:20 MCV 80.6 fl (85-98) L 03/20/25 09:20 MCH 25.8 pg (27-33) L 03/20/25 09:20 MCHC 32.0 g/dL (30-55) 03/20/25 09:20 RDW 16.0 % (12.1-15.1) H 03/20/25 09:20 Plt Count 340 10^3/cmm (157-399) 03/20/25 09:20 MPV 8.7 fL (7.4-10.4) 03/20/25 09:20 Neut % (Auto) 79.8 % 03/20/25 09:20 Lymph % (Auto) 12.8 % 03/20/25 09:20 [place] % (Auto) 4.7 % 03/20/25 09:20 Eos % (Auto) 1.8 % 03/20/25 09:20 Baso % (Auto) 0.6 % 03/20/25 09:20 Neut # (Auto) 12.12 10^3/uL (1.8-7.7) H 03/20/25 09:20 Lymph # (Auto) 1.9 10^3/uL (0.8-4.8) 03/20/25 09:20 [place] # (Auto) 0.7 10^3/uL (0.2-0.9) 03/20/25 09:20 Eos # (Auto) 0.3 10^3/uL (0.0-0.8) 03/20/25 09:20 Baso # (Auto) 0.1 10^3/uL (0.0-0.1) 03/20/25 09:20 Nucleated RBC % (auto) 0 % 03/20/25 09:20 Nucleated RBCs # 0.0 /100WBC 03/20/25 09:20 Sodium 138 mmol/L (136-145) 03/20/25 09:20 Potassium 3.5 mmol/L (3.5-5.1) 03/20/25 09:20 Chloride 100 mmol/L (98-107) 03/20/25 09:20 Carbon Dioxide 25 mmol/L (22-29) 03/20/25 09:20 Anion Gap 16.5 (5-19) 03/20/25 09:20 BUN 12 mg/dL (6-20) 03/20/25 09:20 Creatinine 0.7 mg/dL (0.5-0.9) 03/20/25 09:20 GFR Calculation 97.6 mL/min (90-130) 03/20/25 09:20 Glucose 103 mg/dL (65-115) 03/20/25 09:20 Calculated Osmolality 286 mOsm/kg (285-295) 03/20/25 09:20 Calcium 9.0 mg/dL (8.5-10.5) 03/20/25 09:20 Total Bilirubin 0.4 mg/dL (0.15-1.2) 03/20/25 09:20 AST 13 U/L (0-32) 03/20/25 09:20 ALT 14 U/L (0-33) 03/20/25 09:20 Alkaline Phosphatase 93 U/L (35-105) 03/20/25 09:20 Total Protein 7.5 g/dL (6.6-8.7) 03/20/25 09:20 Albumin 3.7 g/dL (3.5-5.2) 03/20/25 09:20 Globulin 3.8 g/dL (1.3-4.6) 03/20/25 09:20 Lipase 18 U/L (13-60) 03/20/25 09:20 HCG, Qual Negative (Negative) 03/20/25 09:20 Urine Color Dark yellow (Yellow) A 03/20/25 09:35 Urine Appearance Cloudy (CLEAR) A 03/20/25 09:35 Urine pH 5.5 (5-7) 03/20/25 09:35 Ur Specific [place] 1.026 (1.005-1.030) 03/20/25 09:35 Urine Protein Trace (Negative) A 03/20/25 09:35 Urine Glucose (UA) Negative (Normal) 03/20/25 09:35 Urine Ketones Negative (Negative) 03/20/25 09:35 Urine Blood Negative (Negative) 03/20/25 09:35 Urine Nitrate Negative (Negative) 03/20/25 09:35 Urine Bilirubin Negative (Negative) 03/20/25 09:35 Urine Urobilinogen 0.2 mg/dL (Negative) 03/20/25 09:35 Ur Leukocyte Esterase Negative (Negative) 03/20/25 09:35 Urine RBC None /hpf (0-2) 03/20/25 09:35 Urine WBC 0-4 /hpf (0-5) H 03/20/25 09:35 Ur Squamous Epith Cells 5-10 /hpf (0-5) H 03/20/25 09:35 Amorphous Sediment Not Reportable 03/20/25 09:35 Urine Bacteria 1+ /hpf (NONE) H 03/20/25 09:35 All radiology interpretation(s) finalized by discharge Discharge Plan Discharge Patient Disposition: Admitted As Inpatient Admit Provider: Antonino Boogie Clinical Impression: Torsion of right ovary, Cyst of right ovary, Hematoma of left kidney Condition: Stable Coding Level of Care Code ED [employer] for [employer] Documented by User: Carlo Harrell DO 03/20/25 17:04 HPI - Abdominal Pain General: Chief Complaint: Abdominal Pain Stated Complaint: Low RT abd pain Time Seen by Provider: 03/20/25 09:09 Related Data Home Medications ?Medication ?Instructions ?Recorded ?Confirmed methocarbamol 750 mg tablet 750 mg PO TID PRN Muscle Spasm 03/20/25 03/20/25 Previous Rx's ?Medication ?Instructions ?Recorded omeprazole 40 mg capsule,delayed 40 mg PO DAILY #90 caps 11/27/23 release fluticasone propionate 50 See Rx Instructions .Route 12/04/23 mcg/actuation nasal .COMPLEX #16 grams spray,suspension albuterol sulfate 90 mcg/actuation 2 puff inhalation Q6H PRN 10/28/24 aerosol inhaler shortness of breath or wheezing #8.5 grams aripiprazole 5 mg tablet 5 mg PO DAILY #30 tabs 11/29/24 bupropion HCl 300 mg 24 hr tablet, 300 mg PO QAM #30 tabs 11/29/24 extended release (Wellbutrin XL) sertraline 100 mg tablet 200 mg (2 x 100 mg) PO DAILY #60 11/29/24 tabs trazodone 50 mg tablet 100 mg (2 x 50 mg) PO .HS PRN 11/29/24 insomnia #60 tabs ondansetron 4 mg disintegrating 4 mg PO TID PRN nausea and 12/30/24 tablet vomiting #30 tabs hydrocodone 5 mg-acetaminophen 325 1 tab PO Q6H PRN pain #15 tabs 02/13/25 mg tablet promethazine 25 mg tablet 25 mg PO Q6H PRN nausea and 02/13/25 vomiting #20 tabs ibuprofen 800 mg tablet 800 mg PO Q8H PRN pain #30 tabs 02/21/25 Allergies Allergy/AdvReac Type Severity Reaction Status Date / Time duloxetine Allergy sedation Verified 03/20/25 08:31 [facility] ED PFS: Medical History Strain of muscle, fascia and tendon at neck level, initial encounter Psychiatric care Adult BMI 50.0-59.9 kg/sq m Headache Urinary tract infection Nasal congestion Otitis media Encounter for screening for cardiovascular disorders Medication management Obesity COVID-19 Pulmonary embolism Migraine Depression Surgical History History of hysterectomy only 1 ovary History of Family History Other Psychiatric illness Denies family history of Diabetes CAD (coronary artery disease) Chronic kidney disease (CKD) Lung disease Cancer Hypertension Stroke Social History Smoking and tobacco/nicotine status: never used tobacco/nicotine Alcohol intake: never Substance/Drug Use: never Household members: spouse and children Marital status: Number of children: 3 Current gender identity: Female Physical Exam Neuro: ELMIRA COMA SCALE: document GCS findings [place] coma scale total score: 15 Course Vital Signs: Vital signs: Vital Signs Temperature 97.4 F L 03/20/25 17:02 Pulse Rate 89 03/20/25 17:02 Respiratory Rate 17 03/20/25 17:02 Blood Pressure 166/98 03/20/25 17:02 Pulse Oximetry 95 03/20/25 17:02 Oxygen Delivery Me thod Room Air 03/20/25 17:02 MDM - Abdominal Pain Medical Decision Making Patient is a 29-year-old female here for right lower quadrant/pelvic pain beginning yesterday. She was found to have a large 5 x 5 right ovarian cyst causing torsion. She was evaluated here by Dr. Boogie and will be taken to the OR later this afternoon. Dr. Harrell aware of patient and will place admit orders. Of note, on her CT scan she was found to have a subcapsular collection on her left kidney. She has no symptoms. I did discuss with her urologist Dr. Zepeda who reviewed CT imaging and said this was a resolving hematoma and nothing to do at this time. He will follow-up with patient on 03/31 as scheduled. Chart reviewed and patient discussed with midlevel. Agree with assessment and plan. Lab Data 03/20/25 09:20 03/20/25 09:20 Labs/Radiology: Radiology Impressions Abdomen/Pelvis CT 03/20/25 09:17 IMPRESSION: 1. Large midline RIGHT ovarian cyst measuring 4.8 x 5.4 cm with a small amount of surrounding fluid and thick wall. This could be further evaluated with ultrasound to exclude torsion considering acute pain presentation. 2. Prior hysterectomy with LEFT oophorectomy. 3. Subcapsular LEFT renal low-attenuation collection with surrounding thick wall suspicious for liquefied hematoma deforming the LEFT kidney. Abscess less likely, although hematoma is prone to infection. Heterogeneous renal parenchymal enhancement suspicious for pyelonephritis or renal infarcts. Subcapsular mass effect on the LEFT kidney can result in ischemia. 4. Removal of the LEFT double-J ureteral stent. No hydronephrosis. Recommend urology evaluation 5. Fatty liver. 6. Normal appendix in the RIGHT lower quadrant. 7. Recommend chest CT in 6 months to evaluate pulmonary nodules Notified JUAN PABLO Kaur at 03/20/2025 11:09 AM. Pelvic/Transvag US 03/20/25 11:00 IMPRESSION: 1. Abnormal RIGHT adnexa. Findings are highly suspicious for RIGHT adnexal/ovarian torsion. There is a large thick walled cyst and a large solid component which are new since the CT of 12/30/2024 and the ovary is more centrally positioned. 2. Small amount of hemoperitoneum. 3. Notified JUAN PABLO Kaur at 03/20/2025 12:24 PM. Laboratory Results WBC 15.18 10^3/uL (3.29-11.43) H 03/20/25 09:20 RBC 4.80 10^6/uL (3.85-5.65) 03/20/25 09:20 Hgb 12.40 g/dL (11.27-16.99) 03/20/25 09:20 Hct 38.7 % (36-47) 03/20/25 09:20 MCV 80.6 fl (85-98) L 03/20/25 09:20 MCH 25.8 pg (27-33) L 03/20/25 09:20 MCHC 32.0 g/dL (30-55) 03/20/25 09:20 RDW 16.0 % (12.1-15.1) H 03/20/25 09:20 Plt Count 340 10^3/cmm (157-399) 03/20/25 09:20 MPV 8.7 fL (7.4-10.4) 03/20/25 09:20 Neut % (Auto) 79.8 % 03/20/25 09:20 Lymph % (Auto) 12.8 % 03/20/25 09:20 [place] % (Auto) 4.7 % 03/20/25 09:20 Eos % (Auto) 1.8 % 03/20/25 09:20 Baso % (Auto) 0.6 % 03/20/25 09:20 Neut # (Auto) 12.12 10^3/uL (1.8-7.7) H 03/20/25 09:20 Lymph # (Auto) 1.9 10^3/uL (0.8-4.8) 03/20/25 09:20 [place] # (Auto) 0.7 10^3/uL (0.2-0.9) 03/20/25 09:20 Eos # (Auto) 0.3 10^3/uL (0.0-0.8) 03/20/25 09:20 Baso # (Auto) 0.1 10^3/uL (0.0-0.1) 03/20/25 09:20 Nucleated RBC % (auto) 0 % 03/20/25 09:20 Nucleated RBCs # 0.0 /100WBC 03/20/25 09:20 Sodium 138 mmol/L (136-145) 03/20/25 09:20 Potassium 3.5 mmol/L (3.5-5.1) 03/20/25 09:20 Chloride 100 mmol/L (98-107) 03/20/25 09:20 Carbon Dioxide 25 mmol/L (22-29) 03/20/25 09:20 Anion Gap 16.5 (5-19) 03/20/25 09:20 BUN 12 mg/dL (6-20) 03/20/25 09:20 Creatinine 0.7 mg/dL (0.5-0.9) 03/20/25 09:20 GFR Calculation 97.6 mL/min (90-130) 03/20/25 09:20 Glucose 103 mg/dL (65-115) 03/20/25 09:20 Calculated Osmolality 286 mOsm/kg (285-295) 03/20/25 09:20 Calcium 9.0 mg/dL (8.5-10.5) 03/20/25 09:20 Total Bilirubin 0.4 mg/dL (0.15-1.2) 03/20/25 09:20 AST 13 U/L (0-32) 03/20/25 09:20 ALT 14 U/L (0-33) 03/20/25 09:20 Alkaline Phosphatase 93 U/L (35-105) 03/20/25 09:20 Total Protein 7.5 g/dL (6.6-8.7) 03/20/25 09:20 Albumin 3.7 g/dL (3.5-5.2) 03/20/25 09:20 Globulin 3.8 g/dL (1.3-4.6) 03/20/25 09:20 Lipase 18 U/L (13-60) 03/20/25 09:20 HCG, Qual Negative (Negative) 03/20/25 09:20 Urine Color Dark yellow (Yellow) A 03/20/25 09:35 Urine Appearance Cloudy (CLEAR) A 03/20/25 09:35 Urine pH 5.5 (5-7) 03/20/25 09:35 Ur Specific [place] 1.026 (1.005-1.030) 03/20/25 09:35 Urine Protein Trace (Negative) A 03/20/25 09:35 Urine Glucose (UA) Negative (Normal) 03/20/25 09:35 Urine Ketones Negative (Negative) 03/20/25 09:35 Urine Blood Negative (Negative) 03/20/25 09:35 Urine Nitrate Negative (Negative) 03/20/25 09:35 Urine Bilirubin Negative (Negative) 03/20/25 09:35 Urine Urobilinogen 0.2 mg/dL (Negative) 03/20/25 09:35 Ur Leukocyte Esterase Negative (Negative) 03/20/25 09:35 Urine RBC None /hpf (0-2) 03/20/25 09:35 Urine WBC 0-4 /hpf (0-5) H 03/20/25 09:35 Ur Squamous Epith Cells 5-10 /hpf (0-5) H 03/20/25 09:35 Amorphous Sediment Not Reportable 03/20/25 09:35 Urine Bacteria 1+ /hpf (NONE) H 03/20/25 09:35 Discharge Plan Discharge Patient Disposition: Admitted As Inpatient Admit Provider: Antonino Boogie Clinical Impression: Torsion of right ovary, Cyst of right ovary, Hematoma of left kidney Condition: Stable Coding Level of Care Code ED [employer] for [employer]
--- NOTE | 2025-03-20 09:17 | CT_ITS ---
WS: [id number] CT ABDOMEN PELVIS TECHNIQUE: Contrast-enhanced CT of the abdomen and pelvis with coronal and sagittal reformatted images. CLINICAL INFORMATION: RLQ pain COMPARISON: None. DLP: 1330.[address] scans at [facility] use at least one of these dose optimization techniques: automated exposure control; mA and/or kV adjustment per patient size (includes targeted exams where dose is matched to clinical indication); or iterative reconstruction. FINDINGS: Previously described LEFT ureteral stent has been removed compared to the prior study. No obstructing LEFT renal or ureteral calculi. Normal RIGHT renal parenchymal enhancement. Small RIGHT renal cyst. Heterogeneous coarse striated enhancement involving the LEFT kidney compatible with pyelonephritis or renal infarcts. In addition there is a subcapsular thick walled collection with mass effect and deformation of the LEFT kidney. Collection measures approximately 5.6 x 3.8 x 7.5 cm. This most likely re presents liquefied hematoma however superimposed developing abscess or infection not entirely excluded. No significant surrounding induration. Mass effect on the LEFT kidney can result in ischemia and renal infarcts. Large RIGHT ovarian cyst measuring 5.8 x 5.4 cm with a small amount of surrounding fluid. This could be further evaluated with ultrasound to exclude torsion. Evidence of prior hysterectomy and probably LEFT oophorectomy. Fatty liver. Normal portal vein and splenic vein. Diffuse fatty infiltration. Several partially visualized semisolid nodules in the RIGHT greater than LEFT upper lobes. Recommend chest CT follow-up in 6 months. These appear similar in appearance to the prior CT 11/29/2024. Normal portal vein and splenic vein. Normal GE junction. Adrenal glands are normal. Normal pancreatic parenchymal enhancement. Normal gallbladder. Normal caliber abdominal aorta. Tiny fat-containing umbilical hernia. Normal spleen. Normal sigmoid colon. Normal appendix in the RIGHT lower quadrant. Normal gallbladder. CT/CT abdomen pelvis w con* [id number] IMPRESSION: 1. Large midline RIGHT ovarian cyst measuring 4.8 x 5.4 cm with a small amount of surrounding fluid and thick wall. This could be further evaluated with ultr asound to exclude torsion considering acute pain presentation. 2. Prior hysterectomy with LEFT oophorectomy. 3. Subcapsular LEFT renal low-attenuation collection with surrounding thick wa ll suspicious for liquefied hematoma deforming the LEFT kidney. Abscess less li francisco javier, although hematoma is prone to infection. Heterogeneous renal parenchymal enhancement suspicious for pyelonephritis or renal infarcts. Subcapsular mass e ffect on the LEFT kidney can result in ischemia. 4. Removal of the LEFT double-J ureteral stent. No hydronephrosis. Recommend u rology evaluation 5. Fatty liver. 6. Normal appendix in the RIGHT lower quadrant. 7. Recommend chest CT in 6 months to evaluate pulmonary nodules Notified JUAN PABLO Kaur at 03/20/2025 11:09 AM.
--- OUTSIDE RECORDS SUMMARY | 2025-03-20 09:19 | XMS_ITS | Clinical Summary ---
Author Organization [facility] Address [address] 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 Gender Identity Not on file Sexual Orientation Not on file Last Filed Vital Signs Vital Sign Reading Time Taken Comments Blood Pressure 117/72 04/08/2024 12:00 PM ELECTROPLATER HELPER Pulse 70 04/08/2024 12:00 PM ELECTROPLATER HELPER Temperature 36.7 C (98 F) 04/08/2024 10:22 AM ELECTROPLATER HELPER Respiratory Rate 16 04/08/2024 12:00 PM ELECTROPLATER HELPER Oxygen Saturation 97% 04/08/2024 12:00 PM ELECTROPLATER HELPER Inhaled Oxygen Concentration - - Weight 122 kg (269 lb) 04/08/2024 10:22 AM ELECTROPLATER HELPER Height 154.9 cm (5' 1 ) 04/08/2024 10:22 AM ELECTROPLATER HELPER Body Mass Index 50.83 04/08/2024 10:22 AM ELECTROPLATER HELPER Plan of Treatment Health Maintenance Due Date Last Done Comments HPV VACCINES (2 - 3-dose series) 07/23/2010 06/26/19 11 DTAP/TDAP/TD VACCINES (1 - Tdap) 2012 HEPATITIS B VACCINES (1 of 3 - 19+ 3-dose series) 04/2012 INFLUENZA VACCINE (#1) 2024 Insurance [employer] Care Teams Accredited Pharmacy Technician Relationship Specialty Start Date End Date Belem Harper DO [address] [place] [address] PCP - General Family Practice 06/07/10
--- OUTSIDE RECORDS SUMMARY | 2025-03-20 09:19 | XMS_ITS | Data Portability ---
Author Organization [facility] [place], [facility] Address [address] [place] [address] Assessment No assessment recorded. Plan of Treatment Reminders Order Date Submit Date Provider Last Modified By Organization Details Last Modified Time Details Appointments None recorded. Lab None recorded. Referral None recorded. Procedures None recorded. Surgeries None recorded. Imaging None recorded. Medication Orders amoxicilli n 875 mg tablet 2023 024 [id number], [address], [address], 4 13:29:37 Patient TargetsNo targets recorded. Patient InstructionsNo instructions recorded. Reason for Referral None Reported. Problems Name Problem SNOMED Code Status Onset Date Resolution Date Notes Provider Name and Address Organization Details Recorded Time Depressive disorder [id number] Active 2011 DEPRESSIO N; Recorded 2 2:02PM by Sanjana Boswell RN, Office Visit; Promoted; acuity set as *; Not Available [facility] 3 03:16:18 Dental abscess 669128178 Active 2023 Renny Beckham, DO [address] [place], [address] , [facility] 4 13:30:14 Problem Notes None recorded. Procedures Surgical History Date Name Laterality Status Provider Name and Address Organization Details Recorded Time section completed [facility] 13:09:36 Imaging Results None recorded. Procedure Notes None recorded. Medical Equipment None Reported. Allergies Allergen ID Allergen Name Allergen Category Reaction Reaction Severity Criticality Documentation Date Start Date Code Code System Note Provider Name and Address Organization Details Recorded Time 20566 duloxetin e medicatio n Not available Not available Not available 12/25/2023 20624 RxNorm Geetha deluca [facility] 4 13:08:46 Medications Name Sig Start Date Stop Date Status Note LastModified by Organization Details LastModified Time metformin 500 mg tablet TAKE 1 TABLET BY MOUTH TWICE DAILY WITH MEALS active Not Available Not Available No t Available fluconazole 150 mg tablet TAKE 1 TABLET BY MOUTH EVERY 3 DAYS FOR 2 DOSES active Not Available Not Available No t Available omeprazole 40 mg capsule,lu yed release TAKE 1 CAPSULE BY MOUTH EVERY DAY active Not Available Not Available No t Available amoxicillin 500 mg tablet TAKE 2 TABLETS BY MOUTH TWICE DAILY FOR 10 DAYS active Not Available Not Available No t Available amoxicillin 875 mg tablet TAKE 1 TABLET BY MOUTH TWICE A DAY FOR 10 DAYS active Not Available Not Available No t Available ibuprofen 600 mg tablet TAKE 1 TABLET BY MOUTH EVERY 8 HOURS NEEDED FOR PAIN active Not Available Not Available No t Available fluticasone propionate 50 mcg/actuatio n nasal spray,suspen deidre ADMINISTER 1 SPRAY INTO EACH NOSTRIL TWICE DAILY NEEDED NASAL CONGESTION active Not Available Not Available N ot Available sertraline active Not Available Not Av ailable Not Available omeprazole active Not Available Not Av ailable Not Available metformin active Not Available Not Aydee ilable Not Available Celebrex active Not Available Not Avai lable Not Available FeroSul 325 mg (65 mg iron) tablet TAKE 1 TABLET BY MOUTH DAILY active Not Available Not Available Not Available Vitals Date Recorded Body weight Body mass index (BMI) Body height Oxygen saturation Heart rate Respiratory rate Body temperature Systolic And Diastolic Provider Name and Address Organization Details Last Updated DateTime 4 215606. 9 g 52 kg/m2 154.94 cm 98 % 88 /min 16 /min 98.5 [degF] 118/60 mm[Hg] Geetha Moreno [facility] 4 13:07:53 Date Recorded Body height Body mass index (BMI) Body weight Oxygen saturation Heart rate Body temperature Systolic And Diastolic Provider Name and Address Organization Details Last Updated DateTime 4 154.94 cm 52.5 kg/m2 961129. 68 g 98 % 90 /min 98.2 [degF] 180/110 mm[Hg] Geetha Moreno [facility] 4 15:58:49 Social History None recorded. Functional Status None recorded. Mental Status None recorded. Family History Nothing Reported. Medical History No medical history recorded. Gynecological HistoryNo gynecological history recorded. Obstetrics History GPAL:G 0 P 0 0 0 0 Past Encounters Encounter ID Performer Location Encounter Start Date Encounter Closed Date Diagnosis/Indication Diagnosis SNOMED-CT Code Diagnosis ICD10 Code Diagnosis IMO Codes Diagnosis Note [id number] Renny Beckham DO [facility] ([facility]) [address] [place] [phone] 12/25/2023 12:58:06 12/25/2023 13:26:54 Dental abscess [id number] K04.7 abx, tylenol, pt to make dental appt in the nxt 10 days. Return to office with no improvemen t or any problems. Go to ER with severe worsening or severe problems. [id number] SAMUEL DURAN [facility] ([facility]) [address] [place] [phone] 03/24/2024 15:53:52 03/24/2024 16:12:31 Health Concerns Section Related Observation LastModified by Organization Detai ls LastModified Time None Recorded Concern Status LastModified by Organization Details LastModified Time None Recorded Advance Directives Directive None Recorded Payers Insurance Date Sequence Insurance Name Policy Number Policy Ramires Covered Member ID Ramires Member ID Guarantor Name 12/25/2023 1 *SELF PAY* Brendon Arevalo 03/24/2024 1 [place] Cherelle Arevalo [id number] Cherelle Arevalo 03/24/2024 [place] [facility] Cherelle Arevalo [id number] Cherelle Arevalo Notes Date Note Type Note Provider Name and Address Organization Details Recorded Time 12/25/2023 text/html Dental painRepor shirley by Patient walk in patientpatient is here today for upper right side mouth pain from a toothache that started 3 days and is getting worse. Renny Beckham, DO [address] [place] [address], [phone], [facility] Mahamed [facility] [place], [place] 12/25/2023 13:30:38 03/24/2024 text/html sent to the ER for heart racing, blood pressure elevated and dizzy Geetha deluca [place] Mahamed [facility], [place] 03/24/2024 16:02:14 OBGyn Episode No OBEpisode recorded.
[2025-03-20 09:28] LABS: Hematocrit 38.7 % (36-47); Hemoglobin 12.40 g/dL (11.27-16.99); Mean Corpuscular HGB Conc 32.0 g/dL (30-55); Mean Corpuscular Hemoglobin 25.8 pg (27-33); Mean Corpuscular Volume 80.6 fl (85-98); Nucleated Red Blood Cells % 0 %; Platelet Count 340 10^3/cmm (157-399); Red Blood Count 4.80 10^6/uL (3.85-5.65); White Blood Count 15.18 10^3/uL (3.29-11.43)
[2025-03-20] MEDS: morphine 4 mg/mL SDV 1 mL IVP ×3 (09:33→15:23)
[2025-03-20] MEDS: ondansetron 2 mg/ML SDV 2 mL 4 MG IVP ×2 (09:34→15:23)
[2025-03-20 10:02] LABS: Glucose Urine UA Negative (Normal); Nitrate Urine Negative (Negative); Specific Gravity, Urine 1.026 (1.005-1.030)
[2025-03-20 10:02] LABS: HCG, Serum Qual Negative (Negative)
[2025-03-20 10:07] LABS: Add Urine Microscopic? YES; Universal Test for UA Present (0)
[2025-03-20 10:09] LABS: Alanine Aminotransferase 14 U/L (0-33); Albumin Level 3.7 g/dL (3.5-5.2); Alkaline Phosphatase 93 U/L (35-105); Anion Gap 16.5 (5-19); Aspartate Amino Transferase 13 U/L (0-32); Blood Urea Nitrogen 12 mg/dL (6-20); Calcium 9.0 mg/dL (8.5-10.5); Carbon Dioxide 25 mmol/L (22-29); Chloride 100 mmol/L (98-107); Globulin 3.8 g/dL (1.3-4.6); Glucose 103 mg/dL (65-115); Lipase 18 U/L (13-60); Osmolality Calculated 286 mOsm/kg (285-295); Potassium 3.5 mmol/L (3.5-5.1); Sodium 138 mmol/L (136-145); Total Protein 7.5 g/dL (6.6-8.7)
[2025-03-20 10:20] LABS: UA Manual Slide Review YES
[2025-03-20] MEDS: iohexol 350 mg/mL 500 mL Btl (per mL) IV (10:28)
--- NOTE | 2025-03-20 11:00 | US_ITS ---
WS: [id number] US pelvis lmt w transvag HISTORY: R large ovarian cyst; r/o ovarian torsion COMPARISON: CT 03/20/2025, 12/30/2024 Prior hysterectomy and LEFT oophorectomy. Right ovary: 6.6 cm x 5.6 cm x 6.3 cm. Enlarged RIGHT ovary. The provided measurements do not include the entire ovarian complex. The provided measurements in include predominantly the large cyst with thick wall. There is a solid component measuring 4.1 x 6.2 cm which is adjacent to the large thick-wal led cyst that has developed. There is abnormal vascularity in both the solid and more cystic components. There is a thick wall surrounding the cystic component. There is hemorrhagic fluid in the pelvis. No significant amount of vascularity is identified within either the solid or cystic component. US/US pelvis lmt w transvag IMPRESSION: 1. Abnormal RIGHT adnexa. Findings are highly suspicious for RIGHT adnexal/ova crystal torsion. There is a large thick walled cyst and a large solid component wh ich are new since the CT of 12/30/2024 and the ovary is more centrally positione d. 2. Small amount of hemoperitoneum. 3. Notified JUAN PABLO Kaur at 03/20/2025 12:24 PM.
[2025-03-20] MEDS: metoclopramide 5 mg/mL SDV 2 mL 10 MG IVP (13:11)
[2025-03-20] MEDS: HYDROmorphone 0.5 MG/0.5 ML INJ IVP (13:12)
--- NOTE | 2025-03-20 14:45 | PM.OBGYHP ---
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 History of Present Illness Cherelle Arevalo is a 29 year old female history of , followed by hysterectomy and left oophorectomy in 2018 in [facility] for delivery and uqoe-i-vrmudky pulmonary emboli, was on anticoagulation for approximately 6 months presented to ER today complaining of two-day history of severe right lower quadrant pain with nausea and vomiting no fever Medications/Allergies Home Medications ?Medication ?Instructions ?Recorded ?Confirmed ?Last Taken ?Type omeprazole 40 mg capsule,delayed 40 mg PO DAILY #90 caps 11/27/23 03/20/25 03/18/25 Rx release fluticasone propionate 50 See Rx Instructions .Route 12/04/23 03/20/25 Unknown Rx mcg/actuation nasal .COMPLEX #16 grams spray,suspension albuterol sulfate 90 mcg/actuation 2 puff inhalation Q6H PRN 10/28/24 03/20/25 Unknown Rx aerosol inhaler shortness of breath or wheezing #8.5 grams aripiprazole 5 mg tablet 5 mg PO DAILY #30 tabs 11/29/24 03/20/25 03/18/25 Rx bupropion HCl 300 mg 24 hr tablet, 300 mg PO QAM #30 tabs 11/29/24 03/20/25 03/18/25 Rx extended release (Wellbutrin XL) sertraline 100 mg tablet 200 mg (2 x 100 mg) PO DAILY #60 11/29/24 03/20/25 03/18/25 Rx tabs trazodone 50 mg tablet 100 mg (2 x 50 mg) PO .HS PRN 11/29/24 03/20/25 Unknown Rx insomnia #60 tabs ondansetron 4 mg disintegrating 4 mg PO TID PRN nausea and 12/30/24 03/20/25 Unknown Rx tablet vomiting #30 tabs hydrocodone 5 mg-acetaminophen 325 1 tab PO Q6H PRN pain #15 tabs 02/13/25 03/20/25 Unknown Rx mg tablet promethazine 25 mg tablet 25 mg PO Q6H PRN nausea and 02/13/25 03/20/25 Unknown Rx vomiting #20 tabs ibuprofen 800 mg tablet 800 mg PO Q8H PRN pain #30 tabs 02/21/25 03/20/25 Unknown Rx methocarbamol 750 mg tablet 750 mg PO TID PRN Muscle Spasm 03/20/25 03/20/25 Unknown History Allergies Allergy/AdvReac Type Severity Reaction Status Date / Time duloxetine Allergy sedation Verified 03/20/25 08:31 PFSH 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 PFSH: Medical History (Updated 03/20/25 @ 13:47 by JUAN PABLO Kaur) Strain of muscle, fascia and tendon at neck level, initial encounter Psychiatric care Adult BMI 50.0-59.9 kg/sq m Headache Urinary tract infection Nasal congestion Otitis media Encounter for screening for cardiovascular disorders Medication management Obesity COVID-19 Pulmonary embolism Migraine Depression Surgical History History of hysterectomy only 1 ovary History of Family History Other Psychiatric illness Denies family history of Diabetes CAD (coronary artery disease) Chronic kidney disease (CKD) Lung disease Cancer Hypertension Stroke Social History Smoking and tobacco/nicotine status: never used tobacco/nicotine Alcohol intake: never Substance/Drug Use: never Household members: spouse and children Marital status: Number of children: 3 Current gender identity: Female Vitals/I&O/Wt Last Vital Signs Pulse 90 03/20/25 13:00 Resp 16 03/20/25 13:00 BP 171/101 03/20/25 13:00 Pulse Ox 97 03/20/25 13:00 O2 Del Method Room Air 03/20/25 09:08 Weight last 48 hrs Weight 280 lb Physical Exam Narrative: Weight 280 lbs; 5'1 General in moderate discomfort awake, alert Lungs: clear Cor: RRR Abd: soft, nondistended + moderate tenderness diffusely no rebound Ext: normal WBC [address] of abdomen and pelvis 5-6 cm right ovarian cyst pelvic sono 6 cm complex right ovarian cyst c/w ovarian torsion Data 03/20/25 09:20 03/20/25 09:20 Results Labs OB ([facility]): Hct, (36-47) 38.7 % Today Hgb, (11.27-16.99) 12.40 g/dL Today Plt Count, (157-399) 340 10^3/cmm Today TSH, (0.27-4.20) 0.46 uIU/mL 08/15/24 HCG, Qual, (Negative) Negative Today Micro Urine Specimen 11/30/24 A&P Assessment and plan 1. Cyst of right ovary: Abdominal pain, RLQ, with nausea and vomiting Right ovarian cyst with possible torsion hemoperitoneum h/o hysterectomy and left oophorectomy h/o pulmonary emboli discussed with patient above findings recommend laparoscopy, possible cystectomy, possible oophorectomy, possible exploratory laparotomy discussed risks of surgery Risks include, but not limited to, infection; bleeding; injury to internal organs, such as bladder, bowel, blood vessels; anesthesia; blood transfusions; pulmonary emboli; patient understands and wants to proceed also explained that if oophorectomy is done, patient will be in a surgical menopausal state and may require life-long hormone replacement therapy PDMP PDMP Reviewed: Not Reviewed Attestations Medical Necessity Statement*: patient with abdominal pain and possible ovarian torsion Coding Level of Care Code Acute Code for Chg Fwd Diagnoses Cyst of right ovary N83.201
[2025-03-20] MEDS: D5-NS 0.45% + KCL 20 mEq 20 MEQ/1,000 ML BAG 100 MEQ IV (15:23)
--- NOTE | 2025-03-20 16:36 | P.ANESASSM_ITS ---
Pre-Anesthetic Assessment Height/Weight: Height 1.55 m Weight 111.13 kg Pulse Resp BP Pulse Ox O2 Del Method 78 16 170/98 99 Room Air 03/20/25 14:48 03/20/25 15:23 03/20/25 14:48 03/20/25 14:48 03/20/25 14:53 Operation Date: 03/20/25 15:35 Proposed Procedures p Laparoscopy, right ovarian torsion(Not Applicable) - Antonino Boogie MD Familial anesthetic complications: None Was Beta Jose taken within 24 hours: N/A Was Clonidine taken within 24 hours: N/A Last intake: Intake Last Liquid Date 03/18/25 Last Solid Date 03/18/25 Social No alcohol and No tobacco Exam alert, oriented x 3, clear to auscultation bilaterally and regular rate & rhythm Airway Mallampati: Class II Dentition: full Pulmonary hx pE GI Gastroesophageal Reflux Disease Metabolic Morbid Obesity Anesthetic Plan ASA status: 2 Anesthesia: General Risk of > 500 ml blood loss (7ml/kg in children): No Medications/Allergies Home Medications ?Medication ?Instructions ?Recorded ?Confirmed ?Last Taken ?Type omeprazole 40 mg capsule,delayed 40 mg PO DAILY #90 ca ps 11/27/23 03/20/25 03/18/25 Rx release fluticasone propionate 50 See Rx Instructions .Route 0 12/04/23 03/20/25 Unknown Rx mcg/actuation nasal .COMPLEX #16 grams spray,suspension albuterol sulfate 90 mcg/actuation 2 puff inhalation Q 6H PRN 10/28/24 03/20/25 Unknown Rx aerosol inhaler shortness of breath or wheez ing #8.5 grams aripiprazole 5 mg tablet 5 mg PO DAILY #30 tabs 11/2903/20/25 03/18/25 Rx bupropion HCl 300 mg 24 hr tablet, 300 mg PO QAM #30 t abs 11/29/24 03/20/25 03/18/25 Rx extended release (Wellbutrin XL) sertraline 100 mg tablet 200 mg (2 x 100 mg) PO DAILY #60 11/29/24 03/20/25 03/18/25 Rx tabs trazodone 50 mg tablet 100 mg (2 x 50 mg) PO .HS UT N 11/29/24 03/20/25 Unknown Rx insomnia #60 tabs ondansetron 4 mg disintegrating 4 mg PO TID PRN nausea and 12/30/24 03/20/25 Unknown Rx tablet vomiting #30 tabs hydrocodone 5 mg-acetaminophen 325 1 tab PO Q6H PRN pa in #15 tabs 02/13/25 03/20/25 Unknown Rx mg tablet promethazine 25 mg tablet 25 mg PO Q6H PRN nausea and 02/13/25 03/20/25 Unknown Rx vomiting #20 tabs ibuprofen 800 mg tablet 800 mg PO Q8H PRN pain #30 t abs 02/21/25 03/20/25 Unknown Rx methocarbamol 750 mg tablet 750 mg PO TID PRN Muscle S pasm 03/20/25 03/20/25 Unknown History Allergies Allergy/AdvReac Type Severity Reaction Status Date / Time duloxetine Allergy sedation Verified 03/20/25 08:31 Current Medications Generic Name Dose Route Start Last Admin Trade Name Freq PRN Reason Stop Dose Admin Potassium Chloride/Dextrose/Sod Cl 20 meq in 1,000 mls @ 100 mls/hr 03/20/25 15:00 03/20/25 15:23 D5-Ns 0.45% + Kcl 20 Meq IV 100 mls/hr .Q10H SANDRA Administration Morphine Sulfate 4 mg 03/20/25 14:53 03/20/25 15:23 Morphine 4 Mg/Ml Sdv 1 Ml IVP 4 mg Q4H PRN Administration SEVERE PAIN Ondansetron HCl 4 mg 03/20/25 14:53 03/20/25 15:23 Ondansetron 2 Mg/Ml Sdv 2 Ml IVP 4 mg Q6H PRN Administration NAUSEA AND VOMITING PFSH Anesthesia Medical History (Updated 03/20/25 @ 13:47 by JUAN PABLO Kaur) Strain of muscle, fascia and tendon at neck level, initial encounter Psychiatric care Adult BMI 50.0-59.9 kg/sq m Headache Urinary tract infection Nasal congestion Otitis media Encounter for screening for cardiovascular disorders Medication management Obesity COVID-19 Pulmonary embolism Migraine Depression Surgical History History of hysterectomy only 1 ovary History of Family History Other Psychiatric illness Denies family history of Diabetes CAD (coronary artery disease) Chronic kidney disease (CKD) Lung disease Cancer Hypertension Stroke Social History Smoking and tobacco/nicotine status: never used tobacco/nicotine Alcohol intake: never Substance/Drug Use: never Household members: spouse and children Marital status: Number of children: 3 Current gender identity: Female Data Anesthesia 03/20/25 09:20 03/20/25 09:20 Short CBC 03/20/25 Range/Units 09:20 WBC 15.18 H (3.29-11.43) 10^3/uL Hgb 12.40 (11.27-16.99) g/dL Hct 38.7 (36-47) % MCV 80.6 L (85-98) fl Plt Count 340 (157-399) 10^3/cmm Neut % (Auto) 79.8 % Neut # (Auto) 12.12 H (1.8-7.7) 10^3/uL BMP 03/20/25 09:20 Sodium 138 Potassium 3.5 Chloride 100 Carbon Dioxide 25 BUN 12 Creatinine 0.7 Glucose 103 Calcium 9.0 Liver Function 03/20/25 Range/Units 09:20 Total Bilirubin 0.4 (0.15-1.2) mg/dL AST 13 (0-32) U/L ALT 14 (0-33) U/L Alkaline Phosphatase 93 (35-105) U/L Albumin 3.7 (3.5-5.2) g/dL Urine 03/20/25 Range/Units 09:35 Urine Color Dark yellow A (Yellow) Urine Appearance Cloudy A (CLEAR) Urine pH 5.5 (5-7) Ur Specific [place] 1.026 (1.005-1.030) Urine Protein Trace A (Negative) Urine Glucose (UA) Negative (Normal) Urine Ketones Negative (Negative) Urine Nitrate Negative (Negative) Urine Bilirubin Negative (Negative) Ur Leukocyte Esterase Negative (Negative) Urine RBC None (0-2) /hpf Urine WBC 0-4 H (0-5) /hpf
--- NOTE | 2025-03-20 18:43 | W.PM.OPSUD ---
Surgery/Procedure H&P Update DATE OF PROCEDURE: March 20, 2025 DATE H&P PERFORMED: 03/20/25 H&P UPDATE INFORMATION: I have reviewed H&P completed within last 30 days, I have examined patient prior to procedure and No changes to prior documentation PREOP DIAGNOSIS: ovarian torsion PLANNED PROCEDURE: Operation Date: 03/20/25 15:35 Proposed Procedures p Laparoscopy, right ovarian torsion(Not Applicable) - Antonino Boogie MD
--- NOTE | 2025-03-20 20:10 | PM.OP ---
Operative Report Date of procedure: March 20, 2025 Pre-op diagnosis: h/o past hysterectomy and left oophorectomy acute severe pelvic pain complex right ovarian cyst with torsion Post-op diagnosis: same Post-op findings: Absent uterus and left ovary Presence of a 6-7 cm right complex cyst involving right ovary Appears gangrenous Procedure done: Laparoscopy Laparoscopic right oophorectomy Implants: none Specimens removed/disposition: right ovary, sent to pathology Surgeon: Antonino Boogie MD Anesthesia: General Estimated blood loss (mL): 20 Complications: none Findings: see above Condition: stable Disposition: PACU Brief History: 29 y.o. h/o hysterectomy and left oophorectomy presented with acute onset of severe pelvic pain ultrasound showed 6 cm complex right ovary cyst with torsion Procedure: The patient was taken to the OR and placed supine on the table. General endotracheal anesthesia was given. The abdomen and perineum were prepped and draped in usual fashion. A avina catheter was placed. A 2 mm incision was made in the left upper quadrant 3 cm from the inferior costal angle. A Veress needle was placed into the abdominal cavity. Adequate pneumoperitoneum was achieved. A 5 mm subumbilical skin incision was made. A 5 mm trocar with sheath was then inserted into the peritoneal cavity under direct visualization with the laparoscope. Two separate 5 mm incisions were made in the right and mid-abdominal quadrants under direct visualization to accommodate additional trocars and sheaths. The pelvis was explored with the laparoscope. The uterus, left ovary, and bilateral fallopian tubes were noted to be absent. The right ovary was seen to be 6 cm and gangrenous appearing, with the infundibulopelvic ligament noted to be twisted on itself. Adhesions were also noted in the left pelvis from the anterior abdominal wall to the omentum. A Ligasure device was then used to excise the right ovary by coagulating and cutting the IP ligament close to the ovary. Blood and fluid was suctioned from the pelvis. The subumbilical skin incision was extended to 10 mm using a scalpel to accommodate a 10 mm trocar. An endopouch was used to remove the ovary from the abdominal cavity. This was sent to pathology. No bleeding was seen The liver edge was visualized and was normal. The remainder of the pelvis was again examined and seen to be normal. All instruments were then removed from the abdominal cavity after the pneumoperitoneum was allowed to escape. The subumbilical fascia was closed with a stitch of O-Vicryl The skin incisions were closed with 4-O monocryl. Dermabond was applied. The avina catheter was removed. The patient was then awakened and taken to the recovery room in good condition. Postop condition stable. EBL 20 cc. There were no complications. Sponge and instrument counts were correct x two
[2025-03-20] MEDS: fentaNYL 50 mcg/mL INJ 2mL IVP (21:10)
[2025-03-21] VITALS (7 sets, daily range): BP systolic 110–126; BP diastolic 57–80; PULSE 85–97; RESP 15–18; TEMP 36.8–36.9; O2SAT 90–98
[2025-03-21] MEDS: oxyCODONE-APAP 5-325 mg Tablet 1 TAB PO ×2 (08:11→12:08)
[2025-03-21] MEDS: ondansetron 2 mg/ML SDV 2 mL 4 MG IVP (09:42)
--- OUTSIDE RECORDS SUMMARY | 2025-03-21 11:54 | XMS_ITS | Clinical Summary ---
Author Organization [facility] Address [address] 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9 cm (5' 1 ) 04/08/2024 10:22 AM ELEMENTARY SCHOOL MUSIC TEACHER Body Mass Index 50.83 04/08/2024 10:22 AM ELEMENTARY SCHOOL 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
--- OUTSIDE RECORDS SUMMARY | 2025-03-21 11:55 | XMS_ITS | Patient Health Record ---
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 Name Role Phone Fidelina NICOLE, Kayden Primary Care Provider Unavailab Nj Jasso Unavailable [phone] Vee Shankar Unavailable Allergies Allergen (clinical drug ingredient) Drug/Non Drug Allergy documented on EMR Reaction Allergy Type Onset Date Status duloxetine DULoxetine Unknown Drug Allergy Activ e Results Component Value Reference Range Flag Notes UA Without Micro-[place], [place] - [id number] Reviewed date:12/10/2024 01:17:41 PM Interpretation: Performing Lab: Notes/Report: Glucose 0 Bili 1+ Ketones 0 Sp [place] 1.025 Blood 3+ pH 6.0 Protein 1+ Urobili 0 Nitrites 0 Leukocytes 1+ Retrograde Urography Reviewed date:02/19/2025 07:14:32 AM Interpretation: Performing Lab: Notes/Report: [id number]=iSite Culture Urine [id number] Reviewed date:01/06/2025 09:00:37 AM Interpretation: Performing Lab: Notes/Report: Culture Urine CHREELLE Waite Culture Urine t: Culture Urine Culture Urine Accessio [id number] Culture Urine n: Culture Urine Microbiology Culture [...] Culture Urine O1: Culture Urine (Culture Urine [id number]) Culture Urine Diagnosis Descriptio n: Unspecified symptoms and signs involving the genitourinary system Retrograde Urography Reviewed date:02/19/2025 07:14:32 AM Interpretation: Performing Lab: Notes/Report: See Below For Report Retrograde Urography Read See Below For Report Chest PA/Lat-[id number] Reviewed date:02/07/2025 02:01:07 PM Interpretation: Performing Lab: Notes/Report: See Below For Report Chest PA/Lat Read See Below For Report CBC w\ Auto Diff [id number] Reviewed date:02/05/2025 09:04:22 AM Interpretation: Performing Lab: [...] HI Lymph Auto% 15.0 22.0-44.0 % LOW [place] Auto% 8.3 3.0-7.0 % HI Eos Auto% 2.6 2.0-4.0 % Baso Auto% 0.4 0.0-1.0 % Imm Gran% .2 .0-.4 % Neutro Abs 6.85 .80-7.70 Absolute Neutrophil Count 6850 NA Lymph Abs 1.40 .10-4.10 [place] Abs .77 .20-1.00 Eos Abs .24 .00-.40 Baso Abs .04 .00-.20 Imm Gran Abs .02 .00-.10 NRBC# .00 .00-.20 X10'3 NRBC% .00 .00-.20 /100 intact WBC's Basic Metabolic Panel (BMP) [id number] Reviewed date:02/05/2025 09:04:31 AM Interpretation: Performing Lab: Notes/Report: Sodium 138 136-145 MMOL/L Potassium 4.0 3.5-5.1 MMOL/L Chloride 98 98-107 MMOL/L CO2 25.8 20.0-31.0 MMOL/L Glucose Serum 84 71-110 MG/DL Testing p erformed at [facility], [address] [place] [address] [place] [address]. CLIA ID#: [id number] BUN 13 7-21 MG/DL Creat .82 .51-1.17 MG/DL Use of this assay is not recommended for patients undergoing treatment with phenindione, due to the potential for falsely depressed results. B-dtbrsn-c-benzoquin one imine (NAPQI) is a metabolite of acetaminophen, NAPQI concentrations of apparoximately 10 mg/L correlation to toxic levels of acetaminophen demonstrates a greater than or equil to 10% change in results. NAPQI concentrations greater than this may lead to falsely depressed results for patient samples. GFR 97.3 NA Calculation pe rformed from [...] 8.7-10.4 MG/DL Osmo Serum,Calculated 285 280-300 MOSM/KG Culture Urine [id number] Reviewed date:02/05/2025 04:48:57 PM Interpretation: Performing Lab: Notes/Report: Culture Urine CHERELLE Waite Culture Urine t: Culture Urine Culture Urine Accessio [id number] Culture Urine n: Culture Urine Microbiology Culture [...] Urine Nitrofurantoin <=16 Susceptible Culture Urine Piperacillin/Tazobac condon <=4 Susceptible Culture Urine Trimethoprim/Sulfa > =320 Resistant Retrograde Urography Reviewed date:01/13/2025 03:13:09 PM Interpretation: Performing Lab: Notes/Report: See Below For Report Retrograde Urography Read See Below For Report Retrograde Urography Reviewed date:01/13/2025 03:13:09 PM Interpretation: Performing Lab: Notes/Report: [id number]=iSite UA Without Micro-[place], [place] - [id number] Reviewed date:02/19/2025 10:08:09 AM Interpretation: Performing Lab: Notes/Report: Glucose - Bili - Ketones - Sp [place] 1.015 Blood 2+ pH 6.0 Protein - Urobili - Nitrites - Leukocytes - Culture Urine [id number] Reviewed date:01/28/2025 01:46:27 PM Interpretation: Performing Lab: Notes/Report: Culture Urine CHERELLE Waite Culture Urine t: Culture Urine Culture Urine Accessio [id number] Culture Urine n: Culture Urine Microbiology Culture Urine PROCEDURE: Culture U rine [O1] Culture Urine SOURCE: Urine BODY SITE: Culture Urine COLLECTED DATE/TIME: 01/22/2025 09:27 CDT RECEIVED DATE/TIME: 01/22/2025 15:41 CDT Culture Urine START DATE/TIME: 01/22/2025 15:41 CDT FREE TEXT SOURCE: Culture Urine FINAL REPORT Culture Urine Final Report [] Culture Urine Verified Date/Time: 01/24/2025 08:48 CDT Culture Urine >10,000 cfu/ml Mixed enteric maribel Culture Urine 3 or more isolates o f Gram Negative Rods with no predominant pathogen observed. Culture Urine No further work-up i s indicated Culture Urine Order Comments Culture Urine O1: Culture Urine (Culture Urine [id number]) Culture Urine Diagnosis Descriptio n: Presence of urogenital implants UA Without Micro-Auto, [place] - [id number] Reviewed date:01/22/2025 09:23:59 AM Interpretation: Performing Lab: Notes/Report: Glucose 0 Bili 0 Ketones 0 Sp [place] 1.020 Blood 3+ pH 6.0 Protein 2+ Urobili 0 Nitrites + Leukocytes 2+ Culture Urine [id number] Reviewed date:01/02/2025 11:04:01 AM Interpretation: Performing Lab: Notes/Report: Culture Urine CHERELLE Waite Culture Urine t: Culture Urine Culture Urine Accessio [id number] Culture Urine n: Culture Urine Microbiology Culture [...] Culture Urine O1: Culture Urine (Culture Urine [id number]) Culture Urine Diagnosis Descriptio n: Unspecified abnormal findings in urine Chest JUAN PABLO/Isela-[id number] Reviewed date:02/07/2025 02:00:51 PM Interpretation: Performing Lab: Notes/Report: [id number]=iSite Reason For Referral Reason Referring to Dr Seven grewal Thank you! Diagnosis 1 Chronic cystitis (N3 0.20) Referral Organization [facility] Referring Provider First Name Nj Referring Provider Last Name Hafsa Referring Provider Speciality Urology Referred Organization [facility] Referred Provider Tyrone French Referred Address [address] [place] [address],[place], [place],[address], Referred Provider Specialty Infectious D isease Referral Priority Routine Medications Medication SIG (Take, Route, Frequency, Duration) Notes Start Date End Date Status ARIPiprazole 5 MG Tablet TAKE 1 TABLET [...] THE MORNING Oral; Duration: 30 Days Not-Taking Solifenacin Succinate 10 MG Tablet 1 tablet Orally Once a day; Duration: 14 days 01/01/2025 Not-Takin g Tamsulosin HCl 0.4 MG Capsule 1 capsule Orally Once a day at bedtime; Duration: 14 days 01/01/2025 Not-Taking Sertraline HCl 100 MG Tablet TAKE 2 TABLETS BY MOUTH ONCE DAILY Oral; Duration: 30 Days Not-Taking Ondansetron 4 MG Tablet Disintegrating 1 tablet on the tongue and allow to dissolve Orally EVERY 6 HOURS; Duration: 30 days As needed 12/10/2024 Active Ondansetron 8 MG Tablet Disintegrating 1-2 tablets Orally every 6 hours; Duration: 20 days as needed allow to dissolve on the tongue 01/09/2025 Active Social History Tobacco Use: Social History Observation Description Date Details (start date - stop date) Never Smoker NA - NA Social History Tobacco Use: Social Info Question Answer Notes Tobacco Control (Standard) Tobacco use: Nonsmoker Section Notes: caffeine- pos alcohol- on occassion caffeine- pos alcohol- on occassion caffeine- pos alcohol- on occassion Problems Problem Type SNOMED Code ICD Code Onset Dates Problem Status W/U Status Risk Notes Problem Chronic cystitis (78780608) Chronic cystitis (N30.20) Active confirmed Problem Ureteral stent present (Z96.0) Active confirmed Vital Signs Heart Rate 85 /min 02/19/2025 Temperature 97.6 degrees Fahrenheit 02/19/2025 Height-cm 154.94 cm 02/19/2025 Blood pressure diastolic 74 mm Hg 02/19/2025 Weight-kg 125.46 kg 02/19/2025 Height 61 in 02/19/2025 Blood pressure systolic 118 mm Hg 02/19/2025 Weight 276.6 lbs 02/19/2025 BMI 52.26 kg/m2 02/19/2025 Encounters Encounter Location Date Provider Diagnosis [facility] [address] [place] [address] 02/19/2025 Nj Pereyra Nephrolithiasis N20. 0 and Chronic cystitis N30.20 [facility] [address] [place] [address] Dr [address] [place] [address], [place] [address] 12/10/2024 Vee Shankar Calculus of ureter N20.1 ; Ureteral stent present Z96.0 ; Pyonephrosis N13.6 ; Nausea R11.0 and Unspecified abnormal findings in urine R82.90 [facility] [address] [place] [address] [place] [address] 01/22/2025 Nj Pereyra Ureteral stent prese nt Z96.0 ; Acute cystitis N30.00 and Chronic cystitis N30.20 [facility] [address] [place] [address] [place] [address] 01/03/2025 Nj Pereyra Unspecified symptoms and signs involving the genitourinary system R39.9 [facility] [address] [place] [address] [place] [address] 01/01/2025 Nj Pereyra [facility] [address] [place] [address] [place] [address] 01/01/2025 [facility] [address] [place] [address] 12/30/2024 [facility] [address] [place] [address] 12/23/2024 [facility] [address] [place] [address] 12/18/2024 [facility] [address] [place] [address] 12/10/2024 [facility] [address] [place] [address] 12/10/2024 [facility] [address] [place] [address] 12/10/2024 [facility] [address] [place] [address] 12/09/2024 [facility] [address] [place] [address] 02/06/2025 [facility] [address] [place] [address] 01/29/2025 [facility] [address] [place] [address] 01/22/2025 [facility] [address] [place] [address] 01/21/2025 [facility] [address] [place] [address] 01/20/2025 [facility] [address] [place] [address] 01/09/2025 [facility] [address] [place] [address] 01/09/2025 [facility] [address] [place] [address] 01/09/2025 [facility] [address] [place] [address] 01/06/2025 Nj Pereyra [facility] [address] [place] [address] 01/03/2025 Nj Pereyra Assessments Encounter Date Diagnosis (ICD Code) Assessment Notes Treatment Notes Treatment Clinical Notes Section Notes 01/03/2025 Unspecified symptoms and signs involving the genitourinary system (ICD-10 - R39.9) 12/10/2024 Calculus of ureter (ICD-10 - N20.1) 12/10/2024 Ureteral stent present (ICD-10 - Z96.0) 01/22/2025 Acute cystitis (ICD-10 - N30.00) 01/22/2025 Ureteral stent present (ICD-10 - Z96.0) 02/19/2025 Chronic cystitis (ICD-10 - N30.20) 02/19/2025 Nephrolithiasis (ICD-10 - N20.0) 12/10/2024 Pyonephrosis (ICD-10 - N13.6) 01/22/2025 Chronic [...] one week. Left Stone manipulation as scheduled. 02/19/[address] French for chronic cystitis 6 weeks with nurse practitioner with [facility]. Plan Of Treatment Next Appt Details Provider Name:Nj sims, 03/31/2025 10:15:00 AM, [address] [place] [address], [place], [address], Provider Name:Vee House, 04/09/2025 10:00:00 AM, [address], [place], [address], Provider Name:Tyronemaria r sims, 04/14/2025 01:45:00 PM, [address], [address], [place], [address], Insurance Providers Payer Name Payer Address Payer Phone Subscriber Number Group Number Insured Name Patient Relationship to Insured Coverage Start Date Coverage End Date [facility] Medicaid Replacement [address] [address] [place] [address] [id number] Cherelle Arevalo Self - patient is the insured 4 5 [place] Medicaid [address] [place] [address] [id number] Cherelle Arevalo Self - patient is the insured Medications Administered Medication Instructions Date of Administration Dosage Notes cefTRIAXone Sodium 01/22/2025 1 g Lidocaine HCl 01/22/2025 20 mg Used to rec onstitute Rocephin Medical (General) History Medical History History ICD Code Kidney stones Surgical History Surgery Date(Month/Year) c section pulmonary embolism partial hysterectomy Ureteral stent exchange stone manipulation
== END 2025-03-21 13:45 | disposition home or self-care (01) ==
LOC: ER 13:47 → OBGYN 14:37
PROVIDERS: Admitting Provider Obstetrics & Gynecology; Emergency Provider Physician Assistant; PCP Family Medicine; Visit Provider Obstetrics & Gynecology
PROC: (CPT 49320; principal; 2025-03-20 15:35)
DX: N83.201 Unspecified ovarian cyst, right side (principal); R10.20 Pelvic and perineal pain unspecified side; K21.9 Gastro-esophageal reflux disease without esophagitis; Z79.891 Long term (current) use of opiate analgesic; E66.01 Morbid (severe) obesity due to excess calories; Z68.42 Body mass index [BMI] 45.0-49.9, adult; I26.99 Other pulmonary embolism without acute cor pulmonale; F32.A Depression, unspecified
CPT/HCPCS: 58661; 36415; 51702; 74177; 76830; 76857; 80053; 81001; 83690; 84703; 85025; 88305; 96374; 96375; 96376; 99285; A4216; G0378; J1171; J2250; J2270; J2405; J2704; J2765; J3010; J3490; J7030; J9999

== ENCOUNTER 2025-03-25 10:56 | Emergency (ER) | payer MEDICAID, SELFPAY ==
[2025-03-25 11:05] VITALS: BP 143/103; PULSE 82; RESP 18; TEMP 36.7; O2SAT 99
--- NOTE | 2025-03-25 11:30 | USCV_ITS ---
Mickey Cherelle Age: 29 Gender: F : 1995 Exam Date: 03/25/2025 11:57 Ordering Phys: Attila Molina MD Technologist: Exam Location: [facility] Indication: hand swelling post op hx of dvt and pe PROCEDURES: Venous duplex imaging was performed in only the right upper extremity. The following venous structures were evaluated: internal jugular vein, subclavian vein, axillary vein, and brachial veins. In addition, the basilic vein, cephalic vein, radial vein, and ulnar vein. FINDINGS: The veins of the right upper extremity are readily compressible with normal venous flow dynamics including spontaneous flow, respiratory phasic variation and augmentation. No evidence of deep vein thrombosis or superficial thrombophlebitis in the right upper extremity. CONCLUSIONS No right upper extremity DVT. Dr. Ludivina Mann DO (Electronically Signed) Final Date: 25 March 2025 14:46 S
--- NOTE | 2025-03-25 11:30 | W.ED.GENADLT ---
HPI - General Adult General: Chief complaint: General Medical Stated complaint: R hand numbness tingling Time Seen by Provider: 03/25/25 11:22 Source: patient Mode of arrival: ambulatory Limitations: no limitations History of Present Illness: 29-year-old female is here last week had surgery for an ovarian torsion. She states she has been having some numbness to her right arm with bruising to her hand was concerned of a possible DVT she denies any severe pain denies any injuries did not have an IV in that hand. She denies any fevers or abdominal pain to me currently. Related Data Home Medications ?Medication ?Instructions ?Recorded ?Confirmed methocarbamol 750 mg tablet 750 mg PO TID PRN Muscle Spasm 03/20/25 03/20/25 Previous Rx's ?Medication ?Instructions ?Recorded omeprazole 40 mg capsule,delayed 40 mg PO DAILY #90 caps 11/27/23 release fluticasone propionate 50 See Rx Instructions .Route 12/04/23 mcg/actuation nasal .COMPLEX #16 grams spray,suspension albuterol sulfate 90 mcg/actuation 2 puff inhalation Q6H PRN 10/28/24 aerosol inhaler shortness of breath or wheezing #8.5 grams aripiprazole 5 mg tablet 5 mg PO DAILY #30 tabs 11/29/24 bupropion HCl 300 mg 24 hr tablet, 300 mg PO QAM #30 tabs 11/29/24 extended release (Wellbutrin XL) sertraline 100 mg tablet 200 mg (2 x 100 mg) PO DAILY #60 11/29/24 tabs trazodone 50 mg tablet 100 mg (2 x 50 mg) PO .HS PRN 11/29/24 insomnia #60 tabs ondansetron 4 mg disintegrating 4 mg PO TID PRN nausea and 12/30/24 tablet vomiting #30 tabs hydrocodone 5 mg-acetaminophen 325 1 tab PO Q6H PRN pain #15 tabs 25 mg tablet promethazine 25 mg tablet 25 mg PO Q6H PRN nausea and 02/13/25 vomiting #20 tabs ibuprofen 800 mg tablet 800 mg PO Q8H PRN pain #30 tabs 02/21/25 conjugated estrogens 0.3 mg tablet 0.3 mg PO DAILY #30 tabs 03/21/25 (Premarin) oxycodone-acetaminophen 5 mg-325 1 tab PO Q6H PRN pain #30 tabs 03/21/25 mg tablet (Percocet) Allergies Allergy/AdvReac Type Severity Reaction Status Date / Time duloxetine Allergy sedation Verified 03/20/25 08:31 Review of Systems Musc: Reports: extremity swelling PFSH ED PFSH: Medical History Strain of muscle, fascia and tendon at neck level, initial encounter Psychiatric care Adult BMI 50.0-59.9 kg/sq m Headache Urinary tract infection Nasal congestion Otitis media Encounter for screening for cardiovascular disorders Medication management Obesity COVID-19 Pulmonary embolism Migraine Depression Surgical History History of hysterectomy only 1 ovary History of Family History Other Psychiatric illness Denies family history of Diabetes CAD (coronary artery disease) Chronic kidney disease (CKD) Lung disease Cancer Hypertension Stroke Social History Smoking and tobacco/nicotine status: never used tobacco/nicotine Alcohol intake: never Substance/Drug Use: never Household members: spouse and children Marital status: Number of children: 3 Current gender identity: Female Physical Exam Const: COMMON NORMALS: patient oriented x3 HENMT: COMMON NORMALS: normocephalic and atraumatic HEAD & SCALP: normocephalic and atraumatic Neck/C-Spine: COMMON NORMALS: full ROM and supple Chest: COMMONS NORMALS: normal inspection of the chest and normal palpation of entire chest wall Resp: COMMON NORMALS: normal respiratory effort Cardio: COMMON NORMALS: regular rate, regular rhythm and No murmurs present (Cardio) RATE: regular rate RHYTHM: regular rhythm GI: COMMON NORMALS: Normal to inspection, nondistended, normoactive bowel sounds present, Soft to palpation, non-tender and no masses PALPATION: Yes Soft to palpation Extremity: COMMON NORMALS: full ROM NARRATIVE EXTREMITY EXAM: Slight bruising to right hand along with some swelling Neuro: COMMON NORMALS: patient oriented x3, moves all extremities and no focal motor deficits Psych: COMMON NORMALS: mental status grossly normal, Normal thought process present and cooperative THOUGHT PROCESS: Normal thought process present Skin: COMMON NORMALS: no rashes or lesions noted and no wounds GENERAL SKIN EXAM: no rashes or lesions noted Course Vital Signs: Vital signs: Vital Signs Temperature 98.1 F 03/25/25 11:05 Pulse Rate 82 03/25/25 11:05 Respiratory Rate 18 03/25/25 11:05 Blood Pressure 143/103 03/25/25 11:05 Pulse Oximetry 99 03/25/25 11:05 Oxygen Delivery Me thod Room Air 03/25/25 11:05 [facility] - General Adult Medical Decision Making Patient presents here with bruising to her right hand along with some slight arm swelling. Ultrasound here shows no signs of DVT she has no signs of cellulitis. She did likely hit her hand and did not realize it or may have had a IV attempt while she had had surgery. She has minimal pain on exam here she stable for discharge follow-up with PCP return if worsening. Medical Records I reviewed the patient's medical records. All radiology interpretation(s) finalized by discharge Discharge Plan Discharge Patient Disposition: Home Clinical Impression: Contusion of hand, right Condition: Stable Prescriptions: No Action aripiprazole 5 mg tablet 5 mg PO DAILY Qty: 30 2RF sertraline 100 mg tablet 200 mg PO DAILY Qty: 60 2RF trazodone 50 mg tablet 100 mg PO .HS PRN (Reason: insomnia) Qty: 60 2RF bupropion HCl [Wellbutrin XL] 300 mg tablet extended release 24 hr 300 mg PO QAM Qty: 30 2RF ibuprofen 800 mg tablet 800 mg PO Q8H PRN (Reason: pain) Qty: 30 0RF omeprazole 40 mg capsule,delayed release(DR/EC) 40 mg PO DAILY Qty: 90 3RF fluticasone propionate 50 mcg/actuation spray,suspension See Rx Instructions .ROUTE .COMPLEX Qty: 16 1RF Dose Instruction: ADMINISTER 1 SPRAY INTO EACH NOSTRIL TWICE DAILY NEEDED FOR NASAL CONGESTION Rx Instructions: ADMINISTER 1 SPRAY INTO EACH NOSTRIL TWICE DAILY NEEDED FOR NASAL CONGESTION albuterol sulfate 90 mcg/actuation HFA aerosol inhaler 2 puff inhalation Q6H PRN (Reason: shortness of breath or wheezing) Qty: 8.5 0RF ondansetron 4 mg tablet,disintegrating 4 mg PO TID PRN (Reason: nausea and vomiting) Qty: 30 0RF hydrocodone-acetaminophen 5-325 mg tablet 1 tab PO Q6H PRN (Reason: pain) Qty: 15 0RF promethazine 25 mg tablet 25 mg PO Q6H PRN (Reason: nausea and vomiting) Qty: 20 0RF methocarbamol 750 mg tablet 750 mg PO TID PRN (Reason: Muscle Spasm) conjugated estrogens [Premarin] 0.3 mg tablet 0.3 mg PO DAILY Qty: 30 3RF Rx Instructions: cyclically oxycodone-acetaminophen [Percocet] 5-325 mg tablet 1 tab PO Q6H PRN (Reason: pain) Qty: 30 0RF Discharge Orders: Discharge ED (Routine); Ordered 03/25/25 Ordered By: Attila Molina Referrals: Kayden Kitchen MD [Primary Care Provider, Family Practice] - 4-7 days Discharge Diet: Advance as tolerated Discharge Activity: Resume usual activity Patient Instructions: Contusion in Adults (ED) Print Language: Danish Coding Level of Care Code ED Space Systems Operations Manager for Ankit Powers
== END 2025-03-25 12:13 | disposition home or self-care (01) ==
PROVIDERS: Emergency Provider Emergency Medicine; PCP Family Medicine
DX: S60.221A Contusion of right hand, initial encounter (principal); X58.XXXA Exposure to other specified factors, initial encounter
CPT/HCPCS: 93971; 99284